=== PATIENT | female | born 1945 | race Caucasian/White ===

== ENCOUNTER 2016-12-08 11:15 | Inpatient (IN) | payer BC, MEDICARE ==
[~2016-12-08] VITALS: Ht 153.7 cm; Wt 52.5 kg
[2016-12-08] MEDS ORDERED: NS 1,000 ML IV ONE (12:15)
[2016-12-08 12:39] LABS: BASO # 0.1 K/mm3 (0.0-0.2); BASO % 0.4 % (0.0-1.0); EOS # 0.1 K/mm3 (0.0-0.50); EOS % 0.4 % (0.0-3.0); LARGE UNSTAINED CELL # 0.4 K/mm3 (0.0-0.4); LARGE UNSTAINED CELL % 1.9 % (0.0-4.0); LYMPH # 2.3 K/mm3 (1.5-4.5); LYMPH % 9.7 % (24.0-44.0); MEAN CORPUSCULAR HEMOGLOBIN 27.3 pg (27.0-33.0); MEAN CORPUSCULAR HGB CONC 31.1 g/dl (32.0-36.5); MEAN CORPUSCULAR VOLUME 87.9 fl (80.0-96.0); MONO # 1.1 K/mm3 (0.0-0.8); MONO % 5.6 % (0.0-5.0); NEUTROPHILS # 16.2 K/mm3 (1.8-7.7); NEUTROPHILS % 82.1 % (36.0-66.0); PLATELET COUNT, AUTOMATED 588 k/mm3 (150-450); RED CELL DISTRIBUTION WIDTH 13.8 % (11.5-14.5); WHITE BLOOD COUNT 19.7 K/mm3 (4.0-10.0)
[2016-12-08 13:02] LABS: ALBUMIN 2.5 GM/DL (3.2-5.2); ALBUMIN/GLOBULIN RATIO 0.42 (1.00-1.93); ALKALINE PHOSPHATASE 335 U/L (45-117); ALT/SGPT 24 U/L (12-78); AMYLASE 48 U/L (25-115); ANION GAP 9 MEQ/L (8-16); AST/SGOT 19 U/L (15-37); BILIRUBIN,DIRECT < 0.1 MG/DL (0.0-0.2); BILIRUBIN,TOTAL 0.3 MG/DL (0.2-1.0); BLOOD UREA NITROGEN 23 MG/DL (7-18); CALCIUM LEVEL 9.3 MG/DL (8.8-10.2); CARBON DIOXIDE LEVEL 27 MEQ/L (21-32); CHLORIDE LEVEL 99 MEQ/L (98-107); CREATININE FOR GFR 1.15 MG/DL (0.55-1.02); GLOMERULAR FILTRATION RATE 49.7 (>39); GLUCOSE, FASTING 120 MG/DL (83-110); POTASSIUM SERUM 4.2 MEQ/L (3.5-5.1); SODIUM LEVEL 135 MEQ/L (136-145); TOTAL PROTEIN 8.4 GM/DL (6.4-8.2)
[2016-12-08] MEDS ORDERED: ISOVUE-370 76% 100ML VIAL (Q9967) As Ordered ONE (13:36)
[2016-12-08] MEDS ORDERED: MORPHINE 2 MG/ML 1ML SYRINGE IV ONE (14:15)
--- NOTE | 2016-12-08 14:19 | REP ---
CT study of the abdomen and pelvis with IV but without oral contrast: History: Large left breast mass question malignancy, metastases. Comparison CT study abdomen and pelvis is from January 03, 2009. Findings: Preliminary digital environmental science technician radiograph of the abdomen and pelvis show a normal bowel gas pattern. There are granulomatous calcifications in the liver and scattered in the spleen. No hepatic or splenic mass lesion is observed. No adrenal lesion is seen on either side. Pancreas is intact. The main pancreatic duct is somewhat dilated however measuring 5 mm in greatest diameter. The gallbladder and common bile duct are not dilated. There is a phrygian cap like configuration to the gallbladder. There is moderate left-sided hydronephrosis. This is associated with a large calculus, 1.7 x 1.0 cm in diameter lodged in the ureteropelvic junction. There is a droplet of air at the superior margin of the calculus and a tiny bubble of air is seen in the cortical medullary junction of the upper pole of the left kidney. The right kidney is unremarkable. The patient is status post hysterectomy. Small and large intestinal bowel loops are unremarkable. There are three or four left periaortic retroperitoneal lymph nodes, the largest of which measures 1.8 x 1.4 cm. These could be reactive. No other adenopathy. Bone window settings show no bony destructive lesion. Impression: 1. 1.7 cm obstructing ureteropelvic junction stone at the left kidney with moderate to marked left-sided hydronephrosis. Two bubbles of collecting system air are seen raising the question of emphysematous pyelonephritis versus post instrumentation gas. 2. Mildly dilated main pancreatic duct, no evidence of pancreatic mass. 3. Mild left periaortic retroperitoneal lymphadenopathy question reactive adenopathy. Signed by Clark López MD 12/08/2016 06:27 P
--- NOTE | 2016-12-08 14:40 | REP ---
CT study of the chest with IV contrast: History: Large left breast mass. Question malignancy, question metastasis. CT contrast dose: 100 mL of Isovue 370 is administered intravenously by auto injector. CT findings: Digital preliminary process tech radiograph demonstrates an irregular mass projecting in the left perihilar region. 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 A deep 3.6 cm wide ulceration is seen. The lesion appears to extend to the superficial surface of the pectoralis musculature. Overall, the left breast mass measures 8.6 x 3.2 x 7.1 cm. There is left axillary lymphadenopathy with a left axillary lymph node measuring 2.0 x 0.8 x 1.7 cm. There is fairly extensive skin thickening and subdermal edema in the inferior aspect of the left breast. No hilar or mediastinal mass or adenopathy is observed. There are one or two granulomatous calcified lymph nodes in the precarinal region. The lung jose show no evidence of pulmonary mass lesion or nodule. There is mild biapical pleuroparenchymal fibrosis. There are also minimal emphysematous changes in the upper lobes. No bony destructive lesion is seen. There are degenerative changes in the thoracic spine. There is a granulomatous calcification in the right apex anteriorly. Impression: Large ulcerated left breast mass 8.6 cm in greatest diameter. There is one visible enlarged lymph node in the left axilla. No other evidence to suggest metastatic disease. Signed by Clark López MD 12/08/2016 06:27 P
[2016-12-08] MEDS ORDERED: cefTRIAXone SOD 1 GM in D5W MINI-BAG PLUS 50 ML IV ONE (16:15)
[2016-12-08] MEDS ORDERED: NS 1,000 ML IV SCH (17:07)
--- NOTE | 2016-12-08 18:24 | CR ---
DATE OF CONSULTATION: 12/08/2016 REASON FOR CONSULTATION: Left hydronephrosis due to 1.9 cm renal pelvic stone. HISTORY OF PRESENT ILLNESS: This is a 71-year-old female patient who actually has a 10 mm left kidney stone in the ureteropelvic junction (UPJ) with left hydronephrosis. This was detected on a CT scan of the abdomen and pelvis which was ordered in the emergency department (ED) of [facility]. Patient came to the emergency department due to fatigue, left flank pain, and chills. She has mild nausea, no vomiting. LABORATORY DATA: Show a white blood count of 19.7, hematocrit of 30.3, hemoglobin of 9.4, and a platelet count of 588. Chemistry shows sodium 135, potassium 4.2, chloride 99, carbon dioxide 27, creatinine 1.15, fasting glucose 120, lactic acid 1.1. PHYSICAL EXAMINATION: She is awake, oriented times three, well-nourished. Her abdomen is soft, nontender, nondistended. Bowel sounds present. Rebound negative. She has left flank pain compatible which was seen in the CT scan which shows hydronephrosis and a 1 cm stone in the left UPJ. IMPRESSION AND PLAN: This is a 71-year-old female patient that we were consulted due to left hydronephrosis and a 1 cm left UPJ stone. The patient has an increased white blood count and left flank pain. Due to the reason that she has also a possible breast neoplasm, the patient will be admitted by the hospitalist service who will hydrate her and evaluate her from that standpoint of view as well as treat her with antibiotics due to her acute left hydronephrosis, possible complicated pyelonephritis. We have consulted interventional radiology for a left nephrostomy tube to drain that kidney. Interventional radiology will take her tomorrow morning for left nephrostomy tube placement and drainage to gravity. Once the patient is treated with IV antibiotics, the upper tract drained in an elective fashion, the left kidney stone will actually be treated through a percutaneous nephrolithotomy (PCNL) in elective fashion.
[2016-12-08] MEDS: NS 1,000 ML IV SCH (20:28)
--- NOTE | 2016-12-08 21:00 | HPE ---
DATE OF ADMISSION: 12/08/2016 PRIMARY CARE PROVIDER: None ATTENDING PHYSICIAN: Nicolle Mcdonald MD REASON FOR ADMISSION: Flank pain. HISTORY OF PRESENT ILLNESS: The patient is a 71-year-old female with no known past medical problems. She has not seen a doctor in over 8 years. Last provider she saw was a urologist 7 years ago for kidney stones, presented to the emergency room complaining of left flank pain. She had a CT abdomen and pelvis which showed a 1.7 cm obstructing uteropelvic junction stone at the left kidney and moderate to marked left sided hydronephrosis. The patient was also found to have a large breast mass/ulcer; underwent a CT of her chest which showed a large ulcerated left breast mass measuring 8.6 cm in greatest diameter, one visible enlarged lymph node in the left axilla, no other evidence to suggest metastatic disease. Hospitalist was called for the admission. The patient stated that she has had this breast mass for the past 4 years and it has gotten progressively worse, especially over the last year. She had a total of 12 pounds weight loss over the last 2 months, stating that she "did not go to any doctor, because she is stupid". Now breast mass is getting gradually bigger and draining. The patient also stated that she has been having left-sided pain with nausea and vomiting for the past 2 weeks. Denies any fevers or chills. Finally presented to the hospital because her symptoms did not resolve. The patient was in the emergency room along with her daughter and her son and hospitalist was called for the admission. REVIEW OF SYSTEMS: 12-point review of systems was obtained all which was negative except for those mentioned above. PAST MEDICAL HISTORY: Significant history of kidney stones. PAST SURGICAL HISTORY: Kidney stone lithotripsy. ALLERGIES: None. MEDICATIONS: None. SOCIAL HISTORY: The patient smokes a half a pack per day for the past 60 years and drinks occasionally. FAMILY HISTORY: The patient's mother had a history of ovarian cancer. PHYSICAL EXAMINATION: Vitals on admission: Temperature 98.6, pulse 96, respiratory rate 16, blood pressure is 152/65, pulse ox 98% on room air. HEENT: Pupils equal, round, reactive to light and accommodation. Neck: Supple. No jugular venous distention (JVD). Lungs clear to auscultation bilaterally. Chest wall: The patient has a large ulcerated mass to her left breast that is draining serosanguineous fluid. Abdomen: Flank with tenderness to palpation on the left. Extremities: No clubbing, cyanosis or edema. Neuro: Cranial nerves II-XII grossly intact. LABORATORY FINDINGS: WBC is 19.7, hemoglobin 9.4, hematocrit 30.3, platelet count 588. Sed rate less than 140, sodium 135, potassium 4.2, chloride 99, BUN 23, creatinine 1.1, lactic acid 1.1, fasting glucose 120, alkaline phosphatase 335, AST/ALT 90 and 24 respectively. C-reactive protein 20.9, lipase 111. Urinalysis was hazy in appearance, +1 protein, 3 leukocyte esterase, 124 WBCs, +1 bacteria. IMAGING STUDIES: As above. ASSESSMENT/PLAN: 1. Obstructing stone 1.[address] Pierson was consulted and saw the patient in the emergency room. He recommended nephrostomy tube. Dr. Jong López was consulted. He agreed to put in the nephrostomy tube in the morning. The patient will be made n.p.o. after midnight. She had received one dose of ceftriaxone in the emergency room. We will continue IV fluids and continue to monitor the patient in PCU. The patient is currently hemodynamically stable. No evidence of sepsis at this time. 2. Abnormal urinalysis. Will await cultures and sensitivity; will continue IV ceftriaxone for the time being. 3. Large ulcerated breast mass on the left. Dr. Hernandez was consulted. The patient will likely need an oncology workup. 4. History of the kidney stones, status post lithotripsy in the past. Per Dr. Pierson, they are likely not going to remove the stone at this time. After the patient gets nephrostomy tube and workup for the breast mass she can be discharged home and follow up with them in the office for stone removal. Dr. Earl will take over for Dr. Pierson starting tomorrow. 5. Deep venous thrombosis (DVT) prophylaxis. Sequential compression devices (SCDs) while in bed.
[2016-12-08] MEDS ORDERED: LIDOCAINE 5% OINT 30 GM TOP PRN (22:00)
[2016-12-08] MEDS: MORPHINE 2 MG/ML 1ML SYRINGE IV PRN (23:31)
[2016-12-08 23:34] VITALS: BP 160/72
[2016-12-08] MEDS ORDERED: ONDANSETRON 4MG/2ML VIAL (J2405) IV PRN (23:45)
[2016-12-09] VITALS (7 sets, daily range): BP systolic 110–125; BP diastolic 54–60
[2016-12-09 05:25] LABS: MEAN CORPUSCULAR HEMOGLOBIN 26.8 pg (27.0-33.0); MEAN CORPUSCULAR HGB CONC 30.4 g/dl (32.0-36.5); MEAN CORPUSCULAR VOLUME 87.9 fl (80.0-96.0); RED CELL DISTRIBUTION WIDTH 13.9 % (11.5-14.5)
[2016-12-09 05:45] LABS: ALBUMIN/GLOBULIN RATIO 0.4 (1.00-1.93); BILIRUBIN,TOTAL 0.2 MG/DL (0.2-1.0); CALCIUM LEVEL 7.9 MG/DL (8.8-10.2); CREATININE FOR GFR 1.11 MG/DL (0.55-1.02); GLOMERULAR FILTRATION RATE 51.7 (>39); POTASSIUM SERUM 4.4 MEQ/L (3.5-5.1)
[2016-12-09] MEDS: NS 1,000 ML IV SCH (06:21)
[2016-12-09] MEDS: MORPHINE 2 MG/ML 1ML SYRINGE IV PRN (06:22)
--- NOTE | 2016-12-09 10:39 | IPNPDOC ---
Subjective Date Seen The patient was seen on 12/09/16. Subjective Chief Complaint/HPI The patient is a 71-year-old female admitted with a reason for visit of Left Ureteral Calculus. General: Denies: Chills Constitutional: Denies: Chills Eyes: Denies: Conjunctivae inflammation, Eyelid inflammation, Pain, Vision change Skin: Reports: Lesions (left upper lateral breast) Pulmonary: Denies: Cough, Dyspnea, Pleuritic Chest Pain Cardiovascular: Denies: Chest Pain, Edema, Lt Headedness, Orthopnea, Palpitations, Paroxysmal Noc. Dyspnea Musculoskeletal: Denies: Back Pain Neurological: Denies: Numbness, Weakness Psych: Reports: Mood Normal Objective Physical Examination General Exam: Positive: Alert, Cooperative Eye Exam: Positive: Conjunctiva & lids normal, EOMI, Negative: Ptosis, Sclera icteric ENT Exam: Positive: Atraumatic, Mucous membr. moist/pink, Nares Patent, Pharynx Normal, Tongue Midline Neck Exam: Positive: Supple Chest Exam: Positive: Clear to auscultation, Normal air movement, Negative: Diminished, Rales, Rhonchi, Wheezing Heart Exam: Positive: Normal S1, Normal S2, Rate Normal, Negative: Bradycardic, Tachycardic Telemetry: Positive: No significant arrhythmia Abdomen Exam: Positive: Normal bowel sounds, Soft, Negative: BS Hyperactive, BS Hypoactive, Hepatospenomegaly, Tenderness Extremity Exam: Positive: Normal pulses, Negative: Clubbing, Cyanosis, Edema Skin Exam: Positive: Breakdown (left upper lateral breast, fungating and malodour ulceration 2 in by 1 in) Psych Exam: Positive: Mental status NL Assessment /Plan Problems (1) Left ureteral calculus Status: Acute Response to Treatment: Stable Problem Text: obstructing stone 1.7 cm with hydronephrosis urology consulted, appreciate their recommendations- IR will place nephrostomy tube to drain today, not likely to remove stone this visit, she can be d/c home after nephrostomy tube and wkup for breast mass and f/u with urology as outpt for stone removal. pt NPO for above procedure pain control w morphine-at bedside pt not complaining of back pain any more c/w IV fluids s/p 1 dose ceftriaxone in ED (2) Left breast mass Status: Acute Response to Treatment: Stable Problem Text: -large 2 in. length by 1 in. width, fungating, mal-odorous ulceration of left upper, lateral region of breast general surgery consulted-appreciate their recommendations pt will likely need to f/u outpt with oncology for further care & wkup (3) Anemia Status: Acute Response to Treatment: Stable Problem Text: pts Hemoglobin dropped to 7.9 from 9.4 on admission will trend H/H q 6h obtained consent for transfusion if needed type & screen hemodynamically stable occult blood pending c/w NS at 100, s/p NS bolus 1L continue to monitor (4) Abnormal urinalysis Status: Acute Response to Treatment: Stable Problem Text: s/p ceftriaxone in ED awaiting urine cultures (5) DVT prophylaxis Status: Acute Response to Treatment: Stable Problem Text: SCD TEDS Plan/VTE VTE Prophylaxis Ordered?: Yes VS, I&O, 24H, Fishbone Vital Signs/I&O Vital Signs Date Time Temp Pulse Resp B/P Pulse Ox O2 Delivery O2 Flow Rate FiO2 12/09/16 07:45 99.4 76 18 110/60 95 Room Air I&O- Last 24 Hours up to 6 AM 12/09/16 06:00 Intake Total 1000 ml Output Total 675 ml Balance 325 ml Laboratory Data 24H LABS Laboratory Tests 2 12/08/16 12:27: Aspartate Amino Transf (AST/SGOT) 19, Alanine Aminotransferase (ALT/SGPT) 24, Alkaline Phosphatase 335H, Total Bilirubin 0.3, Direct Bilirubin < 0.1, Albumin 2.5L, Albumin/Globulin Ratio 0.42L, Amylase Level 48, Anion Gap 9, White Blood Count 19.7H, Red Blood Count 3.45L, Hemoglobin 9.4L, Hematocrit 30.3L, Mean Corpuscular Volume 87.9, Mean Corpuscular Hemoglobin 27.3, Mean Corpuscular Hemoglobin Concent 31.1L, Red Cell Distribution Width 13.8, Platelet Count 588H , Neutrophils (%) (Auto) 82.1H, Lymphocytes (%) (Auto) 9.7L, Monocytes (%) (Auto ) 5.6H, Eosinophils (%) (Auto) 0.4, Basophils (%) (Auto) 0.4, Neutrophils # ( Auto) 16.2H, Lymphocytes # (Auto) 2.3, Monocytes # (Auto) 1.1H, Eosinophils # ( Auto) 0.1, Basophils # (Auto) 0.1, C-Reactive Protein, Quantitative 20.90H, Calcium Level 9.3, Glomerular Filtration Rate 49.7, Large Unclassified Cells # 0.4, Large Unclassified Cells % 1.9, Lipase 111, Total Protein 8.4H 12/08/16 12:45: Lactic Acid Level 1.1 12/08/16 14:13: Urine Amorphous Sediment , Urine Appearance HAZY, Urine Color YELLOW, Urine pH 6.0, Urine Specific Antelope 1.024, Urine Protein 1+H, Urine Glucose (UA) NEGATIVE, Urine Ketones TRACEH, Urine Urobilinogen 0.2, Urine Bilirubin NEGATIVE , Urine Leukocyte Esterase 3+H, Urine Bacteria (Auto) 1+H, Urine Blood NEGATIVE , Urine Calcium Carbonate Cryst(Auto) , Urine Calcium Oxalate Cryst (Auto) , Urine Calcium Phosphate Elsy (Auto) , Urine Cellular Casts , Urine Cystine Crystals , Urine Granular Casts (Auto) , Urine Hyaline Casts (Auto) 0, Urine Leucine Crystals , Urine Mucus (Auto) SMALL, Urine Nitrite POSITIVE, Urine Oval Fat Bodies (Auto) , Urine RBC (Auto) 7H, Urine Renal Epithelial Cells , Urine Sperm (Auto) , Urine Squamous Epithelial Cells 0, Urine Transitional Epithelial Cells , Urine Trichomonas (Auto) , Urine Triple Phosphate Cryst (Auto) , Urine Tyrosine Crystals , Urine Uric Acid Crystals (Auto) , Urine WBC (Auto) 124H, Urine Waxy Casts (Auto) , Urine Yeast-Like Cells (Auto) 12/08/16 17:17: Erythrocyte Sedimentation Rate > 140H 12/09/16 05:17: Blood Urea Nitrogen 15, Creatinine 1.11H, Sodium Level 137, Potassium Level 4.4 , Chloride Level 105, Carbon Dioxide Level 24, Calcium Level 7.9#L, Aspartate Amino Transf (AST/SGOT) 10L, Alanine Aminotransferase (ALT/SGPT) 14, Alkaline Phosphatase 251H, Total Bilirubin 0.2, Total Protein 7.0, Albumin 2.0L, Albumin/ Globulin Ratio 0.40L, Anion Gap 8, Glomerular Filtration Rate 51.7 CBC/BMP Laboratory Tests 12/08/16 12:27 Red Blood Count 3.45 L, Mean Corpuscular Volume 87.9, Mean Corpuscular Hemoglobin 27.3, Mean Corpuscular Hemoglobin Concent 31.1 L, Red Cell Distribution Width 13.8, Neutrophils (%) (Auto) 82.1 H, Lymphocytes (%) (Auto) 9.7 L, Monocytes (%) (Auto) 5.6 H, Eosinophils (%) (Auto) 0.4, Basophils (%) ( Auto) 0.4, Neutrophils # (Auto) 16.2 H, Lymphocytes # (Auto) 2.3, Monocytes # ( Auto) 1.1 H, Eosinophils # (Auto) 0.1, Basophils # (Auto) 0.1 12/09/16 05:17 Red Blood Count 2.94 L, Mean Corpuscular Volume 87.9, Mean Corpuscular Hemoglobin 26.8 L, Mean Corpuscular Hemoglobin Concent 30.4 L, Red Cell Distribution Width 13.9, Calcium Level 7.9 #L, Aspartate Amino Transf (AST/SGOT ) 10 L, Alanine Aminotransferase (ALT/SGPT) 14, Alkaline Phosphatase 251 H, Total Bilirubin 0.2, Total Protein 7.0, Albumin 2.0 L Microbiology Microbiology 12/08/16 Blood Culture, Received Pending 12/08/16 Blood Culture, Received Pending 12/08/16 Urine Culture, Received Pending GME ATTESTATION GME ATTESTATION My preceptor for this patient encounter was physically present in the building during the encounter and was fully available. As needed, all aspects of the patient interview, examination, medical decision making process, and medical care plan development were reviewed and approved by the preceptor. Preceptor is aware and concurs with the plan as stated in the body of this note and will attest to such by his/her cosignature. RONNI STRANGE DO Dec 09, 2016 10:39
[2016-12-09] MEDS ORDERED: SODIUM BICARBONATE 8.4% INJ 50MEQ 50 ML VIAL As Ordered ONE (11:13)
[2016-12-09] MEDS ORDERED: LIDOCAINE 2% MDV 20 ML VIAL As Ordered ONE (11:13)
[2016-12-09] MEDS ORDERED: ISOVUE-300 61% 50ML VIAL (Q9967) As Ordered ONE (11:14)
[2016-12-09] MEDS ORDERED: MIDAZOLAM INJ 2 MG/2 ML VIAL (J2250) As Ordered ONE (11:42)
[2016-12-09] MEDS ORDERED: fentaNYL 100 MCG/2 ML INJECTION (J3010) As Ordered ONE (11:42)
[2016-12-09] MEDS ORDERED: PERCOCET 5MG/325MG TAB As Ordered ONE (13:06)
[2016-12-09] MEDS ORDERED: fentaNYL 100 MCG/2 ML INJECTION (J3010) IV PRN (13:15)
[2016-12-09] MEDS ORDERED: LR 1,000 ML IV SCH (13:15)
[2016-12-09] MEDS ORDERED: PERCOCET 5MG/325MG TAB PO PRN (13:15)
[2016-12-09] MEDS ORDERED: METOCLOPRAMIDE INJ 10MG/2ML VIAL (J2765) IV PRN (13:15)
[2016-12-09] MEDS ORDERED: ONDANSETRON 4MG/2ML VIAL (J2405) IV PRN (13:15)
[2016-12-09] MEDS: cefTRIAXone SOD 1 GM in D5W MINI-BAG PLUS 50 ML IV SCH (16:37)
--- NOTE | 2016-12-09 16:58 | REP ---
LEFT PERCUTANEOUS NEPHROSTOMY TUBE PLACEMENT: The procedure was performed under the direct supervision of Dr. López. The patient has a history of a 1.7 cm obstructing ureteropelvic junction stone seen on a previous CT scan dated 12/08/2016. Anesthesia was present for sedation throughout the case. The left mid pole calyx was localized using ultrasound guidance. The skin was prepped and draped in a sterile fashion. 1% Xylocaine was used as a local anesthetic. Using ultrasound guidance and Seldinger technique an 8.5-Telugu Resolve nephrostomy catheter was inserted into the renal pelvis. Approximately 110 mL of proteinaceous fluid was withdrawn and sent to the lab. The catheter was flushed with approximately 5 mL of sterile saline. The catheter was connected to a gravity drainage bag. The catheter was affixed to the skin and a sterile dressing was applied. The patient was then taken to recovery by anesthesia. The patient tolerated the procedure well and there were no immediate complications. Reviewed by JERI Wall 12/10/2016 05:14 PEdited and Signed by Clark López MD 12/11/2016 12:41 P
[2016-12-10] VITALS: BP 128/60
[2016-12-10 04:00] VITALS: BP 123/60
[2016-12-10 05:57] LABS: MEAN CORPUSCULAR HEMOGLOBIN 27.4 pg (27.0-33.0); MEAN CORPUSCULAR HGB CONC 31.4 g/dl (32.0-36.5); MEAN CORPUSCULAR VOLUME 87.1 fl (80.0-96.0); RED CELL DISTRIBUTION WIDTH 13.9 % (11.5-14.5); WHITE BLOOD COUNT 13.2 K/mm3 (4.0-10.0)
[2016-12-10] MEDS ORDERED: ACETAMINOPHEN TAB 650MG DOSE (2X325MG) PO PRN (06:15)
[2016-12-10 06:16] LABS: ALBUMIN/GLOBULIN RATIO 0.39 (1.00-1.93); BILIRUBIN,TOTAL 0.2 MG/DL (0.2-1.0); CREATININE FOR GFR 1.2 MG/DL (0.55-1.02); GLOMERULAR FILTRATION RATE 47.3 (>39); TOTAL PROTEIN 7.1 GM/DL (6.4-8.2)
[2016-12-10 08:00] VITALS: BP 115/53
[2016-12-10] MEDS: NS 1,000 ML IV SCH ×2 (08:53→20:20)
[2016-12-10] MEDS ORDERED: PREVNAR 13 VACCINE SYRINGE (CPT CODE:90670) IM SCH (09:00)
--- NOTE | 2016-12-10 09:57 | REP ---
CT Head without contrast HISTORY: breast mass COMPARISON: None Areas of decreased attenuation are present in the periventricular white matter. This represents small-vessel ischemic disease. There is no intraparenchymal hemorrhage, acute infarct, mass or midline shift. The ventricular system and cortical sulci are dilated consistent with minimal volume loss. There is no extra cerebral collection. There is no fracture. Mucosal thickening is present in the left ethmoid and right sphenoid sinuses. IMPRESSION: 1. Small vessel ischemic disease. 2. Minimal volume loss. Signed by Bryon Topete MD 12/10/2016 09:48 A
[2016-12-10] MEDS ORDERED: LIDOCAINE 1% MDV 20ML VIAL As Ordered ONE ×2 (11:02→13:37)
[2016-12-10] MEDS ORDERED: LIDOCAINE W/EPINEPHRINE 1% 20ML VIAL SC ONE (11:30)
--- NOTE | 2016-12-10 11:53 | IPNPDOC ---
Subjective Date Seen The patient was seen on 12/10/16. Subjective Chief Complaint/HPI The patient is a 71-year-old female admitted with a reason for visit of Left Ureteral Calculus. General: Denies: Chills, Night Sweats Constitutional: Denies: Weakness Pulmonary: Denies: Cough, Dyspnea Cardiovascular: Denies: Chest Pain, Palpitations Gastrointestinal: Denies: Abdominal Pain, Nausea, Vomiting Musculoskeletal: Reports: Back Pain (from nephrostomy tube placement one day prior) Objective Physical Examination General Exam: Positive: Alert, Cooperative Eye Exam: Positive: Conjunctiva & lids normal, EOMI, Negative: Ptosis, Sclera icteric ENT Exam: Positive: Atraumatic, Mucous membr. moist/pink, Nares Patent, Pharynx Normal, Tongue Midline Neck Exam: Positive: Supple Chest Exam: Positive: Clear to auscultation, Normal air movement, Negative: Diminished, Rales, Rhonchi, Wheezing Heart Exam: Positive: Normal S1, Normal S2, Rate Normal, Negative: Bradycardic, Tachycardic Telemetry: Positive: No significant arrhythmia Abdomen Exam: Positive: Normal bowel sounds, Soft, Negative: BS Hyperactive, BS Hypoactive, Hepatospenomegaly, Tenderness Extremity Exam: Positive: Normal pulses, Negative: Clubbing, Cyanosis, Edema Skin Exam: Positive: Breakdown (left upper lateral breast, fungating and malodour ulceration 2 in by 1 in, unchanged from one day prior) Psych Exam: Positive: Mental status NL Assessment /Plan Problems (1) Left ureteral calculus Status: Acute Response to Treatment: Stable Problem Text: obstructing stone 1.7 cm with hydronephrosis urology consulted, appreciate their recommendations s/p nephrostomy tube to drain one day prior by IR not likely to remove stone this visit f/u with urology as outpt. for stone removal. pain control w oxycodone-at bedside pt not complaining of back pain any more c/w IV fluids c/w ceftriaxone (2) Left breast mass Status: Acute Response to Treatment: Stable Problem Text: -large 2 in. length by 1 in. width, fungating, mal-odorous ulceration of left upper, lateral region of breast u/s breast bx. today by general surgery tumor markers pending bone scan, CT head wound cx pending pt will likely need to f/u with oncology outpt (3) Anemia Status: Acute Response to Treatment: Stable Problem Text: stable currently at 8.5/27.0 pts Hemoglobin dropped to 7.9 from 9.4 on admission will trend H/H q 6h s/p 1 unit PRBC obtained consent for transfusion type & screen hemodynamically stable occult blood pending c/w NS at 100, s/p NS bolus 1L continue to monitor (4) Abnormal urinalysis Status: Acute Response to Treatment: Stable Problem Text: s/p ceftriaxone in ED awaiting urine cultures (5) DVT prophylaxis Status: Acute Response to Treatment: Stable Problem Text: SCD TEDS Plan/VTE VTE Prophylaxis Ordered?: Yes VS, I&O, 24H, Fishbone Vital Signs/I&O Vital Signs Date Time Temp Pulse Resp B/P Pulse Ox O2 Delivery O2 Flow Rate FiO2 12/10/16 08:00 98.9 75 18 115/53 97 Room Air I&O- Last 24 Hours up to 6 AM 12/10/16 06:00 Intake Total 2920 ml Output Total 3070 ml Balance -150 ml Laboratory Data 24H LABS Laboratory Tests 2 12/10/16 05:35: Blood Urea Nitrogen 12, Creatinine 1.20H, Sodium Level 136, Potassium Level 4.0 , Chloride Level 103, Carbon Dioxide Level 24, Calcium Level 8.0L, Aspartate Amino Transf (AST/SGOT) 14L, Alanine Aminotransferase (ALT/SGPT) 17, Alkaline Phosphatase 236H, Total Bilirubin 0.2, Total Protein 7.1, Albumin 2.0L, Albumin/ Globulin Ratio 0.39L, Anion Gap 9, Glomerular Filtration Rate 47.3 12/10/16 07:23: CBC/BMP Laboratory Tests 12/09/16 14:26 12/09/16 21:16 12/10/16 05:35 Calcium Level 8.0 L, Aspartate Amino Transf (AST/SGOT) 14 L, Alanine Aminotransferase (ALT/SGPT) 17, Alkaline Phosphatase 236 H, Total Bilirubin 0.2 , Total Protein 7.1, Albumin 2.0 L, Red Blood Count 3.10 L, Mean Corpuscular Volume 87.1, Mean Corpuscular Hemoglobin 27.4, Mean Corpuscular Hemoglobin Concent 31.4 L, Red Cell Distribution Width 13.9 Microbiology Microbiology 12/08/16 Blood Culture - Preliminary, Resulted No growth after 24 hours . All specim... 12/08/16 Blood Culture - Preliminary, Resulted No growth after 24 hours . All specim... 12/09/16 Anaerobic Culture, Received Pending 12/09/16 Urine Culture, Received Pending 12/08/16 Urine Culture - Final, Complete Escherichia Coli 12/10/16 Gram Stain, Received Pending 12/10/16 Wound Culture, Received Pending 12/09/16 Gram Stain - Final, Resulted 12/09/16 Neisseria gonorrhoeae Culture, Resulted Pending GME ATTESTATION GME ATTESTATION My preceptor for this patient encounter was physically present in the building during the encounter and was fully available. As needed, all aspects of the patient interview, examination, medical decision making process, and medical care plan development were reviewed and approved by the preceptor. Preceptor is aware and concurs with the plan as stated in the body of this note and will attest to such by his/her cosignature. RONNI STRANGE DO Dec 10, 2016 11:53 ASCENCION DOMINGO MD Dec 11, 2016 07:11
--- NOTE | 2016-12-10 11:54 | RO ---
DATE OF PROCEDURE: 12/10/2016 PREPROCEDURE DIAGNOSIS: Left breast mass. POSTPROCEDURE DIAGNOSIS: Most likely left advanced left breast cancer. PROCEDURE: Punch biopsy of left breast mass. SURGEON: Dr. Hemant Hernandez. IT NETWORK ENGINEER: ANESTHESIA: Local anesthesia using 1% lidocaine. REMARKS: The patient tolerated the procedure. Punch biopsy is done and sent to pathology for diagnosis of what most likely is advanced breast cancer. DESCRIPTION OF PROCEDURE: After I explained the procedure to the patient and consent was obtained, a surgical time-out performed. The patient has large fungating breast mass accessible for biopsy. Using a 4 mm punch biopsy knife, the selected areas on the breast mass was infiltrated with local anesthesia and punch biopsies done in three separate areas of the breast mass, bleeding controlled with local pressure and dry dressing changes placed. The patient tolerated the procedure well. We will await for results of pathology.
[2016-12-10 11:56] VITALS: BP 121/58
[2016-12-10] MEDS: PERCOCET 5MG/325MG TAB PO PRN ×2 (12:10→21:39)
--- NOTE | 2016-12-10 14:05 | REP ---
WHOLE BODY RADIONUCLIDE BONE SCAN: HISTORY: Ulcerated mass left breast presumed left breast malignancy. TECHNIQUE: 20.9 mCi technetium 99m MDP is injected, and standard whole body bone scan imaging is acquired. SCINTIGRAPHIC FINDINGS: There is mild arthritic uptake in the acromioclavicular joints and shoulders bilaterally. Mild arthritic uptake is seen in the right wrist. There is osteoarthritic facet uptake at L5-S1 on the right in the lumbar spine, and minimal degenerative uptake is seen in the thoracic spine. There is soft tissue uptake in a large area of the left breast corresponding to left breast mass. There is no evidence to suggest skeletal metastatic disease. IMPRESSION: Soft tissue uptake in the left breast. Arthritic uptake pattern as above. No evidence to suggest skeletal metastatic disease. Signed by Clark López MD 12/10/2016 05:01 P
[2016-12-10] MEDS: cefTRIAXone SOD 1 GM in D5W MINI-BAG PLUS 50 ML IV SCH (15:29)
[2016-12-10 16:00] VITALS: BP 126/59
--- NOTE | 2016-12-10 17:34 | REP ---
ULTRASOUND GUIDED LEFT AXILLARY LYMPH NODE BIOPSY: The procedure was performed under the direct supervision of Dr. López. The patient has a history of one visible enlarged lymph node in the left axilla seen on a previous CAT scan dated 12/08/2016. The risks and benefits of the procedure were explained to the patient and informed consent was obtained. The left axillary lymph node was localized using ultrasound guidance. The skin was prepped and draped in a sterile fashion. 1% Xylocaine was used as a local anesthetic. Using ultrasound guidance a 19/20 gauge coaxial needle biopsy system was inserted and then advanced into the lymph node. 6 core biopsy samples were obtained and sent to the lab. The patient tolerated the procedure well and there were no immediate complications. Reviewed by JERI Wall 12/11/2016 04:06 PEdited and Signed by Clark López MD 12/11/2016 04:45 P
[2016-12-10 20:00] VITALS: BP 120/56
[2016-12-11 05:49] LABS: MEAN CORPUSCULAR HEMOGLOBIN 26.8 pg (27.0-33.0); MEAN CORPUSCULAR HGB CONC 30.5 g/dl (32.0-36.5); MEAN CORPUSCULAR VOLUME 87.8 fl (80.0-96.0); RED CELL DISTRIBUTION WIDTH 13.8 % (11.5-14.5); WHITE BLOOD COUNT 13.2 K/mm3 (4.0-10.0)
[2016-12-11 06:02] LABS: ALBUMIN 1.9 GM/DL (3.2-5.2); ALKALINE PHOSPHATASE 203 U/L (45-117); ALT/SGPT 19 U/L (12-78); ANION GAP 7 MEQ/L (8-16); AST/SGOT 16 U/L (15-37); BILIRUBIN,TOTAL 0.1 MG/DL (0.2-1.0); BLOOD UREA NITROGEN 13 MG/DL (7-18); CARBON DIOXIDE LEVEL 23 MEQ/L (21-32); CHLORIDE LEVEL 106 MEQ/L (98-107); CREATININE FOR GFR 0.97 MG/DL (0.55-1.02); GLOMERULAR FILTRATION RATE > 60.0 (>39); GLUCOSE, FASTING 100 MG/DL (83-110); SODIUM LEVEL 136 MEQ/L (136-145); TOTAL PROTEIN 6.7 GM/DL (6.4-8.2)
[2016-12-11] MEDS ORDERED: PERCOCET PO (06:21)
[2016-12-11] MEDS ORDERED: ACET65TA PO (06:21)
[2016-12-11] MEDS ORDERED: AUGM875T27 PO (06:21)
[2016-12-11] MEDS ORDERED: AUGMENTIN 875 MG TAB PO ONE (06:30)
[2016-12-11 08:00] VITALS: BP 134/58
[2016-12-11] MEDS ORDERED: LEVA500T PO ×2 (11:28→11:29)
[2016-12-11] MEDS ORDERED: LevoFLOXacin 750 MG TABLET PO ONE (11:45)
[2016-12-11 12:00] VITALS: BP 145/63
--- NOTE | 2016-12-11 15:55 | DSES ---
DATE OF ADMISSION: 12/08/2016 DATE OF DISCHARGE: 12/11/2016 CONSULTANTS: Dr. Hernandez, general surgeon. Dr. Pierson, urologist. PRIMARY DISCHARGE DIAGNOSES: 1. Obstructive uropathy, 1.7 cm obstructing stone requiring nephrostomy tube placement. 2. Large ulcerated breast mass on the left. 3. History of kidney stones, status post lithotripsy in the past. PROCEDURES DURING THIS ADMISSION: 1. Nephrostomy tube placement on 12/09/2016. 2. Axillary core biopsy, ultrasound guided of the left axillary lymph node on 12/10/2016. 3. Breast biopsy by general surgeon, Dr. Hernandez, 12/10/2016. DISCHARGE MEDICATIONS: - Augmentin 875 mg by mouth twice a day - Percocet one tablet every four hours as needed for mild to moderate pain - acetaminophen 650 mg every 6 hours FOLLOWUP ISSUES: Followup with general surgeon, Dr. Hernandez, regarding left breast ulcerated fungating mass to discuss pathology reports and possible referral to medical oncology. Nephrostomy tube care and followup with Dr. Pierson regarding obstructive uropathy within one week or discharge. HOSPITAL COURSE: This is a 71-year-old female who has not seen a physician in over 8 years, history of kidney stones, saw a urologist 7 years ago and complained of left flank pain and was found to have a 1.7 cm obstructive stone in the left kidney, moderate hydronephrosis. The patient was evaluated by Dr. Pierson. Nephrostomy tube was placed on 12/08/2016. The patient was placed on IV antibiotic during the hospital stay. Urinalysis showed Escherichia (E) coli sensitive to ampicillin. She was found to have a large fungating, malodorous, left breast mass, suspicious for malignancy and evaluated by biopsy and left axillary node biopsy. CT shows abdomen and pelvis showed no metastatic disease. The patient's bone scan and CT of the head were also negative. During the hospital stay, the patient remained anemic with hemoglobin of 8.8. No symptoms of chest pain, pressure or tightness, lightheadedness, dizziness. No transfusion was given. She had acute kidney injury, creatinine 1.2, which improved with nephrostomy tube to a creatinine of 0.97 with IV fluid hydration. 12/09/2016 urine culture grew out E coli, sensitive to Levaquin and ampicillin. LABORATORIES ON DISCHARGE: White count 13, hemoglobin 8.2, hematocrit 26, platelet count 552. Sodium 136, potassium 4, chloride 106, bicarbonate 23, BUN 13, creatinine 0.97, glucose 100, calcium 8, total bilirubin 0.1, AST 16, ALT 19, alkaline phosphatase 203, total protein 6.7, albumin 1.9. Urine culture with E coli, pansensitive. Left breast wound culture pending, pathology pending. IMAGING STUDIES: Chest CT showed large ulcerated left breast mass, 8.6 cm in greatest diameter, enlarged lymph node in left axilla. CT of the abdomen and pelvis with hydronephrosis in the left kidney, 1.7 cm obstructing kidney stone. CT of the head with small vessel ischemic disease, minimal volume loss. Bone scan: Soft tissue uptake in the left breast, no skeletal metastatic disease. Time spent on discharge: 30 minutes.
[2016-12-12 09:36] LABS: CARCINOEMBRYONIC ANTIGEN 2.4 NG/ML (<2.5)
== END 2016-12-11 13:20 | disposition home health service (06) | DRG 988 ==
LOC: M ED 12:49 → M ED INP 17:30 → M PCU 23:22
PROVIDERS: ADMIT Internal Medicine; ATTEND General Practice
PROC: 0T9130Z Drainage of Left Kidney with Drainage Device, Percutaneous Approach (ICD-10-PCS; 2016-12-09)
PROC: 0HBU0ZX Excision of Left Breast, Open Approach, Diagnostic (ICD-10-PCS; principal; 2016-12-10)
DX: N13.1 Hydronephrosis with ureteral stricture, not elsewhere classified (principal); F17.210 Nicotine dependence, cigarettes, uncomplicated; D64.9 Anemia, unspecified; N17.9 Acute kidney failure, unspecified; N63 Unspecified lump in breast; N39.0 Urinary tract infection, site not specified; B96.20 Unspecified Escherichia coli [E. coli] as the cause of diseases classified elsewhere

== ENCOUNTER → 2016-12-18 | Outpatient (REF) | payer MEDICARE ==
[~2016-12-18] MED LIST: ACET65TA PO; AUGM875T27 PO; LEVA500T PO; PERCOCET PO
== END ==
LOC: M LAB REF 17:14
PROVIDERS: ATTEND Surgery
DX: C50.919 Malignant neoplasm of unspecified site of unspecified female breast (principal)

== ENCOUNTER → 2016-12-19 | Outpatient (REF) | payer MEDICARE ==
[2016-12-19 13:01] LABS: BASO # 0.1 K/mm3 (0.0-0.2); BASO % 0.5 % (0.0-1.0); EOS # 0.2 K/mm3 (0.0-0.50); EOS % 1.2 % (0.0-3.0); LARGE UNSTAINED CELL # 0.2 K/mm3 (0.0-0.4); LARGE UNSTAINED CELL % 1.4 % (0.0-4.0); LYMPH # 3.2 K/mm3 (1.5-4.5); LYMPH % 18.1 % (24.0-44.0); MEAN CORPUSCULAR HEMOGLOBIN 27.6 pg (27.0-33.0); MEAN CORPUSCULAR HGB CONC 30.9 g/dl (32.0-36.5); MEAN CORPUSCULAR VOLUME 89.4 fl (80.0-96.0); MONO # 1.1 K/mm3 (0.0-0.8); MONO % 6.7 % (0.0-5.0); NEUTROPHILS # 11.8 K/mm3 (1.8-7.7); NEUTROPHILS % 72.2 % (36.0-66.0); PLATELET COUNT, AUTOMATED 583 k/mm3 (150-450); RED CELL DISTRIBUTION WIDTH 14.5 % (11.5-14.5); WHITE BLOOD COUNT 16.3 K/mm3 (4.0-10.0)
== END ==
LOC: M SFHCADAM 09:34
PROVIDERS: ATTEND Physician Assistant Medical
DX: D64.9 Anemia, unspecified (principal)

== ENCOUNTER → 2016-12-20 | Outpatient (REF) | payer MEDICARE | LOC: M SFHCADAM 12:40 | PROVIDERS: ATTEND Physician Assistant Medical | DX: D64.9 Anemia, unspecified (principal) ==

== ENCOUNTER → 2016-12-25 | Outpatient (REF) | payer MEDICARE | LOC: M SMT 12:11 | PROVIDERS: ATTEND Nurse Practitioner Women's Health | DX: N39.0 Urinary tract infection, site not specified (principal) ==

== ENCOUNTER → 2016-12-26 | Outpatient (CLI) | payer MEDICARE ==
--- NOTE | 2016-12-26 13:37 | REP ---
DIAGNOSTIC MAMMOGRAM RIGHT BREAST WITH RIGHT BREAST ULTRASOUND: Diagnostic mammogram of the right breast performed. Multiple views are obtained. Patient has a history of left breast cancer. Mild scattered fibroglandular tissue is seen in the right breast. No suspicious mass is seen although there is a nodule posteriorly in the upper outer quadrant which appears to represent a lymph node, demonstrating a lucent notch mammographically. The borders are quite well defined. Diameter is approximately 7 mm. There is no other evidence of mass or clustered microcalcifications. Real-time sonographic evaluation of the right breast is performed in the region of the axillary tail. 7 mm lymph node corresponds to the mammographic finding. IMPRESSION: ACR 2 benign mammogram right breast. No suspicious mass or clustered microcalcifications. Benign appearing lymph node in the right axillary tail. This mammogram was interpreted with the aid of an FDA-approved computer-aided detection system. The patient states she/he had a clinical breast exam in 11/2016. The patient letter being requested is M1. Signed by Steven Chatman MD 12/26/2016 05:20 P
== END ==
LOC: M RAD 10:51
PROVIDERS: ATTEND Surgery
DX: Z85.3 Personal history of malignant neoplasm of breast (principal)
CPT/HCPCS: 76642; G0206

== ENCOUNTER → 2016-12-30 | Outpatient (REF) | payer MEDICARE | LOC: M LAB REF 12:41 | PROVIDERS: ATTEND Internal Medicine Medical Oncology | DX: C50.919 Malignant neoplasm of unspecified site of unspecified female breast (principal) ==

== ENCOUNTER → 2016-12-31 | Outpatient (REF) | payer MEDICARE ==
[2016-12-31 13:23] LABS: MEAN CORPUSCULAR HGB CONC 31.5 g/dl (32.0-36.5); MEAN CORPUSCULAR VOLUME 92.1 fl (80.0-96.0); RED CELL DISTRIBUTION WIDTH 15.6 % (11.5-14.5); WHITE BLOOD COUNT 15.4 K/mm3 (4.0-10.0)
[2016-12-31 13:32] LABS: INR 1.05
[2016-12-31 13:50] LABS: CALCIUM LEVEL 9.8 MG/DL (8.8-10.2); CREATININE FOR GFR 1.14 MG/DL (0.55-1.02); GLOMERULAR FILTRATION RATE 50.2 (>39); POTASSIUM SERUM 4.9 MEQ/L (3.5-5.1)
== END ==
LOC: M LABDRWAD 12:10
PROVIDERS: ATTEND Nurse Practitioner Women's Health
DX: Z01.812 Encounter for preprocedural laboratory examination (principal); N20.0 Calculus of kidney

== ENCOUNTER → 2017-01-02 | Outpatient (CLI) | payer MEDICARE ==
[~2017-01-02] MED LIST changes: +FERR325T3 PO
[2017-01-02 12:17] LABS: INR 0.98
--- NOTE | 2017-01-02 16:30 | ECHO ---
DATE OF PROCEDURE: 01/02/2017 AGE: 71 GENDER: Female HEIGHT: 61 inches WEIGHT: 109 pounds BODY SURFACE AREA: 1.46 sq m OUTPATIENT: REFERRING PHYSICIAN: Dr. Kang INDICATION: Breast cancer-potentially cardiotoxic chemotherapy. MEASUREMENTS: 2D MEASUREMENTS: RV: 3.0 cm LV: 4.1 cm Septum: 0.8 cm Posterior wall: 0.9 cm Aortic root: 3.0 cm LA: 2.9 cm LVEF: 65% DOPPLER MEASUREMENTS: AV: 1.5 m/s LVOT: 1.98 m/s LVOT diameter: 1.8 cm MV-E: 50 A: 99 E/A ratio: 0.5 Early mitral deceleration time: 197 ms E prime: 3.8 A prime: 10 E/E prime ratio: 13.2 PV: 0.8 m/s Pulmonary artery acceleration time: 92 ms PASP: 38 mmHg IVC: 1.5 cm COMMENTS: Normal sinus rhythm/sinus bradycardia without intraventricular conduction disturbance. Normal cardiac chamber sizes and wall thickness. On real-time imaging from the parasternal and apical projections wall motion was symmetrical and normal to hyperkinetic. Mildly thickened mitral annulus and leaflet edges but adequate leaflet excursion and no posterior systolic buckling. Three equal size aortic cusps with marginally thickened cusp edges but adequate cusp separation. Normal aortic root size. No apparent intracardiac mass or pericardial effusion. Color flow Doppler study taken from the parasternal and projection showed mild to moderate mitral, mild tricuspid but no aortic insufficiency. There was also mild pulmonic insufficiency. Guided continuous wave Doppler of her aortic valve showed a normal peak systolic velocity against (left ventricle) LV outflow tract obstruction. Pulsed and continuous wave Doppler of her LV inflow tract taken from the apical four-chamber projection showed normal diastolic filling velocities against mitral stenosis. There was more prominent late diastolic / atrial dependent filling pattern in keeping with a degree of LV diastolic dysfunction. This was confirmed by a slightly prolonged early mitral deceleration time and tissue Doppler of her mitral annulus. Her current estimated mean left atrial pressure was upper limits of normal at 15 mmHg. Pulsed and continuous wave Doppler of her pulmonary trunk showed a normal peak systolic velocity against right ventricle (RV) outflow tract obstruction. Her pulmonary artery acceleration time was slightly abbreviated consistent with a mildly increased pulmonary vascular resistance. Guided continuous wave Doppler of her tricuspid valve allowed our estimation of her right ventricular systolic pressure (mildly increased). Her inferior vena cava was normal in size with normal respiratory collapse against an elevated central venous pressure. CONCLUSIONS: Normal left ventricular size, wall thickness and wall motion. Normal left atrial size but Doppler evidence of impairment of LV diastolic function yet estimated mean left atrial pressure upper limits of normal. Normal right heart chamber sizes and contraction with Doppler evidence of mild pulmonary hypertension. Normal inferior vena cava (IVC) size and collapse against an elevated central venous pressure. Mild degenerative changes of her mitral valvular apparatus with mild to moderate mitral insufficiency. Subtle aortic valvular sclerosis without functional abnormality. MTDD
== END ==
LOC: M CARPUL 10:49
PROVIDERS: ATTEND Internal Medicine Medical Oncology
DX: Z01.818 Encounter for other preprocedural examination (principal); C50.919 Malignant neoplasm of unspecified site of unspecified female breast; R94.31 Abnormal electrocardiogram [ECG] [EKG]; I34.0 Nonrheumatic mitral (valve) insufficiency

== ENCOUNTER → 2017-01-09 | Outpatient (CLI) | payer MEDICARE ==
[~2017-01-09] MED LIST changes: +DITR5TAB PO; +LIDOCAINE W/EPINEPHRINE 1% 20ML VIAL As Ordered ONE; +MIDAZOLAM INJ 2 MG/2 ML VIAL (J2250) As Ordered ONE; +SODIUM BICARBONATE 8.4% INJ 50MEQ 50 ML VIAL As Ordered ONE; +ceFAZolin 1GM INJ (J0690) As Ordered ONE; +fentaNYL 100 MCG/2 ML INJECTION (J3010) As Ordered ONE
--- NOTE | 2017-01-09 16:01 | REPKIM ---
CLINICAL HISTORY: Left breast ca. The referring service has asked a chest [id number] placement for chemotherapy. PROCEDURE PERFORMED: Placement of totally implantable venous access device under combined sonographic and fluoroscopic guidance INTERVENTIONALIST: Delmi Salomon MD CONSENT: The risks, benefits and alternatives to the procedure were explained to the patient and informed written consent was obtained. MEDICATIONS: Local Lidocaine, Ancef 1gm IV, Versed IV and Fentanyl IV. SEDATION: Conscious sedation using Versed 1.5 mg IV and Fentanyl 75 mcg IV; starting time at 1230 and end at 1322. Independent trained observer was present during the entire duration of the conscious sedation for monitoring. EBL: 5 mL DEVICE USED: Bard Port 8-Spanish, Single-Lumen Lot#[id number] PROCEDURE/FINDINGS: The patient was brought to the interventional radiology suite and was positioned supine on the table. Time out procedure was performed. Real time ultrasound was used and permanent image stored. The right IJ vein is patent and compressible. Using ultrasound guidance the internal jugular vein was accessed with a micropuncture needle, after infiltration of the skin and deep tissues with local anesthetic. A peel-away sheath was placed. The catheter tip was inserted via the sheath under controlled respiration. The sheath was removed, and the catheter was flushed with heparinized saline and clamped. Next attention was turned to creation of a subcutaneous pocket for the port along the upper chest. The overlying skin and deep tissues were infiltrated with local anesthetic. A transverse skin incision was made long enough to accommodate the reservoir, and using blunt dissection a subcutaneous pocket was created. A tunnel was created from the pocket to the access site. A clamp was advanced from the pocket incision to the venous access site and used to grasp the free end of the catheter and pull it through to the pocket incision. The catheter was trimmed, attached to the reservoir, and flushed with heparinized saline. The reservoir was inserted into the pocket and secured with 2-0 absorbable sutures. The deep tissue was closed with interrupted 2-0 Vicryl suture. The skin incision was closed with a running subcuticular suture of 4-0 Vicryl. The venotomy incision was closed with 4-0 Vicryl suture. Mastisol and Steri-Strips were applied. The port was then accessed and Heparin (100 units/mL concentration) locked in the port. A sterile dressing was then applied. Post procedure chest spot film radiograph showed the tip of the catheter is at the cavoatrial junction. The patient tolerated the procedure well with no immediate complications. This procedure was performed using ultrasound and fluoroscopy. Dr. Salomon was present. IMPRESSION: 1. The right IJ vein is patent and compressible. 2. Successful placement of right IJ chest port placement as discussed above. The chest [id number]-roff is ready for use. cc: Joanne Kang MD [facility]ITALPravin
== END | disposition home or self-care (01) ==
LOC: M IRPRO 11:39
PROVIDERS: ATTEND Internal Medicine Medical Oncology
DX: C50.912 Malignant neoplasm of unspecified site of left female breast (principal)
CPT/HCPCS: 36561; 76937; 77001; 99152; 99153; C1788; C1894; J0690; J2250; J3010

== ENCOUNTER → 2017-01-16 | Outpatient (CLI) | payer MEDICARE ==
[~2017-01-16] MED LIST changes: +CIPROFLOXACIN 500 MG TAB As Ordered ONE; +ISOVUE-300 61% 50ML VIAL (Q9967) As Ordered ONE; +LIDOCAINE 2% MDV 20 ML VIAL As Ordered ONE; -LIDOCAINE W/EPINEPHRINE 1% 20ML VIAL As Ordered ONE; -MIDAZOLAM INJ 2 MG/2 ML VIAL (J2250) As Ordered ONE; +SODIUM BICARBONATE 4 % INJ 2.4MEQ 5 ML VIAL (THIS HAS A PRESERVATIVE) As Ordered ONE; -SODIUM BICARBONATE 8.4% INJ 50MEQ 50 ML VIAL As Ordered ONE; -ceFAZolin 1GM INJ (J0690) As Ordered ONE; +oxyBUTYnin 5 MG TAB PO ONE
--- NOTE | 2017-01-16 14:31 | REPKIM ---
CLINICAL HISTORY: A large staghorn calculus involving the left kidney and hydronephrosis has a nephrostomy urinary diversion tube. The referring urology service has asked conversion of PCN to nephroureteral catheter (stent) placement for preop percutaneous nephrolithotripsy urology procedure. Other medical problems include breast ca with ongoing chemotherapy. PROCEDURE PERFORMED: 1. Nephrostogram 2. Conversion of Nephrostomy Drainage Catheter to Nephroureteral Drainage Catheter (Stent) INTERVENTIONALIST: Delmi Salomon MD CONSENT: The risks, benefits and alternatives to the procedure were explained to the patient and informed written consent was obtained. MEDICATIONS: Local Lidocaine and Fentanyl 75 mcg IV. Independent trained observer was present during the entire duration of the procedure for monitoring. CONTRAST: 15 mL Isovue 300 EBL: less than 5 mL FLUORO TIME: 3 minutes DEVICE USED: 8.5F 26-cm Nephroureteral catheter Lot #[id number] PROCEDURE/FINDINGS: The patient was brought to the interventional radiology suite and placed in the prone position, left flank and indwelling catheter prepped and draped in the usual sterile fashion. Time out procedure was performed. Patient received Cipro antibiotics. Contrast was injected through the existing 8.5-Greek nephrostomy catheter and a nephrostogram was performed. This showed the catheter is patent with a satisfactory course and position. Its tip is located in the renal pelvis. The collecting system system has decompressed. A large kidney stone noted in the renal pelvis. A guidewire was advanced through the nephrostomy tube and advanced under fluoroscopy into the renal pelvis. The existing indwelling catheter was unlocked and removed over the guidewire. Then a 6- Greek sheath was advanced over the guidewire into the renal pelvis. A 5-Greek Kumpe catheter was introduced over a guidewire into the proximal ureter. Then using a hydrophilic guidewire, the catheter-wire combination was advanced into the bladder under fluoroscopy. The wire was then exchanged for a stiff wire. The sheath/catheter was removed. An 8.5-Greek, 26-cm nephroureteral drainage catheter (stent) was introduced over the guidewire. The guidewire was removed and the distal loop of the drainage catheter was formed and locked in the bladder and the proximal loop of the catheter was formed in the renal pelvis. Contrast was injected to ensure that the side holes of the drainage catheter were appropriately positioned. There is free antegrade flow of contrast into the urinary bladder. The drainage catheter (NU stent) was then secured to the skin with 2-0 Prolene suture and covered with a sterile dressing. The drainage catheter was flushed and capped. The patient tolerated the procedure well with no immediate complications. This procedure was performed using fluoroscopy. IMPRESSION: 1. A large staghorn calculus in the renal pelvis. 2. Successful conversion of percutaneous nephrostomy drainage catheter to nephroureteral drainage catheter (stent) as discussed above. The distal loop of the NU formed in the bladder and the proximal loop of the catheter formed in the renal pelvis. Nephrostogram demonstrates free antegrade flow of contrast into the urinary bladder via the stent. This access will be used for subsequent percutaneous nephrolithotripsy urology procedure. cc: YIFAN Mcdowell MD MTDD
== END | disposition home or self-care (01) ==
LOC: M IRPRO 09:33
PROVIDERS: ATTEND Nurse Practitioner Women's Health
DX: N13.2 Hydronephrosis with renal and ureteral calculous obstruction (principal); C50.919 Malignant neoplasm of unspecified site of unspecified female breast; Z79.899 Other long term (current) drug therapy
CPT/HCPCS: 50434; C1769; C1887; C1894; C2625; J3010; Q9967

== ENCOUNTER 2017-01-21 12:29 | Day surgery (SDC) | payer MEDICARE ==
[~2017-01-21] VITALS: Ht 154.9 cm; Wt 50.8 kg
[~2017-01-21 12:29] MED LIST changes: -CIPROFLOXACIN 500 MG TAB As Ordered ONE; -ISOVUE-300 61% 50ML VIAL (Q9967) As Ordered ONE; -LIDOCAINE 2% MDV 20 ML VIAL As Ordered ONE; -SODIUM BICARBONATE 4 % INJ 2.4MEQ 5 ML VIAL (THIS HAS A PRESERVATIVE) As Ordered ONE; -fentaNYL 100 MCG/2 ML INJECTION (J3010) As Ordered ONE; -oxyBUTYnin 5 MG TAB PO ONE
[2017-01-21] MEDS ORDERED: LR 1,000 ML IV ONE (13:30)
[2017-01-21] MEDS ORDERED: LIDOCAINE 1% SDV 5 ML VIAL SQ PRN (13:30)
[2017-01-21] MEDS ORDERED: PERCOCET 5MG/325MG TAB PO ONE (14:00)
[2017-01-21] MEDS ORDERED: ROCURONIUM BROMIDE 50 MG/5 ML VIAL As Ordered ONE (14:34)
[2017-01-21] MEDS ORDERED: PROPOFOL 200 MG/20 ML VIAL As Ordered ONE (14:34)
[2017-01-21] MEDS ORDERED: ONDANSETRON 4MG/2ML VIAL (J2405) As Ordered ONE (14:34)
[2017-01-21] MEDS ORDERED: LIDOCAINE 2% INJ 100 MG/5 ML SDV (FOR ANES.) As Ordered ONE ×2 (14:34→15:33)
[2017-01-21] MEDS ORDERED: dexameTHASONE 4 MG/ML 1ML VIAL (J1100) As Ordered ONE (14:34)
[2017-01-21] MEDS ORDERED: KETOROLAC 60 MG/2 ML VIAL (J1885) As Ordered ONE (14:34)
[2017-01-21] MEDS ORDERED: CONRAY-60 60% 50ML VIAL (Q9961) As Ordered ONE (14:52)
[2017-01-21] MEDS ORDERED: MIDAZOLAM INJ 2 MG/2 ML VIAL (J2250) As Ordered ONE (15:29)
[2017-01-21] MEDS ORDERED: fentaNYL 100 MCG/2 ML INJECTION (J3010) As Ordered ONE (15:29)
[2017-01-21] MEDS ORDERED: SUGAMMADEX SODIUM 500 MG/5 ML VIAL (BRIDION) As Ordered ONE (17:00)
[2017-01-21] MEDS ORDERED: fentaNYL 100 MCG/2 ML INJECTION (J3010) IV PRN (17:45)
[2017-01-21] MEDS ORDERED: ONDANSETRON 4MG/2ML VIAL (J2405) IV PRN ×2 (17:45→18:00)
[2017-01-21] MEDS ORDERED: LR 1,000 ML IV SCH (17:45)
[2017-01-21] MEDS ORDERED: PERCOCET 5MG/325MG TAB PO PRN (17:45)
[2017-01-21] MEDS ORDERED: MORPHINE 4 MG/ML 1ML SYRINGE IV PRN (18:00)
[2017-01-21 18:06] LABS: MEAN CORPUSCULAR HEMOGLOBIN 28.7 pg (27.0-33.0); MEAN CORPUSCULAR HGB CONC 31.8 g/dl (32.0-36.5); MEAN CORPUSCULAR VOLUME 90.1 fl (80.0-96.0); RED CELL DISTRIBUTION WIDTH 14.5 % (11.5-14.5); WHITE BLOOD COUNT 2.6 K/mm3 (4.0-10.0)
[2017-01-21 18:20] LABS: ANION GAP 8 MEQ/L (8-16); BLOOD UREA NITROGEN 15 MG/DL (7-18); CARBON DIOXIDE LEVEL 26 MEQ/L (21-32); CHLORIDE LEVEL 103 MEQ/L (98-107); CREATININE FOR GFR 0.82 MG/DL (0.55-1.02); GLOMERULAR FILTRATION RATE > 60.0 (>39); GLUCOSE, FASTING 98 MG/DL (83-110); POTASSIUM SERUM 4.1 MEQ/L (3.5-5.1); SODIUM LEVEL 137 MEQ/L (136-145)
[2017-01-21 18:59] VITALS: BP 172/67
[2017-01-21 19:30] VITALS: BP 127/59
[2017-01-21] MEDS: KCL 20MEQ IN D5/0.45NS 1000ML 1,000 ML IV SCH (19:42)
[2017-01-21] MEDS: CIPROFLOXACIN 500 MG TAB PO SCH (19:42)
[2017-01-21] MEDS: PANTOPRAZOLE 40MG INJ (PROTONIX) (C9113) IV SCH (19:42)
[2017-01-21 20:30] VITALS: BP 123/57
[2017-01-21 21:30] VITALS: BP 126/58
[2017-01-21] MEDS: ACETAMINOPHEN 650MG ER TAB (TYLENOL ARTHRITIS) PO SCH (21:59)
[2017-01-21 22:30] VITALS: BP 125/57
[2017-01-21 23:30] VITALS: BP 124/60
[2017-01-21] MEDS: oxyCODONE 5MG TAB PO PRN (23:38)
[2017-01-22 03:30] VITALS: BP 128/61
[2017-01-22] MEDS: KCL 20MEQ IN D5/0.45NS 1000ML 1,000 ML IV SCH (05:03)
[2017-01-22] MEDS: ACETAMINOPHEN 650MG ER TAB (TYLENOL ARTHRITIS) PO SCH ×2 (05:03→13:38)
[2017-01-22] MEDS: CIPROFLOXACIN 500 MG TAB PO SCH ×2 (05:03→18:38)
[2017-01-22 06:00] VITALS: BP 120/64
[2017-01-22 06:49] LABS: MEAN CORPUSCULAR HEMOGLOBIN 28.8 pg (27.0-33.0); MEAN CORPUSCULAR HGB CONC 32.6 g/dl (32.0-36.5); MEAN CORPUSCULAR VOLUME 88.5 fl (80.0-96.0); RED CELL DISTRIBUTION WIDTH 14.5 % (11.5-14.5); WHITE BLOOD COUNT 5.7 K/mm3 (4.0-10.0)
[2017-01-22 06:59] LABS: ANION GAP 7 MEQ/L (8-16); BLOOD UREA NITROGEN 11 MG/DL (7-18); CALCIUM LEVEL 8.7 MG/DL (8.8-10.2); CARBON DIOXIDE LEVEL 26 MEQ/L (21-32); CHLORIDE LEVEL 105 MEQ/L (98-107); CREATININE FOR GFR 0.81 MG/DL (0.55-1.02); GLOMERULAR FILTRATION RATE > 60.0 (>39); GLUCOSE, FASTING 95 MG/DL (83-110); POTASSIUM SERUM 4.4 MEQ/L (3.5-5.1); SODIUM LEVEL 138 MEQ/L (136-145)
[2017-01-22] MEDS: oxyCODONE 5MG TAB PO PRN ×2 (07:28→13:39)
--- NOTE | 2017-01-22 08:05 | RO ---
DATE OF PROCEDURE: 01/21/2017 PREOPERATIVE DIAGNOSIS: Left renal stone. POSTOPERATIVE DIAGNOSIS: Left renal stone. FINDINGS: 3 cm left lower pole kidney stone. SURGERY PERFORMED: Left percutaneous nephrolithotripsy plus anterior double J stent placement. SURGEON: Elia Pierson MD HABILITATION WORKER: None. ANESTHESIA: General. COMPLICATIONS: None. ESTIMATED BLOOD LOSS: N/A. HISTORY OF PRESENT ILLNESS: 71-year-old female patient with a 2.5 to 3 cm left kidney stone. The patient has a nephroureteral stent placed by interventional radiology. She has consented for a left percutaneous nephrolithotripsy plus anterior double J stent placement, #6 Mexican Silver Cook. DESCRIPTION OF PROCEDURE: With the patient under general anesthesia with a Green catheter draining the bladder, #16 Mexican with a 10 mL balloon to gravity, the patient was positioned in a prone position. We then proceeded to prep and drape the area of concern, which included the entire left flank. We then cut the nephroureteral stent and passed a superstiff Guidewire down to the bladder and took the nephroureteral stent out. We did an incision at the level of the skin at the entrance of the nephrostomy tube for about 2 cm in length and following the Guidewire, a double lumen catheter up to the proximal ureter. We then loaded another Guidewire down to the bladder and then took the double catheter out. Following one of the superstiff Guidewires, we placed a balloon dilator and dilated the nephrostomy tract to 30 Charriere and placed an Amplatz sheath through the balloon, and then deflated the balloon and left the Amplatz sheath in the kidney. Through this access, we actively introduced a nephroscope under videoendoscopic guidance so we could actively visualize the entire renal pelvis as well as the two Guidewires and in the lower pole we could visualize the stone. We grabbed the CyberWand and then nephrolithotripsied the stone. We then proceeded to grab the Perc NCircle and grabbed the stone, the largest pieces out of the body of the patient and took it out. We then passed a flexible ureteroscope and did up and down ureteroscopy in an antegrade fashion to actively see there was no stones in the ureter. Once we cleared the ureter with a ureteroscope, we took the ureteroscope out and grabbed the nephroscope once again. There were no stones left behind in the pelvis or in the collecting system. At the moment in time, we actively took the nephroscope out and passed a double J stent following the superstiff Guidewire down to the bladder. Once it was in good position, we took the Guidewire out. We could see the curl in the kidney and the curl in the bladder. We then proceeded to take the Amplatz sheath and pass a Councill tip #18 Mexican into the renal pelvis and take the Guidewire out. We then did an antegrade nephrostogram and there was no extravasation and placed a #3-0 silk stitch from the kidney to the Councill tip to stabilize the Councill tip catheter. We then placed the Green catheter to gravity. PLAN: The patient will be pass through recovery and then to the floor. Tomorrow she will have a CT scan of the abdomen and pelvis, noncontrast. If there is no stones, we will actively discontinue the nephrostomy tube and the Green catheter and she will come back to followup at [facility] [employer] in one week to remove the left ureteral stent.
[2017-01-22] MEDS: PANTOPRAZOLE 40MG INJ (PROTONIX) (C9113) IV SCH (08:30)
--- NOTE | 2017-01-22 09:25 | REP ---
C-ARM VIEWS ABDOMEN: Three C-arm views of the abdomen are performed. Right nephrostomy catheter is seen. Contrast is injected into the right pelvicalyceal system and the ureter. Right ureteral stent is placed with the proximal end coiled in the inferior right renal pelvis and the distal end coiled in the urinary bladder. 1 minute 30 seconds fluoroscopy time utilized. Signed by Steven Chatman MD 01/22/2017 07:09 P
[2017-01-22 10:00] VITALS: BP 121/60
--- NOTE | 2017-01-22 10:43 | REP ---
REASON: History of left renal calculi. COMPARISON: 12/08/2016, a contrast-enhanced exam. Lung bases are unchanged showing mild chronic basilar fibrotic changes. Limited evaluation of the solid intra-abdominal organs and gallbladder shows no significant changes. There are no right-sided nephroliths, and there is no right-sided hydronephrosis. There are no right-sided ureteroliths. There is a percutaneous left-sided ureteral stent since the last exam. The distal portion abuts an inflated Rgeen balloon catheter within the urinary bladder. There is no hydronephrosis. The calculus seen previously in the left ureteropelvic junction is not visualized. There is no change in appearance of the pancreas or adrenal glands. There is no change in appearance of the abdominal aorta or para-aortic regions, although seen in a limited fashion due to the lack of intravenous contrast. There is no significant change in appearance of the bowel loops or their mesenteries. There are a few gas-filled nondilated small bowel loops throughout the abdomen and pelvis, which is nonspecific. No free fluid or free air is seen in the abdomen or pelvis. There is no significant change in appearance of the osseous structures. IMPRESSION: Status post percutaneous left-sided ureteral stent, as described above. No evidence of acute disease, as described above. Signed by Shabbir Veliz DO 01/22/2017 10:48 A
[2017-01-22 14:00] VITALS: BP 123/73
[2017-01-22] MEDS ORDERED: PERCOCET PO (18:04)
--- NOTE | 2017-01-22 21:46 | DSES ---
DATE OF ADMISSION: 01/21/2017 DATE OF DISCHARGE: 01/22/2017 ADMISSION DIAGNOSIS: Left renal stone. DISCHARGE DIAGNOSIS: Left renal stone. SURGERY PERFORMED: Left percutaneous nephrolithotripsy plus antegrade double J stent placement. ADMITTING SURGEON: Elia Pierson MD DISCHARGE SURGEON: Elia Pierson MD COMPLICATIONS: None. ESTIMATED BLOOD LOSS (EBL): Not applicable (N/A). HISTORY OF PRESENT ILLNESS: This is a 71-year-old female patient that has a left renal stone and had a nephroureteral stent placed by interventional radiology. For this reason, she was consented for a left percutaneous nephrolithotripsy which was carried out on 01/21/2017. After this procedure she was admitted. HOSPITALIZATION COURSE: The patient did very well and by postoperative day #1 she was tolerating a regular diet, we took out the Green catheter and she voided 300 mL of clear urine. Her nephrostomy tube was draining clear urine also and for this reason we discontinued it and placed a urostomy bag. The patient will be discharged home with pain medications, antibiotic ciprofloxacin 250 mg one tablet by mouth twice a day for 10 days. She will followup with [facility] in 2 weeks for removal of double J stent. There were no complications of this surgery or hospitalization.
== END 2017-01-22 19:00 | disposition home or self-care (01) ==
LOC: UNDOADMIN 12:29 → M OR 12:29 → M SDC 12:29 → EDSTATUS 14:00 → M MS5PR 18:40 → M OR 18:40 → M SDC 01-22 19:00 → UNDODISIN 01-22 19:00
PROVIDERS: ATTEND Urology
DX: N20.0 Calculus of kidney (principal); C50.912 Malignant neoplasm of unspecified site of left female breast; D64.9 Anemia, unspecified; Z87.440 Personal history of urinary (tract) infections; Z87.891 Personal history of nicotine dependence
CPT/HCPCS: 36415; 50081; 74176; 76000; 80048; 82360; 85027; 86850; 86900; 86901; 88300; 96374; 96376; C1726; C1769; C1887; C2617; C9113; J0690; J1100; J1885; J2250; J2405; J3010; Q9961

== ENCOUNTER → 2017-02-13 | Outpatient (REF) | payer MEDICARE | LOC: M SMT 12:04 | PROVIDERS: ATTEND Urology | DX: N20.0 Calculus of kidney (principal) ==

== ENCOUNTER → 2017-02-23 | Outpatient (CLI) | payer MEDICARE ==
[~2017-02-23] MED LIST changes: -ACET65TA PO; -AUGM875T27 PO; +AUGM875T28 PO; +CEPH500T PO; +CLAR10CA3 PO; +LEVA1TAB2 PO; -LEVA500T PO; +MAPA325T2 PO; +MAPA325T3 PO; +NYST50SS SS; +OXYC1TAB23 PO; +TYLE650T35 PO; +physical therapy
--- NOTE | 2017-02-23 12:16 | REP ---
Clinical: Cough. Technique: PA and lateral. Comparison: 01/23/2009. Findings: 5 cm mass overlies the left mid lung zone. Mediastinum and cardiac silhouette are normal. Hfiamn-J-Kczi with tip in the SVC. Remainder of lung jose demonstrate chronic changes without further consolidation, effusion, or pneumothorax. Skeletal structures are stable. Impression: 5 cm mass overlies the left mid lung zone. Signed by Luis M Vitale MD 02/23/2017 12:07 P
== END ==
LOC: M ADAMS 11:50
PROVIDERS: ATTEND Physician Assistant Medical
DX: R05 Cough (principal)

== ENCOUNTER → 2017-02-25 | Outpatient (REF) | payer MEDICARE | LOC: M LAB REF 17:01 | PROVIDERS: ATTEND Internal Medicine Medical Oncology | DX: D64.9 Anemia, unspecified (principal) ==

== ENCOUNTER 2017-02-27 06:16 | Outpatient (CLI) | payer MEDICARE ==
[~2017-02-27 06:16] MED LIST changes: -CEPH500T PO; -CLAR10CA3 PO; -MAPA325T2 PO; -NYST50SS SS; -OXYC1TAB23 PO; -TYLE650T35 PO; -physical therapy
[2017-02-27] MEDS ORDERED: diphenhydrAMINE 25 MG CAP PO SCH (07:00)
[2017-02-27] MEDS ORDERED: ACETAMINOPHEN TAB 650MG DOSE (2X325MG) PO SCH (07:01)
[2017-02-27] MEDS ORDERED: SODIUM CHLORIDE 0.9% INJ 10 ML SYR IV SCH (09:00)
[2017-05-06] MEDS ORDERED: TYLE650T35 PO (14:13)
== END 2017-02-27 11:20 | disposition home or self-care (01) ==
LOC: M INFU 06:16
PROVIDERS: ATTEND Internal Medicine Medical Oncology
DX: D64.9 Anemia, unspecified (principal); Z79.891 Long term (current) use of opiate analgesic; Z79.899 Other long term (current) drug therapy
CPT/HCPCS: 36430; P9016

== ENCOUNTER 2017-03-22 09:39 | Inpatient (IN) | payer MEDICARE ==
[~2017-03-22] VITALS: Ht 154.9 cm; Wt 48.3 kg
[2017-03-22] MEDS ORDERED: CLAR10CA3 PO (09:47)
[2017-03-22] MEDS ORDERED: NS 1,000 ML IV ONE ×2 (10:00→11:30)
[2017-03-22] MEDS ORDERED: PERCOCET 5MG/325MG TAB PO ONE (10:00)
[2017-03-22] MEDS ORDERED: ONDANSETRON 4 MG ORAL DISINTEGRATING TAB (S0181) PO ONE (10:00)
[2017-03-22 11:00] LABS: ADD MANUAL DIFFER YES; MEAN CORPUSCULAR HEMOGLOBIN 30.5 pg (27.0-33.0); MEAN CORPUSCULAR HGB CONC 33.5 g/dl (32.0-36.5); MEAN CORPUSCULAR VOLUME 91.1 fl (80.0-96.0); PLATELET COUNT, AUTOMATED 188 k/mm3 (150-450); RED CELL DISTRIBUTION WIDTH 18.1 % (11.5-14.5)
[2017-03-22 11:01] LABS: DIFF SLIDE NUMBER 83
[2017-03-22 11:02] LABS: ALBUMIN/GLOBULIN RATIO 0.81 (1.00-1.93); ALKALINE PHOSPHATASE 272 U/L (45-117); ALT/SGPT 21 U/L (12-78); AMYLASE 59 U/L (25-115); ANION GAP 9 MEQ/L (8-16); AST/SGOT 16 U/L (15-37); BILIRUBIN,DIRECT < 0.1 MG/DL (0.0-0.2); BILIRUBIN,TOTAL 0.2 MG/DL (0.2-1.0); BLOOD UREA NITROGEN 16 MG/DL (7-18); CARBON DIOXIDE LEVEL 27 MEQ/L (21-32); CHLORIDE LEVEL 104 MEQ/L (98-107); CREATININE FOR GFR 0.74 MG/DL (0.55-1.02); GLOMERULAR FILTRATION RATE > 60.0 (>39); GLUCOSE, FASTING 95 MG/DL (83-110); POTASSIUM SERUM 3.8 MEQ/L (3.5-5.1); SODIUM LEVEL 140 MEQ/L (136-145); TOTAL PROTEIN 6.7 GM/DL (6.4-8.2)
[2017-03-22 11:07] LABS: WHITE BLOOD COUNT 27.9 K/mm3 (4.0-10.0)
[2017-03-22 11:34] LABS: ANISOCYTOSIS 1+; BANDS 3 % (< 11); BASOPHILS 1 % (0-4); POLYCHROMASIA 1+; TOXIC GRANULATION 1+
[2017-03-22] MEDS ORDERED: NS 500 ML IV ONE (11:45)
--- NOTE | 2017-03-22 11:50 | REP ---
REASON: Pain. COMPARISON: 01/22/2017 Subsegmental atelectatic changes are seen in the right lung base. There are no pleural or pericardial effusions. Left-sided nephrostomy/ureteral stent has been removed. There are chronic changes seen involving the left kidney status quo. There are multiple nonobstructing left nephroliths. There are no ureteroliths. There is no hydronephrosis. The right kidney is unchanged remaining within normal limits. Limited evaluation of the solid intra-abdominal organs and gallbladder show no abnormalities or changes from the prior exam. Limited evaluation of the bowel loops and their mesenteries show no abnormalities or changes from the prior exam. There is no free fluid or free air in the abdomen or pelvis. There are bilateral pelvic phleboliths status quo. There are no urinary bladder calcifications. Limited evaluation of the abdominal aorta and para-aortic regions show no changes. There is calcific atherosclerotic change present. There is no change in the osseous structures. IMPRESSION: No acute disease with findings as described above. Signed by Shabbir Veliz DO 03/22/2017 12:42 P
[2017-03-22] MEDS ORDERED: ACETAMINOPHEN TAB 650MG DOSE (2X325MG) PO PRN (12:45)
[2017-03-22] MEDS ORDERED: LORATADINE 10 MG TAB PO PRN (12:45)
[2017-03-22] MEDS ORDERED: PIPERACILLIN/TAZOBACTAM SOD 4.5 GM in D5W MINI-BAG PLUS 50 ML IV ONE (13:00)
[2017-03-22] MEDS ORDERED: OXYC1TAB23 PO (13:03)
[2017-03-22] MEDS ORDERED: NYST50SS SS (13:03)
[2017-03-22] MEDS ORDERED: MAPA325T2 PO (13:03)
[2017-03-22 14:30] VITALS: BP 124/58
[2017-03-22] MEDS: PERCOCET 5MG/325MG TAB PO PRN ×2 (14:59→22:55)
[2017-03-22 15:10] LABS: ADD MANUAL DIFFER YES; MEAN CORPUSCULAR HGB CONC 32.8 g/dl (32.0-36.5); MEAN CORPUSCULAR VOLUME 91.5 fl (80.0-96.0); PLATELET COUNT, AUTOMATED 182 k/mm3 (150-450); RED CELL DISTRIBUTION WIDTH 17.9 % (11.5-14.5); WHITE BLOOD COUNT 25.6 K/mm3 (4.0-10.0)
[2017-03-22 15:18] LABS: ALBUMIN 2.6 GM/DL (3.2-5.2); ALBUMIN/GLOBULIN RATIO 0.87 (1.00-1.93); ALKALINE PHOSPHATASE 227 U/L (45-117); ALT/SGPT 19 U/L (12-78); ANION GAP 9 MEQ/L (8-16); AST/SGOT 15 U/L (15-37); BILIRUBIN,TOTAL 0.3 MG/DL (0.2-1.0); BLOOD UREA NITROGEN 12 MG/DL (7-18); CALCIUM LEVEL 7.7 MG/DL (8.8-10.2); CARBON DIOXIDE LEVEL 27 MEQ/L (21-32); CHLORIDE LEVEL 111 MEQ/L (98-107); CREATININE FOR GFR 0.76 MG/DL (0.55-1.02); GLOMERULAR FILTRATION RATE > 60.0 (>39); GLUCOSE, FASTING 116 MG/DL (83-110); POTASSIUM SERUM 4.2 MEQ/L (3.5-5.1); SODIUM LEVEL 147 MEQ/L (136-145); TOTAL PROTEIN 5.6 GM/DL (6.4-8.2)
[2017-03-22 15:34] LABS: BANDS 3 % (< 11); BASOPHILS 1 % (0-4)
[2017-03-22 15:35] LABS: ANISOCYTOSIS 1+; DOHLE BODIES 1+; TOXIC GRANULATION 1+
[2017-03-22 15:36] LABS: TEAR DROP CELLS 2+
[2017-03-22 16:00] VITALS: BP 120/60
[2017-03-22] MEDS ORDERED: SODIUM CHLORIDE 0.9% 1000 ML IV ONE (16:00)
--- NOTE | 2017-03-22 18:14 | HPEPDOC ---
General Date of Admission Mar 22, 2017 at 12:56 Primary Care Physician: ERIKA MARTIN PA-C Attending Physician: TRUMAN PRINGLE DO Chief Complaint The patient is a 71-year-old female admitted with a reason for visit of Infected Wound, Leukocytosis. Source: Patient Exam Limitations: No limitations History of Present Illness Patient is a 71 year old patient of Erika Reddy who is being treated for L breast cancer with chemotherapy by Dr. Kang, who presents to the ED with L flank/low back pain The patient has a history of renal stones, and thought that she had a new stone, so she presented for evaluation. She was treated with Neulasta 5 days ago, and states that recently her chemotherapy changed from adriamycin and cytoxan to a new, unknown medication. In the ED she was not found to have any stones, but it was noted that the malignant mass on her left breast had a foul odor and purulent appearing discharge. Her WBCs were 27.9 and her lactic acid was 2.4 Upon questioning, she states that about 2 weeks ago oncology treated her breast mass for an infection with Levaquin for about a week. Home Medications Scheduled PRN Acetaminophen (Mapap) 325 Mg Tab, 650 MG PO Q6H PRN for PAIN, (Reported) Loratadine (Claritin) 10 Mg Cap, 10 MG PO for PAIN, (Reported) TAKES FOR SIDE EFFECTS OF CHEMO Nystatin (Nystatin Oral Susp) 5 Ml Susp, 5 ML SS Q6H PRN for THRUSH, (Reported) Oxycodone/Acetaminophen (Oxycodone/Acetaminophen 5-325 mg) 1 Tab Tab, 1 TAB PO Q6H PRN for PAIN, (Reported) Allergies Coded Allergies: No Known Allergies (Verified , 01/21/17) Past Medical History Medical History L breast cancer infiltrating ductal carcinoma with fungating mass nephrolithiasis LV diastolic dysfunction Surgical History hysterectomy renal stone related: nephrostomy tube, ESWL, surgical extraction Social History * Smoker: Denies, less than 1 pack/day (states occasionally smokes) Alcohol: Denies Drugs: denies Lives alone. She states she is capable of doing all of her own chores. She is a retired book-keeper. Review of Symptoms Constitutional: Reports: Fatigue, Weight Loss, Denies: Chills, Fever, Night Sweats ENT: Reports: Head Aches Skin: Reports: Lesions, Denies: Rash Pulmonary: Denies: Dyspnea, Cough Cardiovascular: Denies: Chest Pain Gastrointestinal: Reports: Constipation, Denies: Nausea, Vomiting, Abdominal Pain, Diarrhea Genitourinary: Denies: Dysuria, Hematuria Musculoskeletal: Reports: Back Pain Psych: Reports: Mood Normal Physical Examination General Exam: Positive: Alert, Cooperative, No Acute Distress, Other (appears chronically ill) Eye Exam: Positive: PERRLA, Conjunctiva & lids normal, EOMI ENT Exam: Positive: Atraumatic, Mucous membr. moist/pink, Pharynx Normal Neck Exam: Positive: Supple, Negative: JVD Chest Exam: Positive: Clear to auscultation, Normal air movement Heart Exam: Positive: Rate Normal, Regular Rhythm, Normal S1, Normal S2, Negative: Murmurs, Rubs Abdomen Exam: Positive: Normal bowel sounds, Soft, Negative: Tenderness Extremity Exam: Negative: Edema Skin Exam: Positive: Lesion (cavitated lesion L breast with foul smelling, thick yellow discharge) Psych Exam: Positive: Mental status NL, Mood NL Vital Signs Vital Signs Date Time Temp Pulse Resp B/P (MAP) Pulse Ox O2 Delivery O2 Flow Rate FiO2 03/22/17 14:59 18 Room Air 03/22/17 14:24 98.2 80 97 03/22/17 14:21 94/53 (67) Laboratory Data Labs 24H Laboratory Tests 2 03/22/17 10:14: Urine Appearance CLOUDYH, Urine Color YELLOW, Urine pH 5.0, Urine Specific [place] 1.018, Urine Protein NEGATIVE, Urine Glucose (UA) NEGATIVE, Urine Ketones TRACEH, Urine Urobilinogen 0.2, Urine Bilirubin NEGATIVE, Urine Leukocyte Esterase TRACEH, Urine Blood NEGATIVE, Urine Nitrite NEGATIVE, Urine WBC (Auto) 8H, Urine RBC (Auto) 3, Urine Hyaline Casts (Auto) 0, Urine Bacteria (Auto) NEGATIVE, Urine Squamous Epithelial Cells 21, Urine Uric Acid Crystals ( Auto) SMALL, Urine Mucus (Auto) SMALL, Urine Sperm (Auto) 03/22/17 10:31: Neutrophils 87H, Band Neutrophils 3, Lymphocytes (Manual) 6L, Monocytes (Manual ) 1, Basophils (Manual) 1, Metamyelocytes 1H, Myelocytes 1H, Toxic Granulation 1 +, Platelet Estimate NORMAL, Polychromasia 1+, Basophilic Stippling 1+, Anisocytosis 1+, Macrocytosis , Anion Gap 9, Glomerular Filtration Rate > 60.0, Lactic Acid Level 2.4*H, Calcium Level 9.0, Aspartate Amino Transf (AST/SGOT) 16 , Alanine Aminotransferase (ALT/SGPT) 21, Alkaline Phosphatase 272H, Total Bilirubin 0.2, Direct Bilirubin < 0.1, Total Protein 6.7, Albumin 3.0L, Albumin/ Globulin Ratio 0.81L, Amylase Level 59, Lipase 118 03/22/17 14:47: Neutrophils 87H, Band Neutrophils 3, Lymphocytes (Manual) 4L, Monocytes (Manual ) 2, Basophils (Manual) 1, Metamyelocytes 1H, Myelocytes 1H, Toxic Granulation 1 +, Platelet Estimate NORMAL, Basophilic Stippling 1+, Anisocytosis 1+, Anion Gap 9, Glomerular Filtration Rate > 60.0, Calcium Level 7.7L, Aspartate Amino Transf (AST/SGOT) 15, Alanine Aminotransferase (ALT/SGPT) 19, Alkaline Phosphatase 227H, Total Bilirubin 0.3, Total Protein 5.6L, Albumin 2.6L, Albumin /Globulin Ratio 0.87L, Atypical Lymphocytes 1, Dohle Bodies 1+, Hypochromasia , Tear Drop Cells 2+, Lactic Acid Followup at 4 Hours 2.5*H, Blood Urea Nitrogen 12, Creatinine 0.76, Sodium Level 147H, Potassium Level 4.2, Chloride Level 111H , Carbon Dioxide Level 27 CBC/BMP Laboratory Tests 03/22/17 10:31 Red Blood Count 3.42 L, Mean Corpuscular Volume 91.1, Mean Corpuscular Hemoglobin 30.5, Mean Corpuscular Hemoglobin Concent 33.5, Red Cell Distribution Width 18.1 H 03/22/17 14:47 Red Blood Count 3.13 L, Mean Corpuscular Volume 91.5, Mean Corpuscular Hemoglobin 30.0, Mean Corpuscular Hemoglobin Concent 32.8, Red Cell Distribution Width 17.9 H, Calcium Level 7.7 L, Aspartate Amino Transf (AST/SGOT ) 15, Alanine Aminotransferase (ALT/SGPT) 19, Alkaline Phosphatase 227 H, Total Bilirubin 0.3, Total Protein 5.6 L, Albumin 2.6 L Microbiology Microbiology 03/22/17 Blood Culture, Received Pending 03/22/17 Blood Culture, Received Pending 03/22/17 Urine Culture, Received Pending 03/22/17 Wound Culture, Received Pending Problems (1) Infiltrating ductal carcinoma of left breast Problem Text: Patient follows now with oncology. PT home safety eval ordered. She has lost weight since her diagnosis, but believes that her weight has now stabilized. (2) Infected wound Status: Acute Problem Text: Wound care and Zosyn ordered. We will monitor for signs of worsening infection. (3) Leukocytosis Status: Acute Problem Specific Plan: Repeat Tests Problem Text: Likely secondary to a combination of wound infection and recent Neulasta administration. We will see how she responds to antibiotics. Patient does not look acutely ill enough that I believe that most of her leukocytosis is secondary to infection. (4) Elevated lactic acid level Status: Acute Problem Text: Secondary to infection vs lysis of tumor. Patient bolused with IV fluids. Recheck lactic acid level ordered. Plan / VTE VTE Prophylaxis Ordered?: Yes TRUMAN PRINGLE DO Mar 22, 2017 18:14
[2017-03-22] MEDS ORDERED: SODIUM CHLORIDE 0.9% INJ 10 ML SYR IV PRN (19:30)
[2017-03-22 20:18] VITALS: BP 123/56
[2017-03-22] MEDS: PIPERACILLIN/TAZOBACTAM SOD 3.375 GM in D5W MINI-BAG PLUS 50 ML IV SCH (20:37)
[2017-03-22] MEDS: HEPARIN SOD (PORCINE) 5000 UNITS/ML VIAL SQ SCH (20:37)
[2017-03-22 23:58] VITALS: BP 116/57
[2017-03-23] MEDS ORDERED: NS 500 ML IV ONE
[2017-03-23] MEDS: PIPERACILLIN/TAZOBACTAM SOD 3.375 GM in D5W MINI-BAG PLUS 50 ML IV SCH ×4 (02:28→19:53)
[2017-03-23 04:45] VITALS: BP 105/51
[2017-03-23 08:00] VITALS: BP 131/63
[2017-03-23] MEDS: HEPARIN SOD (PORCINE) 5000 UNITS/ML VIAL SQ SCH ×2 (08:56→20:47)
[2017-03-23] MEDS: PERCOCET 5MG/325MG TAB PO PRN ×2 (08:57→19:51)
[2017-03-23] MEDS: SODIUM CHLORIDE 0.9% INJ 10 ML SYR IV SCH (08:58)
--- NOTE | 2017-03-23 09:24 | IPNPDOC ---
Subjective Date Seen The patient was seen on 03/23/17. Subjective Chief Complaint/HPI The patient is a 71-year-old female admitted with a reason for visit of Infected Wound, Leukocytosis. Events since last encounter Pt is feeling well, she is very eager to go home. Her back pain (reason for presentation) has resolved. She denies an increase in drainage assoc with her L breast wound. She also denies increase in pain. She reports that is is smaller in size since starting chemotherapy. Her grandson Andrew is at bedside. General: Denies: Fatigue Constitutional: Denies: Chills, Fever Pulmonary: Denies: Dyspnea, Cough Cardiovascular: Denies: Chest Pain, Palpitations Gastrointestinal: Denies: Nausea, Vomiting, Diarrhea Psych: Reports: Mood Normal Objective Physical Examination General Exam: Positive: Alert, Cooperative, No Acute Distress, Other (appears chronically ill) ENT Exam: Positive: Mucous membr. moist/pink Neck Exam: Positive: Supple, Negative: JVD Chest Exam: Positive: Clear to auscultation, Normal air movement Heart Exam: Positive: Rate Normal, Regular Rhythm, Normal S1, Normal S2, Negative: Murmurs, Rubs Abdomen Exam: Positive: Normal bowel sounds, Soft, Negative: Tenderness Extremity Exam: Negative: Edema Skin Exam: Positive: Lesion (cavitated lesion L breast with foul smelling, thick yellow discharge - d/c mostly noted from the later side of the lesion) Psych Exam: Positive: Mental status NL, Mood NL Assessment /Plan Problems (1) Infected wound Status: Acute Problem Text: Zosyn D2-favor dc in AM on po abx P WCX results 03/23 WBC 29.8 (03/22 27.9) and lactic acid remain elevated, Tm 99.0 03/23 1200 ( but Neulasta received 03/17 from [facility] (so appropriate to be peaking now, likely contributing to this) Clinically the patient appears quite well. 03/23/17 CT chest: Extensive ulcerating mass (6 x 8 x 2 cm vertical-similar to 12/08/16 in size) The left breast with the worsening skin edema and subcutaneous air and into the breast tissue. 03/22/17 CT AP: NAD 03/22 BCX - x 2 03/22 WCX P 03/22 UCX NGCS (UA trace LE/-bact) (2) Infiltrating ductal carcinoma of left breast Problem Text: Patient follows with oncology, currently receiving Chemo, with plan for surgical intervention after shrinking the lesion, Dr Hernandez followed her as well. PT home safety eval ordered. She has lost weight since her diagnosis, but believes that her weight has now stabilized. (3) Leukocytosis Status: Acute Problem Specific Plan: Repeat Tests Problem Text: Likely secondary to a combination of wound infection and recent Neulasta administration. We will see how she responds to antibiotics. Patient does not look acutely ill enough that I believe that most of her leukocytosis is secondary to infection. (4) Elevated lactic acid level Status: Acute Problem Text: Secondary to infection vs lysis of tumor. Patient bolused with IV fluids. Recheck lactic acid level ordered. Plan/VTE VTE Prophylaxis Ordered?: Yes VS, I&O, 24H, Fishbone Vital Signs/I&O Vital Signs Date Time Temp Pulse Resp B/P (MAP) Pulse Ox O2 Delivery O2 Flow Rate FiO2 03/23/17 08:57 18 03/23/17 08:00 97.6 75 131/63 (85) 95 Room Air I&O- Last 24 Hours up to 6 AM 03/23/17 05:59 Intake Total 3360 ml Output Total 1200 ml Balance 2160 ml Laboratory Data 24H LABS Laboratory Tests 2 03/22/17 10:14: Urine Appearance CLOUDYH, Urine Color YELLOW, Urine pH 5.0, Urine Specific [place] 1.018, Urine Protein NEGATIVE, Urine Glucose (UA) NEGATIVE, Urine Ketones TRACEH, Urine Urobilinogen 0.2, Urine Bilirubin NEGATIVE, Urine Leukocyte Esterase TRACEH, Urine Blood NEGATIVE, Urine Nitrite NEGATIVE, Urine WBC (Auto) 8H, Urine RBC (Auto) 3, Urine Hyaline Casts (Auto) 0, Urine Bacteria (Auto) NEGATIVE, Urine Squamous Epithelial Cells 21, Urine Uric Acid Crystals ( Auto) SMALL, Urine Mucus (Auto) SMALL, Urine Sperm (Auto) 03/22/17 10:31: Neutrophils 87H, Band Neutrophils 3, Lymphocytes (Manual) 6L, Monocytes (Manual ) 1, Basophils (Manual) 1, Metamyelocytes 1H, Myelocytes 1H, Toxic Granulation 1 +, Platelet Estimate NORMAL, Polychromasia 1+, Basophilic Stippling 1+, Anisocytosis 1+, Macrocytosis , Anion Gap 9, Glomerular Filtration Rate > 60.0, Lactic Acid Level 2.4*H, Calcium Level 9.0, Aspartate Amino Transf (AST/SGOT) 16 , Alanine Aminotransferase (ALT/SGPT) 21, Alkaline Phosphatase 272H, Total Bilirubin 0.2, Direct Bilirubin < 0.1, Total Protein 6.7, Albumin 3.0L, Albumin/ Globulin Ratio 0.81L, Amylase Level 59, Lipase 118 03/22/17 14:47: Neutrophils 87H, Band Neutrophils 3, Lymphocytes (Manual) 4L, Monocytes (Manual ) 2, Basophils (Manual) 1, Metamyelocytes 1H, Myelocytes 1H, Toxic Granulation 1 +, Platelet Estimate NORMAL, Basophilic Stippling 1+, Anisocytosis 1+, Anion Gap 9, Glomerular Filtration Rate > 60.0, Calcium Level 7.7L, Aspartate Amino Transf (AST/SGOT) 15, Alanine Aminotransferase (ALT/SGPT) 19, Alkaline Phosphatase 227H, Total Bilirubin 0.3, Total Protein 5.6L, Albumin 2.6L, Albumin /Globulin Ratio 0.87L, Atypical Lymphocytes 1, Dohle Bodies 1+, Hypochromasia , Tear Drop Cells 2+, Lactic Acid Followup at 4 Hours 2.5*H, Blood Urea Nitrogen 12, Creatinine 0.76, Sodium Level 147H, Potassium Level 4.2, Chloride Level 111H , Carbon Dioxide Level 27 03/22/17 18:25: Lactic Acid Level 2.2*H 03/22/17 22:39: Lactic Acid Followup at 4 Hours 2.8*H CBC/BMP Laboratory Tests 03/22/17 10:31 Red Blood Count 3.42 L, Mean Corpuscular Volume 91.1, Mean Corpuscular Hemoglobin 30.5, Mean Corpuscular Hemoglobin Concent 33.5, Red Cell Distribution Width 18.1 H 03/22/17 14:47 Red Blood Count 3.13 L, Mean Corpuscular Volume 91.5, Mean Corpuscular Hemoglobin 30.0, Mean Corpuscular Hemoglobin Concent 32.8, Red Cell Distribution Width 17.9 H, Calcium Level 7.7 L, Aspartate Amino Transf (AST/SGOT ) 15, Alanine Aminotransferase (ALT/SGPT) 19, Alkaline Phosphatase 227 H, Total Bilirubin 0.3, Total Protein 5.6 L, Albumin 2.6 L Microbiology Microbiology 03/22/17 Blood Culture, Received Pending 03/22/17 Blood Culture, Received Pending 03/22/17 Urine Culture, Received Pending 03/22/17 Wound Culture, Received Pending ZHAO MARTIN PA-C Mar 23, 2017 09:24 Andrew Diane M.D. Mar 23, 2017 15:03
[2017-03-23 11:07] LABS: ADD MANUAL DIFFER YES; MEAN CORPUSCULAR HEMOGLOBIN 30.1 pg (27.0-33.0); MEAN CORPUSCULAR HGB CONC 32.9 g/dl (32.0-36.5); MEAN CORPUSCULAR VOLUME 91.5 fl (80.0-96.0); PLATELET COUNT, AUTOMATED 151 k/mm3 (150-450); RED CELL DISTRIBUTION WIDTH 17.8 % (11.5-14.5); WHITE BLOOD COUNT 29.8 K/mm3 (4.0-10.0)
[2017-03-23 11:13] LABS: ANION GAP 7 MEQ/L (8-16); BLOOD UREA NITROGEN 9 MG/DL (7-18); CALCIUM LEVEL 8.3 MG/DL (8.8-10.2); CARBON DIOXIDE LEVEL 27 MEQ/L (21-32); CHLORIDE LEVEL 109 MEQ/L (98-107); CREATININE FOR GFR 0.69 MG/DL (0.55-1.02); GLOMERULAR FILTRATION RATE > 60.0 (>39); GLUCOSE, FASTING 103 MG/DL (83-110); POTASSIUM SERUM 3.8 MEQ/L (3.5-5.1); SODIUM LEVEL 143 MEQ/L (136-145)
[2017-03-23 12:00] VITALS: BP 124/60
--- NOTE | 2017-03-23 13:06 | REP ---
CT CHEST WITHOUT CONTRAST: 03/23/2017. Clinical history: Breast mass, infection comparison 12/08/2016, CT. Technique. Noncontrast images with coronal and sagittal reconstructions provided. Findings: The lung jose are adequately inflated. There is a triangular-shaped zone of atelectatic or consolidated change in the right lower lobe which is new compared to the previous study. There is no pleural effusion. Minor dependent atelectatic change in both lower lung zones. In the deep sulci. Minor curvilinear scarring in the anterior segment right upper lobe unchanged. No definite nodular some scarring in both apices right greater than left following both or parenchyma stable. Heart is not enlarged and no pericardial thickening or effusion. There is calcifications in its flores but no aneurysm. Calcified right paratracheal nodes are seen. There is no pathologic sized mediastinal or hilar adenopathy right axilla shows no adenopathy. There is left axillary nodes, unchanged from previous study, largest about 1.8 cm previously 1.9 cm. The ulcerated mass in the left breast with wide opening and a thick rind the mass extends in the breast for is 6.3 by 7.7 transverse by a vertical diameter with a thickness of up to 2.6 cm. Skin thickening at and edema, progressive from the previous study. I do not see mass in the right breast. This appearance grossly unchanged. There is an indwelling right jugular catheter now present with tip in the SVC. Upper abdomen shows calcifications in the spleen is not enlarged. Liver shows no focal lesion. Hepatic mass or biliary dilatation. No ascites. That portion of gallbladder, pancreas seen were unremarkable. Upper abdomen shows the hydronephrosis on the previous study in the left kidney nearly completely resolved. Impression: 1. Extensive ulcerating mass. The left breast with the worsening skin edema and subcutaneous air and into the breast tissue. Immature were she is in the treatment cycles of this point the radiation change very early or progressive plantar change in the breast. 2. Axillary lymphadenopathy on the left with the right mediastinum, hilum and axilla intact. 3. Irregular shaped right lower lobe atelectasis without pleural effusion or acute infiltrate. No definite mass or nodule in the lungs. 4. Clearing of the left hydronephrosis since the previous study Signed by Jose Barnes MD 03/23/2017 12:58 P
[2017-03-23 16:00] VITALS: BP 128/60
[2017-03-23 20:00] VITALS: BP 135/61
[2017-03-24] VITALS: BP 135/61
[2017-03-24 04:00] VITALS: BP 128/60
[2017-03-24] MEDS: PIPERACILLIN/TAZOBACTAM SOD 3.375 GM in D5W MINI-BAG PLUS 50 ML IV SCH ×2 (04:09→08:38)
[2017-03-24 05:39] LABS: ADD MANUAL DIFFER YES; DIFF SLIDE NUMBER 74; MEAN CORPUSCULAR HEMOGLOBIN 30.7 pg (27.0-33.0); MEAN CORPUSCULAR HGB CONC 33.4 g/dl (32.0-36.5); MEAN CORPUSCULAR VOLUME 91.9 fl (80.0-96.0); PLATELET COUNT, AUTOMATED 151 k/mm3 (150-450); RED CELL DISTRIBUTION WIDTH 18.4 % (11.5-14.5)
[2017-03-24 05:47] LABS: WHITE BLOOD COUNT 41.9 K/mm3 (4.0-10.0)
[2017-03-24 05:58] LABS: ALBUMIN 2.5 GM/DL (3.2-5.2); ALBUMIN/GLOBULIN RATIO 0.89 (1.00-1.93); ALKALINE PHOSPHATASE 272 U/L (45-117); ALT/SGPT 25 U/L (12-78); ANION GAP 9 MEQ/L (8-16); AST/SGOT 27 U/L (15-37); BILIRUBIN,TOTAL 0.2 MG/DL (0.2-1.0); BLOOD UREA NITROGEN 8 MG/DL (7-18); CALCIUM LEVEL 8.5 MG/DL (8.8-10.2); CARBON DIOXIDE LEVEL 28 MEQ/L (21-32); CHLORIDE LEVEL 108 MEQ/L (98-107); GLOMERULAR FILTRATION RATE > 60.0 (>39); GLUCOSE, FASTING 87 MG/DL (83-110); POTASSIUM SERUM 3.8 MEQ/L (3.5-5.1); SODIUM LEVEL 145 MEQ/L (136-145); TOTAL PROTEIN 5.3 GM/DL (6.4-8.2)
[2017-03-24 06:38] LABS: BANDS 4 % (< 11); NUCLEATED RED BLOOD CELL 1 % (0-0)
[2017-03-24 06:39] LABS: ANISOCYTOSIS 2+; DOHLE BODIES 1+
[2017-03-24 08:00] VITALS: BP 142/65
[2017-03-24] MEDS: HEPARIN SOD (PORCINE) 5000 UNITS/ML VIAL SQ SCH (08:38)
[2017-03-24] MEDS ORDERED: CEPH500T PO (09:03)
[2017-03-24] MEDS: SODIUM CHLORIDE 0.9% INJ 10 ML SYR IV SCH (10:35)
--- NOTE | 2017-03-25 06:53 | DSES ---
DATE OF ADMISSION: 03/22/2017 DATE OF DISCHARGE: 03/24/2017 HISTORY: This is a 71-year-old female patient whom I follow in the outpatient setting, who has a history of infiltrating ductal carcinoma, who has been following with hematology/oncology through [facility] with Jorge Luis. She has been undergoing chemotherapy, recently changed from Adriamycin and Cytotoxin to a new, unknown medication. She also had Neulasta on 03/17. She presented with back pain and she had concerns that she had a recurrent kidney stone as she has a recent history of these as well. In the emergency room, CT scan was obtained of the abdomen and pelvis without any evidence of kidney stone. She has had resolution of her back pain. She was admitted to the hospital, however, because her white blood cell count on presentation was 27,000, and there was concern for infection. She had blood cultures which both have been negative. Urine culture has also been negative. She has been afebrile. She really feels quite well. Her white blood cell count has climbed to 29.8 yesterday and nearly 42,000 today. Her hemoglobin is stable in comparison over the last couple of days. Her platelets are stable yesterday to today. She has myelocytes. I have spoken with Dr. Diane. We feel as though her white blood cell count is mostly likely reaction secondary to the Neulasta. She clinically is really feeling pretty well. Her wound culture grew out few Proteus and moderate Corynebacterium. We will treat her on oral Keflex. She has been on Zosyn as an inpatient. I think both of these are most likely contaminant. Her wound, in fact, does not really appear to be infected. We did a CT scan of her chest to make sure that she did not have a smoldering abscess that was not visible, and that in fact did not suggest there was anything infectious there as well. DISCHARGE DIAGNOSES: 1. Leukocytosis. 2. Infiltrating ductal carcinoma of the left breast. 3. Elevated lactic acid level likely secondary to lysis of tumor. 4. Back pain. DISCHARGE MEDICATIONS: - cephalexin 500 mg by mouth three times a day times seven days - acetaminophen 650 mg every six hours as needed for pain - loratadine 10 mg daily as needed - Nystatin swish and swallow 5 mL every six hours for thrush as needed - oxycodone/acetaminophen 5/325 one tablet every six hours as needed for pain
[2017-05-06] MEDS ORDERED: TYLE650T35 PO (14:13)
== END 2017-03-24 11:03 | disposition home or self-care (01) | DRG 815 ==
LOC: M ED 09:39 → M ED INP 12:56 → M PCU 14:33
PROVIDERS: ADMIT Family Medicine; ATTEND Family Medicine
DX: D72.829 Elevated white blood cell count, unspecified (principal); E87.2 Acidosis; C50.912 Malignant neoplasm of unspecified site of left female breast; F17.210 Nicotine dependence, cigarettes, uncomplicated; T45.8X5A Adverse effect of other primarily systemic and hematological agents, initial encounter; M54.5 Low back pain; R10.32 Left lower quadrant pain; Z87.442 Personal history of urinary calculi; Z79.899 Other long term (current) drug therapy; Z79.891 Long term (current) use of opiate analgesic

== ENCOUNTER → 2017-03-27 | Outpatient (REF) | payer MEDICARE ==
[~2017-03-27] MED LIST changes: +CEPH500T PO; +CLAR10CA3 PO; +MAPA325T2 PO; +NYST50SS SS; +OXYC1TAB23 PO; +TYLE650T35 PO; +physical therapy
== END ==
LOC: M SFHCADAM 14:59
PROVIDERS: ATTEND Physician Assistant Medical
DX: D05.12 Intraductal carcinoma in situ of left breast (principal); D72.829 Elevated white blood cell count, unspecified; Z53.8 Procedure and treatment not carried out for other reasons

== ENCOUNTER 2017-05-13 06:01 | Inpatient (IN) | payer MEDICARE ==
[~2017-05-13] VITALS: Ht 152.4 cm; Wt 49.4 kg
[~2017-05-13 06:01] MED LIST changes: -physical therapy
[2017-05-13] MEDS ORDERED: LR 500 ML IV ONE (06:15)
[2017-05-13] MEDS ORDERED: BUPIVACAINE HCL 0.25% 30 ML VIAL As Ordered ONE (07:07)
[2017-05-13] MEDS ORDERED: LIDOCAINE 1% SDV INJ 30 ML VIAL As Ordered ONE (07:07)
[2017-05-13] MEDS ORDERED: METHYLENE BLUE 0.5% (5MG/ML) 10 ML AMP (PROVAYBLUE)(Q9968 PER 1MG) As Ordered ONE (07:07)
[2017-05-13] MEDS ORDERED: MIDAZOLAM INJ 2 MG/2 ML VIAL (J2250) As Ordered ONE (07:47)
[2017-05-13] MEDS ORDERED: ROCURONIUM BROMIDE 50 MG/5 ML VIAL/SYRINGE As Ordered ONE (07:47)
[2017-05-13] MEDS ORDERED: LIDOCAINE 2% INJ 100 MG/5 ML SDV (FOR ANES.) As Ordered ONE (07:47)
[2017-05-13] MEDS ORDERED: PROPOFOL 500 MG/50 ML VIAL As Ordered ONE (07:47)
[2017-05-13] MEDS ORDERED: dexameTHASONE 4 MG/ML 1ML VIAL (J1100) As Ordered ONE (07:47)
[2017-05-13] MEDS ORDERED: METOCLOPRAMIDE INJ 10MG/2ML VIAL (J2765) As Ordered ONE (07:47)
[2017-05-13] MEDS ORDERED: fentaNYL 100 MCG/2 ML INJECTION (J3010) As Ordered ONE (07:47)
[2017-05-13] MEDS ORDERED: PHENYLephrine HCL 500 MCG/5 ML (100MCG/ML) SYRINGE (J2370) As Ordered ONE ×2 (07:59→09:03)
[2017-05-13] MEDS ORDERED: NEOSTIGMINE 1MG/ML 5 ML SYRINGE (J2710) As Ordered ONE (09:09)
[2017-05-13] MEDS ORDERED: GLYCOPYRROLATE INJ 0.2 MG/ML 2 ML VIAL As Ordered ONE (09:09)
[2017-05-13] MEDS ORDERED: ONDANSETRON 4MG/2ML VIAL (J2405) As Ordered ONE (09:09)
[2017-05-13] MEDS ORDERED: HYDROmorphone HCL 2 MG/ML 1ML VIAL (J1170) As Ordered ONE (09:30)
[2017-05-13] MEDS ORDERED: KETOROLAC 60 MG/2 ML VIAL (J1885) As Ordered ONE (10:48)
[2017-05-13] MEDS ORDERED: MORPHINE 4 MG/ML 1ML SYRINGE IV PRN (11:30)
[2017-05-13] MEDS ORDERED: ACETAMINOPHEN TAB 650MG DOSE (2X325MG) PO PRN (11:30)
[2017-05-13] MEDS ORDERED: NORCO, ANEXSIA 5/325MG TABLET (HYDROcodone/ACETAMINOPHEN) PO PRN ×3 (11:30→11:45)
[2017-05-13] MEDS ORDERED: KETOROLAC 30 MG/ML VIAL (J1885) IV PRN (11:30)
[2017-05-13] MEDS ORDERED: ONDANSETRON 4MG/2ML VIAL (J2405) IV PRN ×2 (11:30→11:45)
[2017-05-13] MEDS ORDERED: LR 1,000 ML IV SCH (11:45)
[2017-05-13] MEDS ORDERED: fentaNYL 100 MCG/2 ML INJECTION (J3010) IV PRN (11:45)
[2017-05-13 12:15] VITALS: BP 134/63
[2017-05-13] MEDS: SENOKOT S TAB PO SCH ×2 (12:27→20:33)
[2017-05-13] MEDS: LR 1,000 ML IV SCH ×2 (12:31→20:34)
[2017-05-13 12:45] VITALS: BP 134/64
[2017-05-13] MEDS: ENOXAPARIN 40 MG/0.4 ML SYRINGE (J1650) SC SCH (13:29)
[2017-05-13 13:45] VITALS: BP 125/60
[2017-05-13 14:45] VITALS: BP 148/86
--- NOTE | 2017-05-13 15:15 | ROOPDOC ---
[facility] Report Of Operation Report of Operation DATE OF PROCEDURE: 05/13/17 PREPROCEDURE DIAGNOSES: Locally advanced left breast cancer POSTPROCEDURE DIAGNOSES: Locally advanced left breast cancer PROCEDURE: Modified Radical Mastectomy, left SURGEON: Kristine Valera MD [employer]: Flora Hale MD; RANJANA Braden ANESTHESIA: general anesthesia ESTIMATED BLOOD LOSS: Approximately 40 mL. COMPLICATIONS: none REMARKS: The patient is a 71-year-old female who back in November was noted to have a fungating mass of broke through her skin involving the left breast was performed and biopsy to be triple negative infiltrating ductal adenocarcinoma of her left breast. Metastatic workup was negative including a fine-needle aspiration of a enlarged lymph node in the left axilla she underwent neoadjuvant chemotherapy with decrease in size of the breast mass. She presents today for modified radical mastectomy. DESCRIPTION OF PROCEDURE: This is a 71-year-old male/ female found to have locally advanced left breast infiltrating ductal carcinoma of the breast brought in today for modified radical mastectomy after completing her neoadjuvant chemotherapy. After discussing the risks, benefits, and alternatives to surgery, the patient has agreed to undergo modified radical mastectomy. The patient was brought to the operating room, and the site of surgery was confirmed. Time-outs were performed using both preinduction and pre-incision safety checklists to verify correct patient, procedure, site, and additional critical information prior to beginning the procedure. General anesthesia was induced. The breast, chest wall, neck, axilla, and upper arm were prepped and draped in the usual sterile fashion. An oblique elliptical skin incision was made on the breast encompassing the breast mass that broke through the skin with about a 2 cm margin from the point that it broke through the skin and also encompassing the nipple-areolar complex. Flaps were raised in the avascular plane between the subcutaneous tissue and breast tissue to the clavicle superiorly, sternum medially, inferiorly to the superior aspect of the rectus sheath/ inframammary fold, and anterior aspect of the latissimus dorsi laterally. Hemostasis was achieved with a Bovie cautery as well as with the use of the Harmonic scalpel. Progressing from medial to lateral, the breast tissue with the underlying pectoralis fascia was dissected off the chest wall. If indicated: The area underneath the tumor has some thickening and appears to be adhered directly into the pectoralis muscle, so this portion of the tumor and surrounding muscle was removed en bloc with the breast tissue. The clavipectoral fascia was incised, and the fatty tissue between and below the pectoralis major and minor muscles was excised. The pectoral muscles were retracted medially, and the medial pectoral neurovascular bundle was identified and preserved. The axillary vein was then identified and cleared of overlying fatty tissue. The thoracodorsal nerve innervating the latissimus dorsi was identified and preserved. The long thoracic nerve was then identified along the edge of the chest wall and preserved. The remaining agustina tissue between these nerves was then carefully removed. The specimen, consisting of breast and attached agustina tissue, was excised by dividing the remaining lateral pedicle and sent to pathology. The level II lymph nodes was marked with a suture The wound was irrigated and hemostasis was achieved. I placed Tisseel fibrin glue in the cavity at the axilla to hopefully prevent seroma formation. I left 210 flat YADIRA drains coming out from the inferior flap below the axilla. The first drain goes underneath the breast flaps and the second drain to the axilla. The incision was then closed in layers with 3-0 Vicryl and the subcutaneous and dermal area to try to reapproximate the skin flaps. We further excised both lateral and medial to cut down on the excess flap inferiorly and avoid dog earring of the flaps. After watertight closure of the dermal area. The skin was then closed with 4-0 Monocryl in subcuticular fashion. Steri-Strips as well as bulky gauze dressing covered with tape was then used also to do some mild compression on the area underneath the flaps to prevent seroma. The drains were sutured to the skin. A pulse of brown with bulky gauze dressing then finally used to cover the chest. Patient was promptly awakened, extubated and brought to recovery room in stable condition. CRYSTAL VALERA MD May 13, 2017 15:15
[2017-05-13 15:45] VITALS: BP 146/78
[2017-05-13 22:00] VITALS: BP 141/65
[2017-05-14 02:00] VITALS: BP 134/64
[2017-05-14] MEDS: LR 1,000 ML IV SCH (04:18)
[2017-05-14 06:00] VITALS: BP 156/71
[2017-05-14 07:23] LABS: ANION GAP 8 MEQ/L (8-16); BLOOD UREA NITROGEN 13 MG/DL (7-18); CARBON DIOXIDE LEVEL 26 MEQ/L (21-32); CHLORIDE LEVEL 111 MEQ/L (98-107); CREATININE FOR GFR 0.67 MG/DL (0.55-1.02); GLOMERULAR FILTRATION RATE > 60.0 (>39); GLUCOSE, FASTING 93 MG/DL (83-110); POTASSIUM SERUM 4.1 MEQ/L (3.5-5.1); SODIUM LEVEL 145 MEQ/L (136-145)
[2017-05-14 07:27] LABS: BASO % 0.1 % (0.0-1.0); EOS % 0.1 % (0.0-3.0); LARGE UNSTAINED CELL # 0.3 K/mm3 (0.0-0.4); LARGE UNSTAINED CELL % 1.1 % (0.0-4.0); LYMPH # 0.9 K/mm3 (1.5-4.5); LYMPH % 3.8 % (24.0-44.0); MEAN CORPUSCULAR HEMOGLOBIN 35.5 pg (27.0-33.0); MEAN CORPUSCULAR HGB CONC 33.3 g/dl (32.0-36.5); MEAN CORPUSCULAR VOLUME 106.4 fl (80.0-96.0); MONO # 0.8 K/mm3 (0.0-0.8); MONO % 3.6 % (0.0-5.0); NEUTROPHILS # 21.1 K/mm3 (1.8-7.7); NEUTROPHILS % 91.4 % (36.0-66.0); PLATELET COUNT, AUTOMATED 196 k/mm3 (150-450); RED CELL DISTRIBUTION WIDTH 15.8 % (11.5-14.5)
[2017-05-14 07:28] LABS: ADD MORPHOLOGY? YES
[2017-05-14] MEDS ORDERED: physical therapy (07:56)
[2017-05-14 08:32] LABS: ANISOCYTOSIS 2+
[2017-05-14] MEDS: SENOKOT S TAB PO SCH (09:01)
[2017-05-14] MEDS: ENOXAPARIN 40 MG/0.4 ML SYRINGE (J1650) SC SCH (09:01)
[2017-05-14 10:00] VITALS: BP 145/62
--- NOTE | 2017-06-09 02:35 | DS.PDOC ---
Discharge Summary General Date of Admission May 13, 2017 at 07:58 Date of Discharge 05/14/2017 Attending Physician: CRYSTAL VALERA MD Discharge Summary PROCEDURES PERFORMED DURING STAY: Left Modified radical mastectomy ADMITTING DIAGNOSES: 1. Locally advanced left breast infiltrating adenocarcinoma DISCHARGE DIAGNOSES: 1. Locally advanced left breast infiltrating adenocarcinoma COMPLICATIONS/CHIEF COMPLAINT: Locally Advanced Left Breast Cancer. HISTORY OF PRESENT ILLNESS: Patient admitted after undergoing modified radical mastectomy. She has a known left breast cancer and has undergone neoadjuvant chemotherapy with partial response. HOSPITAL COURSE: Patient was brought in electively for left modified radical mastectomy. She tolerated procedure well. 2 subcutaneous YADIRA drains were left in place which drained 155 MLS in total overnight and 100 ML's the following day. Most of the drainage comes from the catheter coursing into the lower flap of the chest skin closure with only minimal drainage to the drain in the axilla. Patient was comfortable throughout her stay. She is comfortable taking care of her drains at home. She was taught how to take care of her drains by her nurse prior to going home. DISCHARGE MEDICATIONS: Please see below. ALLERGIES: Please see below. PHYSICAL EXAMINATION ON DISCHARGE: VITAL SIGNS: Please see below. GENERAL: Comfortable HEENT: [place] palpebral conjunctiva, lips are moist NECK: No enlarged cervical lymph nodes, no jugular venous distention CARDIOVASCULAR EXAMINATION: Regular heart rate and rhythm RESPIRATORY EXAMINATION: Clear to auscultation bilaterally ABDOMINAL EXAMINATION: Benign EXTREMITIES: Normal no lymphedema or swelling on the left arm. Patient to move shoulders and arm accordingly. SKIN: Left chest incision is healing, clean, dry and intact. Axilla without any noticeable fluctuance. 2 subcutaneous YADIRA drains draining light pink serosanguineous fluid. NEUROLOGICAL EXAMINATION: Awake, alert, oriented PSYCHIATRIC EXAMINATION: Appropriate mood and affect LABORATORY DATA: Please see below. IMAGING: None PROGNOSIS: Fair ACTIVITY: Light activity until seen by me in the clinic. Patient instructed to do shoulder rotational exercises on the left arm and shoulder. DIET: Regular as tolerated DISCHARGE PLAN: Patient is sent home with the drains. She will follow-up with me next week to consider removal of the drain. DISPOSITION: 01 Home, Self-Care. DISCHARGE INSTRUCTIONS: 1. Keep wound site dry. 2. Empty YADIRA drains daily or as needed. Record amount in character. 3. Follow-up with me next week ITEMS TO FOLLOWUP ON ON OUTPATIENT: 1. YADIRA drain output 2. Review pathology DISCHARGE CONDITION: [Stable]. TIME SPENT ON DISCHARGE: Greater than 45 minutes. Discharge Medications Scheduled Acetaminophen (Tylenol 8 Hour Arthritis) 650 Mg Tab, 650 MG PO BID, (Reported) Scheduled PRN Loratadine (Claritin) 10 Mg Cap, 10 MG PO for PAIN, (Reported) TAKES FOR SIDE EFFECTS OF CHEMO Nystatin (Nystatin Oral Susp) 5 Ml Susp, 5 ML SS Q6H PRN for THRUSH, (Reported) Oxycodone/Acetaminophen (Oxycodone/Acetaminophen 5-325 mg) 1 Tab Tab, 1 TAB PO Q6H PRN for PAIN, (Reported) Miscellaneous Medications [physical therapy] Allergies Coded Allergies: No Known Allergies (Verified , 05/13/17) CRYSTAL VALERA MD Jun 09, 2017 02:34
== END 2017-05-14 12:00 | disposition home or self-care (01) | DRG 583 ==
LOC: M SDC 06:01 → M OR 07:58 → EDSTATUS 10:00 → M MSPAV 12:19
PROVIDERS: ADMIT Surgery; ATTEND Surgery
PROC: 07T60ZZ Resection of Left Axillary Lymphatic, Open Approach (ICD-10-PCS; 2017-05-13)
PROC: 0HTU0ZZ Resection of Left Breast, Open Approach (ICD-10-PCS; principal; 2017-05-13 07:30)
DX: C50.812 Malignant neoplasm of overlapping sites of left female breast (principal); Z92.21 Personal history of antineoplastic chemotherapy; F17.210 Nicotine dependence, cigarettes, uncomplicated; Z79.899 Other long term (current) drug therapy; Z90.710 Acquired absence of both cervix and uterus; Z87.442 Personal history of urinary calculi

== ENCOUNTER 2017-05-21 09:44 | Outpatient (RCR) | payer MEDICARE ==
[~2017-05-21 09:44] MED LIST changes: +physical therapy
== END 2017-05-23 ==
LOC: M PT 09:44
PROVIDERS: ATTEND Surgery
DX: Z51.89 Encounter for other specified aftercare (principal); R59.1 Generalized enlarged lymph nodes; Z90.12 Acquired absence of left breast and nipple
CPT/HCPCS: 97162; G8984; G8985; G8986

== ENCOUNTER → 2017-06-02 | Outpatient (CLI) | payer MEDICARE ==
--- NOTE | 2017-06-03 08:29 | RADONC ---
RADIATION ONCOLOGY CONSULTATION NOTE DATE: 06/02/2017 CHART NUMBER: [id number] DIAGNOSIS: Left breast cancer. STAGE: IIIB, [id number]. ECOG PERFORMANCE STATUS: 0 CONSULTATION NOTE: Ms. 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 HISTORY OF PRESENT ILLNESS: The patient was in her usual state of health and had a long history of a large fungating mass, which got bigger over several years. She developed some left-sided flank pain in November 2016 and was evaluated in the ER. She was noted at that time to have a very large breast mass. An ultrasound guided biopsy was undertaken and revealed a high-grade infiltrating ductal carcinoma. The tumor was estrogen and progesterone receptor negative as well as HER2 negative. A CT of the chest, abdomen and pelvis was done and showed an 8.6 cm left sided mass. There were no notable lymph nodes present. The patient underwent an ultrasound-guided axillary lymph node biopsy on 12/10/2016 which was negative. A bone scan done 12/10/2016 was also negative for metastatic disease. The patient was initially staged as having a large fungating triple negative stage IIIB, [id number] breast cancer of the left side. She was seen by our medical oncologist, Dr. Perez and underwent four cycles of Adriamycin and Cytoxan followed by four cycles of Taxol. On 05/13/2017, the patient underwent a left modified radical mastectomy. Pathology revealed a high-grade metaplastic carcinoma. It was noted that the degree of response to neoadjuvant chemotherapy was minor. The tumor was estrogen receptor and progesterone receptor negative as well as HER2 negative. 11 axillary lymph nodes were sampled and all were negative for malignancy. The nipple was distorted, had a crusted lesion, was ulcerated. It measured 3.5 cm x 1.5 cm. There was additional puckering and roughening of the skin noted. This was 1.2 cm away from the main skin tumor. The margins of resection were negative and the closest margin was 0.9 cm. The patient has done well since surgery and is now presenting to us for consideration of postoperative radiation therapy. PAST MEDICAL HISTORY: The patient's past medical history is positive for left-sided kidney stones. It is otherwise noncontributory. She has been in general good health. ALLERGIES: The patient has NO KNOWN DRUG ALLERGIES. SOCIAL HISTORY: The patient has smoked approximately half a pack of cigarettes a day for 50 years. She does not abuse alcohol. FAMILY HISTORY: The patient's family history is positive for a mother with ovarian carcinoma. REVIEW OF SYSTEMS: The patient's review of systems is noncontributory. She denies nausea, vomiting, fevers, chills, night sweats, diplopia, headaches, anxiety or depression, anorexia, weight loss, visual disturbances, chest pain, urinary or bowel difficulties, bone pain, or neurological problems. PHYSICAL EXAMINATION: The patient is a well-developed, well-nourished female in no acute distress. HEENT exam is normocephalic, atraumatic. Extraocular movements are intact. There is no palpable cervical, supraclavicular, infraclavicular, axillary, or inguinal lymphadenopathy present. Lungs are clear to auscultation and percussion. Heart has a regular rate and rhythm. Abdomen is benign with no hepatosplenomegaly, masses, or tenderness. Breast examination reveals a left chest wall is free of nodularity, ulceration or residual disease. Her right breast is free of masses or discharge. Skeletal examination reveals no tenderness to pressure or percussion of the bony skeleton. Extremities reveal no clubbing, cyanosis, or edema. Neurologic exam is grossly intact, as is the remainder of the physical examination. ASSESSMENT: Clearly, Ms. Choudhury is a candidate for external beam radiation therapy and I have so informed her. I have discussed with the patient in detail the potential benefits as well as possible acute and chronic sequelae of external beam radiation therapy. We have discussed the logistics of treatment planning, simulation and subsequent fractionated daily radiation treatments. Thank you for allowing us to participate in the care of this very pleasant woman. I will keep you informed as any new developments as they occur.
== END ==
LOC: M ONCR 13:11
PROVIDERS: ATTEND Radiology Radiation Oncology
DX: C50.912 Malignant neoplasm of unspecified site of left female breast (principal)

== ENCOUNTER → 2017-06-09 | Outpatient (CLI) | payer MEDICARE | LOC: M RAD 10:31 | PROVIDERS: ATTEND Radiology Radiation Oncology | DX: C50.919 Malignant neoplasm of unspecified site of unspecified female breast (principal) ==

== ENCOUNTER → 2017-06-22 | Outpatient (REF) | payer MEDICARE ==
[2017-06-22 19:54] LABS: BASO # 0.1 10^3/uL (0.0-0.2); BASO % 0.6 % (0.0-1.0); EOS # 0.2 10^3/uL (0.0-0.50); EOS % 2.2 % (0.0-3.0); IMMATURE GRANULOCYTE % 0.3 % (0-0); LYMPH # 1.3 10^3/uL (1.5-4.5); LYMPH % 13.2 % (24.0-44.0); MEAN CORPUSCULAR HEMOGLOBIN 32.9 pg (27.0-33.0); MEAN CORPUSCULAR HGB CONC 31.7 g/dl (32.0-36.5); MEAN CORPUSCULAR VOLUME 103.6 fl (80.0-96.0); MONO # 0.6 10^3/uL (0.0-0.8); MONO % 6.4 % (0.0-5.0); NEUTROPHILS # 7.5 10^3/uL (1.8-7.7); NEUTROPHILS % 77.3 % (36.0-66.0); PLATELET COUNT, AUTOMATED 293 10^3/uL (150-450); RED CELL DISTRIBUTION WIDTH 13.3 % (11.5-14.5); WHITE BLOOD COUNT 9.7 10^3/uL (4.0-10.0)
[2017-06-22 20:06] LABS: ALT/SGPT 35 U/L (12-78); ANION GAP 8 MEQ/L (8-16); AST/SGOT 20 U/L (7-37); BLOOD UREA NITROGEN 21 MG/DL (7-18); CALCIUM LEVEL 9.5 MG/DL (8.8-10.2); CARBON DIOXIDE LEVEL 27 MEQ/L (21-32); CHLORIDE LEVEL 104 MEQ/L (98-107); CREATININE FOR GFR 0.82 MG/DL (0.55-1.02); GLOMERULAR FILTRATION RATE > 60.0 (>39); GLUCOSE, FASTING 93 MG/DL (83-110); POTASSIUM SERUM 4.2 MEQ/L (3.5-5.1); SODIUM LEVEL 139 MEQ/L (136-145)
[2017-06-22 20:07] LABS: ALBUMIN/GLOBULIN RATIO 1.14 (1.00-1.93); ALKALINE PHOSPHATASE 454 U/L (45-117); BILIRUBIN,TOTAL 0.2 MG/DL (0.2-1.0); TOTAL PROTEIN 7.5 GM/DL (6.4-8.2)
== END ==
LOC: M SFHCADAM 13:44
PROVIDERS: ATTEND Physician Assistant Medical
DX: D72.828 Other elevated white blood cell count (principal); Z23 Encounter for immunization
CPT/HCPCS: 80053; 85025; 90662; G0008

== ENCOUNTER → 2017-06-23 | Outpatient (CLI) | payer MEDICARE ==
[~2017-06-23] MED LIST changes: +LIDOCAINE 1% MDV 20ML VIAL As Ordered ONE
--- NOTE | 2017-06-23 13:46 | REP ---
LIMITED CT CHEST: Limited CT images of the chest are performed prior to a scheduled CT guided biopsy of a right lung mass seen on recent CT localization images from radiation therapy. Comparison is made with those images dated 06/09/2017. Today's CT images show almost complete resolution of the suspected right lower lobe mass. There is some ill-defined parenchymal opacity of a very mild degree. Findings are consistent with resolving infiltrate or atelectasis. Biopsy is not performed. I would recommend another followup CT of the chest in 2 to 4 weeks to ensure complete resolution. Signed by Steven Chatman MD 06/23/2017 05:20 P
== END ==
LOC: M RADPRO 12:14
PROVIDERS: ATTEND Radiology Radiation Oncology
DX: R91.8 Other nonspecific abnormal finding of lung field (principal); Z85.3 Personal history of malignant neoplasm of breast; Z90.12 Acquired absence of left breast and nipple; Z87.442 Personal history of urinary calculi; Z96.0 Presence of urogenital implants; Z87.891 Personal history of nicotine dependence

== ENCOUNTER 2017-06-24 02:00 | Outpatient (RCR) | payer MEDICARE ==
[~2017-06-24 02:00] MED LIST changes: -LIDOCAINE 1% MDV 20ML VIAL As Ordered ONE
--- NOTE | 2017-07-01 10:23 | RADONC ---
RADIATION ONCOLOGY PROGRESS NOTE DATE: 06/29/2017 CHART NUMBER: [id number]. PROGRESS NOTE: Ms. Choudhury underwent her first fraction of radiation today to her left chest wall for a dose of 180 cGy. Radiation was tolerated without difficulty or discomfort. REVIEW OF SYSTEMS: The patient's review of systems is noncontributory. Denies nausea, vomiting, fevers, chills, night sweats, diplopia, headaches, anxiety or depression, anorexia, weight loss, visual disturbances, chest pain, urinary or bowel difficulties, bone pain, or neurological problems. PHYSICAL EXAMINATION: The patient's skin clearly showed no evidence of radiation change present. Her physical exam remains unchanged since time of consultation. Ms. Choudhury tolerated her first fraction without difficulty make that and radiation will continue as scheduled.
--- NOTE | 2017-07-06 10:10 | RADONC ---
RADIATION ONCOLOGY PROGRESS NOTE DATE: 07/06/2017 CHART NUMBER: [id number] Ms. Choudhury is presently at a dose of 1080 cGy to her left chest wall and is tolerating treatments quite well at this point with no complaints related to her radiation therapy. She is having no skin or bone pain. The patient's review of systems is noncontributory. She denies nausea, vomiting, fevers, chills, night sweats, diplopia, headaches, anxiety or depression, anorexia, weight loss, visual disturbances, chest pain, urinary or bowel difficulties, bone pain, or neurological problems. PHYSICAL EXAMINATION: The patient's skin is in good condition with no evidence of radiation change present. There is no moist or dry desquamation. The remainder of the physical exam remains unchanged. Ms. Choudhury is tolerating treatments quite well and radiation will continue as scheduled.
--- NOTE | 2017-07-13 15:45 | RADONC ---
RADIATION ONCOLOGY PROGRESS NOTE DATE: 07/13/2017 CHART NUMBER: [id number] Ms. Choudhury is presently at a dose of 1800 cGy to her left chest wall and is tolerating treatments quite well at this point with no complaints related to her radiation therapy. She is having no skin or bone discomfort. REVIEW OF SYSTEMS: The patient's review of systems is noncontributory. She denies nausea, vomiting, fevers, chills, night sweats, diplopia, headaches, anxiety or depression, anorexia, weight loss, visual disturbances, chest pain, urinary or bowel difficulties, bone pain, or neurological problems. PHYSICAL EXAMINATION: The patient's skin is in good condition with no evidence of moist or dry desquamation. The remainder of her physical exam remains unchanged as well. Ms. Choudhury is tolerating treatments quite well and radiation will continue as scheduled.
--- NOTE | 2017-07-20 09:59 | RADONC ---
RADIATION ONCOLOGY PROGRESS NOTE: DATE: 07/20/2017 CHART NUMBER: [id number] Ms. Choudhury is presently at a dose of 2340 cGy to her left chest wall and is tolerating treatments quite well at this point with no significant difficulties related to her radiation therapy other than some slight skin tenderness. REVIEW OF SYSTEMS: The patient's review of systems is positive for some skin tenderness but is otherwise noncontributory. She denies nausea, vomiting, fevers, chills, night sweats, diplopia, headaches, anxiety or depression, anorexia, weight loss, visual disturbances, chest pain, urinary or bowel difficulties, bone pain, or neurological problems. PHYSICAL EXAMINATION: The patient's skin shows some erythema present but overall is in good condition with no evidence of moist or dry desquamation. The remainder of her physical exam remains unchanged. Ms. Choudhury is tolerating treatments quite well and radiation will continue as scheduled.
== END 2017-07-23 ==
LOC: M ONCR 02:00
PROVIDERS: ATTEND Radiology Radiation Oncology
DX: C50.112 Malignant neoplasm of central portion of left female breast (principal)

== ENCOUNTER 2017-07-24 10:55 | Outpatient (RCR) | payer MEDICARE | END 2017-08-23 | LOC: M ONCR 10:55 | DX: Z51.89 Encounter for other specified aftercare (principal); C50.112 Malignant neoplasm of central portion of left female breast | CPT/HCPCS: 77300 ==

== ENCOUNTER → 2017-09-23 | Outpatient (CLI) | payer MEDICARE | LOC: M ONCR 09:28 | DX: C50.112 Malignant neoplasm of central portion of left female breast (principal) | CPT/HCPCS: G0463 ==

== ENCOUNTER → 2017-10-06 | Outpatient (CLI) | payer MEDICARE ==
[~2017-10-06] MED LIST changes: -AUGM875T28 PO; -CEPH500T PO; -CLAR10CA3 PO; -DITR5TAB PO; -FERR325T3 PO; -LEVA1TAB2 PO; +LIDOCAINE 2% MDV 20 ML VIAL As Ordered; -MAPA325T2 PO; -MAPA325T3 PO; -NYST50SS SS; -OXYC1TAB23 PO; -PERCOCET PO; -TYLE650T35 PO; -physical therapy
== END | disposition home or self-care (01) ==
LOC: M IRPRO 11:29
DX: Z45.2 Encounter for adjustment and management of vascular access device (principal); C50.919 Malignant neoplasm of unspecified site of unspecified female breast
CPT/HCPCS: 36590

== ENCOUNTER → 2017-12-15 | Outpatient (REF) | payer MEDICARE ==
[2017-12-15 20:26] LABS: BASO # 0.1 10^3/uL (0.0-0.2); BASO % 0.9 % (0.0-1.0); EOS # 0.2 10^3/uL (0.0-0.50); EOS % 2.2 % (0.0-3.0); HEMATOCRIT 42.5 % (36.0-47.0); HEMOGLOBIN 13.9 g/dl (12.0-15.5); IMMATURE GRANULOCYTE % 0.5 % (0-3.0); LYMPH # 1.6 10^3/uL (1.5-4.5); LYMPH % 20.4 % (24.0-44.0); MEAN CORPUSCULAR HGB CONC 32.7 g/dl (32.0-36.5); MONO # 0.9 10^3/uL (0.0-0.8); MONO % 11.3 % (0.0-5.0); NEUTROPHILS # 5.1 10^3/uL (1.8-7.7); NEUTROPHILS % 64.7 % (36.0-66.0); PLATELET COUNT, AUTOMATED 204 10^3/uL (150-450); RED BLOOD COUNT 4.21 10^6/uL (4.00-5.40); RED CELL DISTRIBUTION WIDTH 13.2 % (11.5-14.5); WHITE BLOOD COUNT 7.8 10^3/uL (4.0-10.0)
[2017-12-15 20:53] LABS: VITAMIN B12 LEVEL 374 PG/ML
[2017-12-15 20:54] LABS: FOLATE 15.9 NG/ML
[2017-12-15 20:58] LABS: ALBUMIN 3.9 GM/DL (3.2-5.2); ALBUMIN/GLOBULIN RATIO 1.05 (1.00-1.93); ALKALINE PHOSPHATASE 209 U/L (45-117); ALT/SGPT 23 U/L (12-78); ANION GAP 6 MEQ/L (8-16); AST/SGOT 18 U/L (7-37); BILIRUBIN,TOTAL 0.3 MG/DL (0.2-1.0); BLOOD UREA NITROGEN 14 MG/DL (7-18); CARBON DIOXIDE LEVEL 30 MEQ/L (21-32); CHLORIDE LEVEL 108 MEQ/L (98-107); CHOLESTEROL LEVEL 259 MG/DL (<200); CHOLESTEROL RISK RATIO 4.709 (<5); CREATININE FOR GFR 0.85 MG/DL (0.55-1.30); FERRITIN 34 NG/ML (8-252); GLOMERULAR FILTRATION RATE > 60.0 (>39); GLUCOSE, FASTING 69 MG/DL (70-100); HDL CHOLESTEROL 55 MG/DL (>40); IRON (FE) 76 UG/DL (50-170); LDL CHOLESTEROL 161.2 MG/DL (<100); NON-HDL-C 204 MG/DL; POTASSIUM SERUM 4.3 MEQ/L (3.5-5.1); SODIUM LEVEL 144 MEQ/L (136-145); TOTAL IRON BINDING CAPACITY 330 UG/DL (250-450); TOTAL PROTEIN 7.6 GM/DL (6.4-8.2); TRIGLYCERIDES LEVEL 214 MG/DL (<150)
[2017-12-15 21:37] LABS: TOTAL 25(OH) VITAMIN D 6.4 NG/ML (30.0-100.0)
== END ==
LOC: M SFHCADAM 16:20
DX: Z00.00 Encounter for general adult medical examination without abnormal findings (principal); D05.12 Intraductal carcinoma in situ of left breast; D50.9 Iron deficiency anemia, unspecified; Z78.0 Asymptomatic menopausal state; Z23 Encounter for immunization; F17.210 Nicotine dependence, cigarettes, uncomplicated; Z79.899 Other long term (current) drug therapy
CPT/HCPCS: 82746

== ENCOUNTER → 2018-01-15 | Outpatient (CLI) | payer MEDICARE | LOC: M CARPUL 08:48 | DX: C50.919 Malignant neoplasm of unspecified site of unspecified female breast (principal); Z79.899 Other long term (current) drug therapy; Z12.31 Encounter for screening mammogram for malignant neoplasm of breast | CPT/HCPCS: 77067 ==

== ENCOUNTER 2018-03-31 09:29 | Outpatient (RCR) | payer MEDICARE | END 2018-04-23 | LOC: M ONCR 09:29 | DX: C50.212 Malignant neoplasm of upper-inner quadrant of left female breast (principal) | CPT/HCPCS: G0463 ==

== ENCOUNTER → 2018-08-31 | Outpatient (REF) | payer MEDICARE ==
[~2018-08-31] MED LIST changes: +AUGM875T28 PO; +CEPH500T PO; +CLAR10CA3 PO; +DITR5TAB PO; +FERR325T3 PO; +LEVA1TAB2 PO; -LIDOCAINE 2% MDV 20 ML VIAL As Ordered; +MAPA325T2 PO; +MAPA325T3 PO; +NYST50SS SS; +OXYC1TAB23 PO; +PERCOCET PO; +SILV40CR EXT; +TYLE650T35 PO; +VITA500T3 PO; +[UNRECOGNIZED DRUG - CODE] PO; +physical therapy
[2018-08-31 13:18] LABS: BASO % 0.4 % (0.0-1.0); EOS # 0.1 10^3/uL (0.0-0.50); EOS % 1.3 % (0.0-3.0); HEMATOCRIT 42.3 % (36.0-47.0); HEMOGLOBIN 13.6 g/dl (12.0-15.5); LYMPH # 1.1 10^3/uL (1.5-4.5); LYMPH % 11.8 % (24.0-44.0); MEAN CORPUSCULAR HEMOGLOBIN 32.2 pg (27.0-33.0); MEAN CORPUSCULAR HGB CONC 32.2 g/dl (32.0-36.5); MONO # 0.7 10^3/uL (0.0-0.8); NEUTROPHILS % 77.4 % (36.0-66.0); PLATELET COUNT, AUTOMATED 208 10^3/uL (150-450); RED BLOOD COUNT 4.23 10^6/uL (4.00-5.40); WHITE BLOOD COUNT 9.1 10^3/uL (4.0-10.0)
[2018-08-31 13:25] LABS: ALBUMIN 3.7 GM/DL (3.2-5.2); BILIRUBIN,TOTAL 0.3 MG/DL (0.2-1.0); CALCIUM LEVEL 9.4 MG/DL (8.8-10.2); CREATININE FOR GFR 1.11 MG/DL (0.55-1.30); GLOMERULAR FILTRATION RATE 51.4 (>39); POTASSIUM SERUM 4.2 MEQ/L (3.5-5.1); TOTAL PROTEIN 6.9 GM/DL (6.4-8.2)
== END ==
LOC: M SMT 12:25
PROVIDERS: ATTEND Internal Medicine Hematology & Oncology
DX: C50.212 Malignant neoplasm of upper-inner quadrant of left female breast (principal)

== ENCOUNTER → 2018-09-29 | Outpatient (CLI) | payer MEDICARE ==
--- NOTE | 2018-09-30 11:23 | RADONC ---
RADIATION ONCOLOGY FOLLOWUP NOTE DATE: 09/29/2018 CHART NUMBER: [id number] DIAGNOSIS: Left breast cancer. STAGE: Stage III B, [id number]. ECOG PERFORMANCE STATUS: 0. FOLLOWUP NOTE: Ms. 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 The patient presents today reporting that she is doing quite well with no complaints at this time related to her radiation therapy or disease. She has no chest wall or bone pain. The patient's review of systems is noncontributory. Denies nausea, vomiting, fevers, chills, night sweats, diplopia, headaches, anxiety or depression, anorexia, weight loss, visual disturbances, chest pain, urinary or bowel difficulties, bone pain, or neurological problems. PHYSICAL EXAMINATION: The patient is a well-developed, well-nourished woman in no acute distress. HEENT exam is normocephalic, atraumatic. Extraocular movements are intact. There is no palpable cervical, supraclavicular, infraclavicular, axillary, or inguinal lymphadenopathy present. Lungs are clear to auscultation and percussion. Heart has a regular rate and rhythm. Abdomen is benign with no hepatosplenomegaly, masses, or tenderness. Breast examination reveals a left chest wall that is free of nodularity, ulceration or evidence of recurrent disease. Her right breast is free of masses or discharge. Skeletal examination reveals no tenderness to pressure or percussion of the bony skeleton. Extremities reveal no clubbing, cyanosis, or edema. Neurologic exam is grossly intact, as is the remainder of the physical examination. ASSESSMENT The patient is clinically EULALIO at this time. She is being followed and managed closely by her medical oncologist, Dr. Sykes, and I have therefore discharged her from our followup except on a p.r.n. basis. The patient has been given my cell phone number and office number if I could be of any assistance in the meantime. I have also ordered a screening mammography of the right breast to be done after January 17, 2019 and she is scheduled to see her medical oncologist, Dr. Yancey following that mammogram. cc: MD Leny Leo MD
== END ==
LOC: M ONCR 09:42
PROVIDERS: ATTEND Radiology Radiation Oncology
DX: C50.912 Malignant neoplasm of unspecified site of left female breast (principal)

== ENCOUNTER → 2018-12-20 | Outpatient (REF) | payer MEDICARE ==
[2018-12-20 12:57] LABS: ALBUMIN 3.8 GM/DL (3.2-5.2); ALT/SGPT 28 U/L (12-78); BILIRUBIN,TOTAL 0.4 MG/DL (0.2-1.0); BLOOD UREA NITROGEN 18 MG/DL (7-18); CALCIUM LEVEL 9.3 MG/DL (8.8-10.2); CARBON DIOXIDE LEVEL 27 MEQ/L (21-32); CHLORIDE LEVEL 106 MEQ/L (98-107); CHOLESTEROL LEVEL 240 MG/DL (<200); CHOLESTEROL RISK RATIO 5.106 (<5); CREATININE FOR GFR 0.89 MG/DL (0.55-1.30); GLOMERULAR FILTRATION RATE > 60.0 (>39); GLUCOSE, FASTING 103 MG/DL (70-100); HDL CHOLESTEROL 47 MG/DL (>40); LDL CHOLESTEROL 154 MG/DL (<100); NON-HDL-C 193 MG/DL; POTASSIUM SERUM 4.3 MEQ/L (3.5-5.1); SODIUM LEVEL 140 MEQ/L (136-145); TOTAL PROTEIN 7.1 GM/DL (6.4-8.2); TRIGLYCERIDES LEVEL 193 MG/DL (<150)
[2018-12-20 13:00] LABS: HEMOGLOBIN A1c 5.5 %
== END ==
LOC: M SFHCADAM 08:03
PROVIDERS: ATTEND Physician Assistant Medical
DX: Z13.220 Encounter for screening for lipoid disorders (principal); E78.00 Pure hypercholesterolemia, unspecified; R73.01 Impaired fasting glucose

== ENCOUNTER → 2019-01-03 | Outpatient (CLI) | payer MEDICARE ==
--- NOTE | 2019-01-03 15:33 | DEXA ---
AP SPINE L1 - L4 0.881 -2.5 -0.8 LT FEMUR TOTAL 0.580 -3.4 -1.8 LT NECK 0.588 -3.2 -1.4 FEMUR TOTAL 0.600 -3.2 -1.6 RT NECK 0.605 -3.1 -1.3 TOTAL BODY TOTAL OTHER COMMENTS: There is low bone density of the spine. There is osteoporosis of the hips. FOLLOW-UP: Recommendation for the next bone density exam: 2 years. KENNY
== END ==
LOC: M WHC 10:24
PROVIDERS: ATTEND Physician Assistant Medical
DX: Z13.820 Encounter for screening for osteoporosis (principal); M85.88 Other specified disorders of bone density and structure, other site; M81.0 Age-related osteoporosis without current pathological fracture

== ENCOUNTER → 2019-01-19 | Outpatient (CLI) | payer MEDICARE ==
--- NOTE | 2019-01-19 11:12 | REP ---
UNILATERAL MAMMOGRAM, RIGHT BREAST WITH 3D TOMOSYNTHESIS: HISTORY: Left breast cancer and mastectomy 2017. MLO and CC views of the right breast are performed with 3D tomosynthesis. Comparison 01/15/2018 as well as other prior exams. Mild fibroglandular tissue is again seen in the right breast. There is an intramammary lymph node in the upper outer quadrant, which is stable. No new mass or clustered microcalcifications are seen. IMPRESSION: BIRADS 2: BI-RADS/ACR category 2 mammogram. Benign Findings. ACR 2 benign mammogram right breast in a patient status post left mastectomy. Suggest followup mammogram in one year. This mammogram was interpreted with the aid of an FDA-approved computer-aided detection system. A. Negative x-ray reports should not delay biopsy if a dominant or clinically suspicious mass is present. B. Four to eight percent of cancers are not identified by x-ray. C. Adenosis and dense breasts may obscure an underlying neoplasm. The patient states she/he had a clinical breast exam in September 2018. The patient letter being requested is M1 Electronically Signed by Steven Chatman MD 01/19/2019 02:12 P
== END ==
LOC: M RAD 09:37
PROVIDERS: ATTEND Radiology Radiation Oncology
DX: Z12.31 Encounter for screening mammogram for malignant neoplasm of breast (principal); Z85.3 Personal history of malignant neoplasm of breast; Z90.12 Acquired absence of left breast and nipple

== ENCOUNTER → 2019-02-23 | Outpatient (REF) | payer MEDICARE ==
[~2019-02-23] MED LIST changes: +CYAN500T8 PO; +SIMV40TA2 PO; -VITA500T3 PO
[2019-02-23 12:50] LABS: BASO # 0.1 10^3/uL (0.0-0.2); BASO % 0.6 % (0.0-1.0); EOS # 0.4 10^3/uL (0.0-0.50); EOS % 3.8 % (0.0-3.0); HEMATOCRIT 44.5 % (36.0-47.0); HEMOGLOBIN 14.5 g/dl (12.0-15.5); LYMPH # 1.6 10^3/uL (1.5-4.5); LYMPH % 16.2 % (24.0-44.0); MEAN CORPUSCULAR HEMOGLOBIN 33.3 pg (27.0-33.0); MEAN CORPUSCULAR HGB CONC 32.6 g/dl (32.0-36.5); MEAN CORPUSCULAR VOLUME 102.1 fl (80.0-96.0); MONO # 0.9 10^3/uL (0.0-0.8); MONO % 9.1 % (0.0-5.0); NEUTROPHILS # 6.8 10^3/uL (1.8-7.7); NEUTROPHILS % 69.9 % (36.0-66.0); PLATELET COUNT, AUTOMATED 217 10^3/uL (150-450); RED BLOOD COUNT 4.36 10^6/uL (4.00-5.40); WHITE BLOOD COUNT 9.7 10^3/uL (4.0-10.0)
[2019-02-23 13:43] LABS: ALBUMIN 4.1 GM/DL (3.2-5.2); ALT/SGPT 30 U/L (12-78); BILIRUBIN,TOTAL 0.3 MG/DL (0.2-1.0); BLOOD UREA NITROGEN 16 MG/DL (7-18); CALCIUM LEVEL 9.4 MG/DL (8.8-10.2); CARBON DIOXIDE LEVEL 26 MEQ/L (21-32); CHLORIDE LEVEL 103 MEQ/L (98-107); CREATININE FOR GFR 0.88 MG/DL (0.55-1.30); GLOMERULAR FILTRATION RATE > 60.0 (>39); GLUCOSE, FASTING 88 MG/DL (70-100); LDH LACTATE DEHYDROGENASE 185 U/L (84-246); POTASSIUM SERUM 4.1 MEQ/L (3.5-5.1); SODIUM LEVEL 139 MEQ/L (136-145)
== END ==
LOC: M LABDRWAD 12:05
PROVIDERS: ATTEND Internal Medicine Hematology & Oncology
DX: D64.9 Anemia, unspecified (principal)

== ENCOUNTER → 2019-12-05 | Outpatient (REF) | payer MEDICARE ==
[~2019-12-05] MED LIST changes: +ACET325T42 PO; -MAPA325T3 PO; -SIMV40TA2 PO; +SIMV40TA20 PO
[2019-12-05 13:19] LABS: BASO # 0.1 10^3/uL (0.0-0.2); BASO % 0.7 % (0.0-1.0); EOS # 0.2 10^3/uL (0.0-0.5); EOS % 1.6 % (0.0-3.0); HEMATOCRIT 44.3 % (36.0-47.0); HEMOGLOBIN 14.2 g/dl (12.0-15.5); LYMPH # 1.4 10^3/uL (1.5-5.0); MEAN CORPUSCULAR HEMOGLOBIN 32.6 pg (27.0-33.0); MEAN CORPUSCULAR HGB CONC 32.1 g/dl (32.0-36.5); MEAN CORPUSCULAR VOLUME 101.8 fl (80.0-96.0); MONO # 0.8 10^3/uL (0.0-0.8); MONO % 8.5 % (0.0-5.0); NEUTROPHILS # 6.9 10^3/uL (1.5-8.5); NEUTROPHILS % 73.7 % (36.0-66.0); PLATELET COUNT, AUTOMATED 189 10^3/uL (150-450); RED BLOOD COUNT 4.35 10^6/uL (4.00-5.40); WHITE BLOOD COUNT 9.4 10^3/uL (4.0-10.0)
[2019-12-05 13:49] LABS: ALBUMIN 3.9 GM/DL (3.2-5.2); ALT/SGPT 33 U/L (12-78); BILIRUBIN,TOTAL 0.3 MG/DL (0.2-1.0); BLOOD UREA NITROGEN 18 MG/DL (7-18); CALCIUM LEVEL 9.2 MG/DL (8.8-10.2); CARBON DIOXIDE LEVEL 24 MEQ/L (21-32); CHLORIDE LEVEL 105 MEQ/L (98-107); CHOLESTEROL LEVEL 256 MG/DL (<200); CHOLESTEROL RISK RATIO 4.571 (<5); CREATININE FOR GFR 0.86 MG/DL (0.55-1.30); GLOMERULAR FILTRATION RATE > 60.0 (>39); GLUCOSE, FASTING 90 MG/DL (70-100); HDL CHOLESTEROL 56 MG/DL (>40); LDL CHOLESTEROL 164 MG/DL (<100); NON-HDL-C 200 MG/DL; POTASSIUM SERUM 4.1 MEQ/L (3.5-5.1); SODIUM LEVEL 139 MEQ/L (136-145); TOTAL PROTEIN 7.6 GM/DL (6.4-8.2); TRIGLYCERIDES LEVEL 182 MG/DL (<150)
== END ==
LOC: M SFHCADAM 09:43
PROVIDERS: ATTEND Physician Assistant Medical
DX: D50.9 Iron deficiency anemia, unspecified (principal); E55.9 Vitamin D deficiency, unspecified; Z13.820 Encounter for screening for osteoporosis; Z13.220 Encounter for screening for lipoid disorders; Z79.899 Other long term (current) drug therapy

== ENCOUNTER → 2020-01-18 | Outpatient (REF) | payer MEDICARE ==
[~2020-01-18] MED LIST changes: -MAPA325T2 PO; +MAPA325T8 PO
== END ==
LOC: M LAB REF 12:20
PROVIDERS: ATTEND Physician Assistant
DX: N39.0 Urinary tract infection, site not specified (principal)

== ENCOUNTER → 2020-01-23 | Outpatient (CLI) | payer MEDICARE ==
--- NOTE | 2020-01-23 13:59 | REP ---
RIGHT BREAST MAMMOGRAM: HISTORY: Left breast cancer and mastectomy. COMPARISON: 01/19/2019 as well as other prior exams. Mild scattered fibroglandular tissue is stable. No new mass or clustered microcalcifications are seen. There is a small intramammary lymph node in the upper outer quadrant breast posteriorly. There is a benign calcification in the upper right breast. Volpara breast density is B. IMPRESSION: BIRADS 2: BI-RADS/ACR category 2 mammogram. Benign Findings. BIRADS category 2 benign. No suspicious mass or clustered microcalcifications in the right breast. Patient is status post left mastectomy. Recommend followup mammogram in 1 year. This mammogram was interpreted with the aid of an FDA-approved computer-aided detection system. A. Negative x-ray reports should not delay biopsy if a dominant or clinically suspicious mass is present. B. Four to eight percent of cancers are not identified by x-ray. C. Adenosis and dense breasts may obscure an underlying neoplasm. The patient states she/he had a clinical breast exam in July 2019. The patient letter being requested is M1.
== END ==
LOC: M WHC 11:12
PROVIDERS: ATTEND Internal Medicine Hematology
DX: Z12.31 Encounter for screening mammogram for malignant neoplasm of breast (principal)

== ENCOUNTER → 2020-05-28 | Outpatient (REF) | payer MEDICARE ==
[~2020-05-28] MED LIST changes: +ACET650T61 PO; +ALEN70SO PO; +PRAV20TA2 PO; -TYLE650T35 PO
[2020-05-28 14:12] LABS: BASO # 0.1 10^3/uL (0.0-0.2); BASO % 0.9 % (0.0-1.0); EOS # 0.2 10^3/uL (0.0-0.5); EOS % 2.1 % (0.0-3.0); HEMATOCRIT 41.9 % (36.0-47.0); HEMOGLOBIN 13.6 g/dl (12.0-15.5); LYMPH # 1.8 10^3/uL (1.5-5.0); LYMPH % 20.5 % (24.0-44.0); MEAN CORPUSCULAR HEMOGLOBIN 32.3 pg (27.0-33.0); MEAN CORPUSCULAR HGB CONC 32.5 g/dl (32.0-36.5); MEAN CORPUSCULAR VOLUME 99.5 fl (80.0-96.0); MONO % 10.6 % (0.0-5.0); NEUTROPHILS # 5.8 10^3/uL (1.5-8.5); NEUTROPHILS % 65.1 % (36.0-66.0); PLATELET COUNT, AUTOMATED 209 10^3/uL (150-450); RED BLOOD COUNT 4.21 10^6/uL (4.00-5.40)
[2020-05-28 14:39] LABS: ALBUMIN 3.9 GM/DL (3.2-5.2); ALT/SGPT 26 U/L (12-78); BILIRUBIN,TOTAL 0.4 MG/DL (0.2-1.0); BLOOD UREA NITROGEN 18 MG/DL (7-18); CALCIUM LEVEL 9.5 MG/DL (8.8-10.2); CARBON DIOXIDE LEVEL 29 MEQ/L (21-32); CHLORIDE LEVEL 104 MEQ/L (98-107); CHOLESTEROL LEVEL 193 MG/DL (<200); CHOLESTEROL RISK RATIO 3.446 (<5); CREATININE FOR GFR 0.93 MG/DL (0.55-1.30); FERRITIN 38 NG/ML (8-252); GLOMERULAR FILTRATION RATE > 60.0 (>39); GLUCOSE, FASTING 97 MG/DL (70-100); HDL CHOLESTEROL 56 MG/DL (>40); IRON (FE) 119 UG/DL (50-170); LDL CHOLESTEROL 113 MG/DL (<100); NON-HDL-C 137 MG/DL; POTASSIUM SERUM 4.7 MEQ/L (3.5-5.1); SODIUM LEVEL 138 MEQ/L (136-145); TOTAL IRON BINDING CAPACITY 331 UG/DL (250-450); TOTAL PROTEIN 7.6 GM/DL (6.4-8.2); TRIGLYCERIDES LEVEL 122 MG/DL (<150)
== END ==
LOC: M SFHCADAM 08:59
PROVIDERS: ATTEND Physician Assistant Medical
DX: D50.9 Iron deficiency anemia, unspecified (principal); E55.9 Vitamin D deficiency, unspecified; E78.2 Mixed hyperlipidemia

== ENCOUNTER → 2020-12-13 | Outpatient (CLI) | payer MEDICARE ==
[~2020-12-13] MED LIST changes: +CYAN500T14 PO; -CYAN500T8 PO; +NOXI1TAB PO
== END ==
LOC: M LABSMTC 10:24
PROVIDERS: ATTEND Anesthesiology
DX: Z01.818 Encounter for other preprocedural examination (principal); Z11.52 Encounter for screening for COVID-19

== ENCOUNTER 2020-12-18 07:24 | Day surgery (SDC) | payer MEDICARE ==
[~2020-12-18] VITALS: Ht 152.4 cm; Wt 56.2 kg
[~2020-12-18 07:24] MED LIST changes: +NS 1,000 ML IV ONE
[2020-12-18] MEDS ORDERED: propofoL 200 MG/20 ML VIAL As Ordered ONE ×2 (08:29→08:48)
--- NOTE | 2020-12-18 09:11 | ROOR ---
Patient Name: Lesia Choudhury Procedure Date: 12/18/2020 8:30 AM Date of : 1945 Age: 75 Room: [facility] Gender: Female Note Status: Finalized Procedure: Colonoscopy Indications: Screening for colorectal malignant neoplasm Providers: Steven Ott MD Referring MD: LEO Ron Requesting Provider: Medicines: Monitored Anesthesia Care Complications: No immediate complications. Procedure: Pre-Anesthesia Assessment: - Prior to the procedure, a History and Physical was performed, and patient medications and allergies were reviewed. The patient is competent. The risks and benefits of the procedure and the sedation options and risks were discussed with the patient. All questions were answered and informed consent was obtained. Patient identification and proposed procedure were verified by the physician, the nurse and the anesthesiologist in the procedure room. Mental Status Examination: alert and oriented. Airway Examination: normal oropharyngeal airway and neck mobility. Respiratory Examination: clear to auscultation. CV Examination: normal. Prophylactic Antibiotics: The patient does not require prophylactic antibiotics. Prior Anticoagulants: The patient has taken no previous anticoagulant or antiplatelet agents. ASA Grade Assessment: II - A patient with mild systemic disease. After reviewing the risks and benefits, the patient was deemed in satisfactory condition to undergo the procedure. The anesthesia plan was to use monitored anesthesia care (MAC). Immediately prior to administration of medications, the patient was re-assessed for adequacy to receive sedatives. The heart rate, respiratory rate, oxygen saturations, blood pressure, adequacy of pulmonary ventilation, and response to care were monitored throughout the procedure. The physical status of the patient was re-assessed after the procedure. The Colonoscope was introduced through the anus and advanced to the cecum, identified by appendiceal orifice and ileocecal valve. The colonoscopy was performed without difficulty. The patient tolerated the procedure well. The quality of the bowel preparation was. The ileocecal valve, appendiceal orifice, and rectum were photographed. Scope insertion time was 3 minutes. Scope withdrawal time was 9 minutes. The total duration of the procedure was 12 minutes. Findings: The perianal and digital rectal examinations were normal. Three sessile polyps were found in the recto-sigmoid colon and ascending colon. The polyps were 3 to 5 mm in size. These polyps were removed with a cold snare. Resection and retrieval were complete. Verification of patient identification for the specimen was done by the physician and nurse using the patient's name, date and medical record number. Estimated blood loss was minimal. Non-bleeding external and internal hemorrhoids were found during retroflexion. The hemorrhoids were medium-sized. Impression: - Three 3 to 5 mm polyps at the recto-sigmoid colon and in the ascending colon, removed with a cold snare. Resected and retrieved. - Non-bleeding external and internal hemorrhoids. Recommendation: - Patient has a contact number available for emergencies. The signs and symptoms of potential delayed complications were discussed with the patient. Return to normal activities tomorrow. Written discharge instructions were provided to the patient. - High fiber diet. - Continue present medications. - Await pathology results. - Repeat colonoscopy in 5 years for surveillance based on pathology results and depending on clinical and functional status. - Telephone GI clinic for pathology results in 2 weeks. - Return to primary care physician. Procedure Code(s): --- Professional --- 61774, Colonoscopy, flexible; with removal of tumor(s), polyp(s), or other lesion(s) by snare technique Diagnosis Code(s): --- Professional --- Z12.11, Encounter for screening for malignant neoplasm of colon K63.5, Polyp of colon K64.8, Other hemorrhoids CPT copyright 2019 [employer]. All rights reserved. The codes documented in this report are preliminary and upon reconditioner review may be revised to meet current compliance requirements. Steven Ott MD Steven Ott MD 12/18/2020 9:10:56 AM Electronically signed by Steven Ott MD Number of Addenda: 0 Note Initiated On: 12/18/2020 8:30 AM Estimated Blood Loss: Estimated blood loss was minimal.
[2020-12-18 09:20] VITALS: BP 139/60
== END 2020-12-18 09:50 | disposition home or self-care (01) ==
LOC: M OPP 07:24
PROVIDERS: ATTEND Internal Medicine Gastroenterology
DX: Z12.11 Encounter for screening for malignant neoplasm of colon (principal); K63.5 Polyp of colon; K64.8 Other hemorrhoids; E78.5 Hyperlipidemia, unspecified; J44.9 Chronic obstructive pulmonary disease, unspecified; F17.210 Nicotine dependence, cigarettes, uncomplicated; Z85.3 Personal history of malignant neoplasm of breast; Z92.21 Personal history of antineoplastic chemotherapy; Z92.3 Personal history of irradiation; Z87.442 Personal history of urinary calculi; Z79.899 Other long term (current) drug therapy; Z80.41 Family history of malignant neoplasm of ovary; Z80.3 Family history of malignant neoplasm of breast; Z83.6 Family history of other diseases of the respiratory system

== ENCOUNTER → 2021-01-14 | Outpatient (REF) | payer MEDICARE ==
[~2021-01-14] MED LIST changes: -NS 1,000 ML IV ONE
[2021-01-15 13:04] LABS: BASO # 0.1 10^3/uL (0.0-0.2); BASO % 0.8 % (0.0-1.0); EOS # 0.1 10^3/uL (0.0-0.5); EOS % 1.4 % (0.0-3.0); HEMOGLOBIN 14.2 g/dl (12.0-15.5); LYMPH % 21.1 % (24.0-44.0); MEAN CORPUSCULAR HEMOGLOBIN 32.4 pg (27.0-33.0); MEAN CORPUSCULAR HGB CONC 32.3 g/dl (32.0-36.5); MEAN CORPUSCULAR VOLUME 100.5 fl (80.0-96.0); MONO # 0.9 10^3/uL (0.0-0.8); MONO % 9.3 % (2.0-8.0); NEUTROPHILS # 6.4 10^3/uL (1.5-8.5); NEUTROPHILS % 66.9 % (36.0-66.0); PLATELET COUNT, AUTOMATED 220 10^3/uL (150-450); RED BLOOD COUNT 4.38 10^6/uL (4.00-5.40); WHITE BLOOD COUNT 9.5 10^3/uL (4.0-10.0)
[2021-01-15 13:39] LABS: ALT/SGPT 22 U/L (12-78); BILIRUBIN,TOTAL 0.3 MG/DL (0.2-1.0); BLOOD UREA NITROGEN 19 MG/DL (7-18); CALCIUM LEVEL 10.2 MG/DL (8.8-10.2); CARBON DIOXIDE LEVEL 26 MEQ/L (21-32); CHLORIDE LEVEL 103 MEQ/L (98-107); CHOLESTEROL LEVEL 201 MG/DL (<200); CHOLESTEROL RISK RATIO 3.295 (<5); CREATININE FOR GFR 0.82 MG/DL (0.55-1.30); FERRITIN 38 NG/ML (8-252); GLOMERULAR FILTRATION RATE > 60.0 (>39); GLUCOSE, FASTING 84 MG/DL (70-100); HDL CHOLESTEROL 61 MG/DL (>40); IRON (FE) 80 UG/DL (50-170); LDL CHOLESTEROL 115 MG/DL (<100); NON-HDL-C 140 MG/DL; PERCENT SATURATION 22.3 % (13.2-45.0); SODIUM LEVEL 138 MEQ/L (136-145); TOTAL 25(OH) VITAMIN D 82.4 NG/ML (30.0-100.0); TOTAL IRON BINDING CAPACITY 359 UG/DL (250-450); TOTAL PROTEIN 7.6 GM/DL (6.4-8.2); TRIGLYCERIDES LEVEL 123 MG/DL (<150)
== END ==
LOC: M SFHCADAM 15:25
PROVIDERS: ATTEND Physician Assistant Medical
DX: D50.9 Iron deficiency anemia, unspecified (principal); E55.9 Vitamin D deficiency, unspecified; E78.2 Mixed hyperlipidemia

== ENCOUNTER → 2021-02-01 | Outpatient (CLI) | payer MEDICARE ==
--- NOTE | 2021-02-01 12:48 | REP ---
INDICATION: SCREENING RT MAMMO,S/P LT MASTECTOMY. COMPARISON: Multiple all priors reviewed TECHNIQUE: Digital mammography was carried out on the right breast in the CC and MLO projections using both 2D and 3D modalities and compared to the prior exams. By history, the patient has no complaints of a palpable breast abnormality or other significant breast complaints. Patient is status post left mastectomy due to breast cancer. FINDINGS: The right breast is unchanged in size and shape. There are no masses. There is no internal architectural distortion. There is a stable benign calcifications noted. There are no suspicious micro calcific clusters. There is no skin thickening or nipple retraction. The Volpara volumetric breast density pattern is b. IMPRESSION: BIRADS/ACR category 1 negative mammogram. This mammogram was interpreted with the aid of an FDA-approved computer-aided detection system. The patient states she had a clinical breast exam in November 2020. The patient letter being requested is M1. RECOMMENDATION: Repeat screening mammography recommended 1 year (for women over 40). <Electronically signed by Shabbir Veliz > 02/01/21 [id number]
--- NOTE | 2021-02-01 18:06 | DEXAMM ---
INDICATION: OSTEOPOROSIS. COMPARISON: 01/03/2019. TECHNIQUE: Bone density was measured using dual-energy x-ray absorptiometry (DEXA). FINDINGS: AP SPINE L1-L4 BMD 0.900 g/cm2 Young Adult T-Score -2.4 Age Matched Z-Score -0.6. LT FEMUR, TOTAL BMD 0.607 g/cm2 Young Adult T-Score -3.2 Age Matched Z-Score -1.5. LT NECK BMD 0.594 g/cm2 Young Adult T-Score -3.2 Age Matched Z-Score -1.3. RT FEMUR, TOTAL BMD 0.626 g/cm2 Young Adult T-Score -3.0 Age Matched Z-Score -1.3. RT NECK BMD 0.629 g/cm2 Young Adult T-Score -2.9 Age Matched Z-Score -1.0. IMPRESSION: There is low bone density of the spine. There is osteoporosis of the left hip. There is osteoporosis of the right hip. The density of the spine has increased 2.2% since the initial exam on 01/03/2019. The density of the left hip has increased 4.7% since initial exam on 01/03/2019. The density of the right hip has increased 4.3% since the initial exam on 01/03/2019. FOLLOW-UP: Recommendation for the next bone density exam: 2 years. <Electronically signed by Steven Chatman > 02/01/21 [id number]
== END ==
LOC: M WHC 10:59
PROVIDERS: ATTEND Specialist
DX: Z12.31 Encounter for screening mammogram for malignant neoplasm of breast (principal); Z85.3 Personal history of malignant neoplasm of breast; Z90.12 Acquired absence of left breast and nipple; M81.0 Age-related osteoporosis without current pathological fracture

== ENCOUNTER → 2021-06-12 | Outpatient (CLI) | payer MEDICARE | LOC: M LABSMTC 09:30 | PROVIDERS: ATTEND Anesthesiology | DX: Z01.812 Encounter for preprocedural laboratory examination (principal); Z20.822 Contact with and (suspected) exposure to COVID-19 ==

== ENCOUNTER 2021-06-17 09:03 | Day surgery (SDC) | payer MEDICARE ==
[~2021-06-17] VITALS: Ht 152.4 cm; Wt 57.6 kg
[~2021-06-17 09:03] MED LIST changes: +DUOVISC (0.50ML VISCOAT/0.85ML PROVISC) OPHTH KIT As Ordered ONE; +LIDOCAINE 1% SDV 5ML VIAL As Ordered ONE; +LR 1,000 ML IV SCH
--- OUTSIDE RECORDS SUMMARY | 2021-06-17 09:06 | CCD ---
Author Author [facility] Organization [facility] Address Unknown Phone Unavailable Care Team Providers Care Dial Refinisher Name Role Phone Erika Jenkins Unavailable PROBLEMS Type Condition ICD9-CM Code HEU22-CU Code Onset Dates Condition S tatus W/U Status Risk SNOMED Code Notes Problem Age-related osteoporosis without current pathological fracture M81.0 Active confirmed 33335409 Problem Skin lesion L98.9 Active confirmed 77148454 Problem Iron deficiency anemia, unspecified iron deficiency an emia type D50.9 Active confirmed 94612358 Problem Other sinusitis, unspecified chronicity J32.9 Active confirmed 24369445 Problem 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 H25.12 Active confirmed 566547818 Problem 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 Code:[address]-75) myalgias Drug Allergy 12/22 Active ENCOUNTERS from 1945 to 2021-06-11 Encounter Location Date Provider Diagnosis [facility] [address] [place] [address] May, 2021 Erika Jenkins Pre-op evaluation Z01.818 ; 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 H25.12 ; Iron deficiency anemia, unspecified iron deficiency anemia type D50.9 ; Vitamin D deficiency E55.9 and Mixed hyperlipidemia E78.2 IMMUNIZATIONS Vaccine Route Administration Date Status Influenza 18 yrs & older Flublok IM Intramuscular Jun 05, 2020 Administered Influenza (High Dose 65 & up) IM Intramuscular Jun 22, 2017 A dministered Pneumococcal Adult 0.5mL Pneumovax 23 IM Intramuscular December 15, 2017 Administered TDAP 0.5mL (Boostrix) IM Intramuscular December 16, 2018 Administe red Pneumococcal 0.5mL Prevnar 13 Unknown December 10, 2016 Ad ministered SOCIAL HISTORY Tobacco Use: Social History Observation Description Date Details (start date - stop date) Current Smoker Sex Assigned At : Social History Observation Description Sex Assigned At Unknown Audit Question Answer Notes Total Score: 1 Interpretation: Alcohol Education Language: Question Answer Notes Languages spoken: Slovenian Anabaptism: Question Answer Notes Anabaptism 99 Other Drug and Alcohol Question Answer Notes Total Score: 0 Interpretation: No problems reported Alcohol Screening: Question Answer Notes Did you have a drink containing alcohol in the past year? Ye s Points 0 Interpretation Negative How often did you have six or more drinks on one occas ion in the past year? Never (0 points) How many drinks did you have on a typica l day when you were drinking in the past year? 1 or 2 (0 points) How often did you have a drink containing alcohol in t he past year? Never (0 points) BMI Care Goal Follow-Up Question Answer Notes Below Normal BMI Follow-Up Dietary education for weight gain Tobacco Use: Question Answer Notes Are you a: current smoker Patient counseled on the dangers of tobacco use and urged to quit: 01/14/2021 How many cigarettes a day do you smoke? 6-10 Are you interested in quitting? Thinking about quitting Counseled the patient on smoking cessation, education provid ed 01/14/2021 REASON FOR REFERRAL No Information VITAL SIGNS Weight 129 lbs May, Height 5'0" in May, BMI 25.19 kg/m2 May, Heart Rate 94 /min May, Respiratory Rate 18 /min May, Temperature 96.9 degrees Fahrenheit May, Oximetry 96 May, Blood pressure systolic 122 mm Hg May, Blood pressure diastolic 70 mm Hg May, MEDICATIONS Medication SIG (Take, Route, Frequency, Duration) Notes Start Da te End Date Status Pravastatin Sodium 20 MG TAKE ONE TABLET BY MOUTH EVERY DAY for 90 Active Fosamax 70 MG 1 tablet Orally weekly for 90 days Active Vitamin D 125 MCG (5000 UT) as directed Orally Once a day Active PROCEDURES from 1945 to 2021-06-11 Procedure Date Ordered Result Body Site ELECTROCARDIOGRAM, COMPLETE EKG 2021-06-04 N/A RESULTS No Results REASON FOR VISIT left cataract MEDICAL (GENERAL) HISTORY Type Description Date Medical History CT A & P renal lithiasis wit h L hydronephrosis - stent placement 12/09/16 - Uro Medical History ulcerating L breast mass, bx pending 12/19/16 - ductal carcinoma, chemo 01/07- 05/10, completed radiation 08/21/17. Medical History CT brain 12/08 - sm vessel ischemic disea se Medical History CT chest 12/08 - 8.6 cm L breast mass Medical History anemia Medical History 12/08 bone scan uptake only at L breast a nd OA related Medical History 01/07 ECHO - nl LV size and function, + d iastolic dysfunction Medical History VIt D def Medical History Iron def anemia Medical History 11/2019 ASCVD 19% Medical History 01/09 DEXA + osteoporosis of the hips, started Fosamax took only 1 month, restarted 11/2019. Medical History 01/11 colonoscopy [place], + tub adenoma & hyperplastic polyps, repeat in 5 years Surgical History hysterectomy 1986 Surgical History kidney stone removal - both surgical and ESWL Surgical History nephrostomy tube 12/08 Surgical History colonoscopy 12/18/20 Hospitalization History Kidney stones- [facility] 12/08-12/11/16 Hospitalization History [facility]-infected wound 02/2017 Goals Section No Information Health Concerns No Information MEDICAL EQUIPMENT No Information MENTAL STATUS No Information FUNCTIONAL STATUS No Information ASSESSMENTS Encounter Date Diagnosis Assessment Notes Treatment Notes Treatm ent Clinical Notes May, Pre-op evaluation (ICD-10 - Z01.818) I discussed the risks vs. benefits of surgery with the patient in generic terms. I feel that she is at average risk for perioperative complications. She knows that there is always some risk with surgery and she has to be comfortable that, for her, the benefits of surgery outweigh the risks in order to proceed. If she has further questions regarding the specifics of the proposed surgical procedure and specific risks, she should discuss them with the surgeon. I feel that the patient's acute and chronic medical conditions are fully optimized at the present time. There are no readily alterable factors that could lower the patient's perioperative risk. I have recommended the patient stop all medications as recommended by their surgeon and anesthesia. In addition I recommend no meds the morning of her procedure. I have reviewed her EKG done today. This shows NSR and is acceptable to proceed. May, 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 (ICD-10 - H25.12) May, Iron deficiency anemia, unsp ecified iron deficiency anemia type (ICD-10 - D50.9) May, Vitamin D deficiency (ICD-10 - E55.9) May, Mixed hyperlipidemia (ICD-10 - E78.2) PLAN OF TREATMENT Treatment Notes Assessment Notes Clinical Notes Pre-op evaluation I discussed the risks vs. be nefits of surgery with the patient in generic terms. I feel that she is at average risk for perioperative complications. She knows that there is always some risk with surgery and she has to be comfortable that, for her, the benefits of surgery outweigh the risks in order to proceed. If she has further questions regarding the specifics of the proposed surgical procedure and specific risks, she should discuss them with the surgeon. I feel that the patient's acute and chronic medical conditions are fully optimized at the present time. There are no readily alterable factors that could lower the patient's perioperative risk. I have recommended the patient stop all medications as recommended by their surgeon and anesthesia. In addition I recommend no meds the morning of her procedure. I have reviewed her EKG done today. This shows NSR and is acceptable to proceed. Future Test Test Name Order Date CBC with Differential 20211203 Comprehensive Metabolic Profile (CMP) 20211203 FERRITIN [id number] IRON (FE) [id number] LIPID PANEL (CARDIAC RISK) 20211203 TSH 20211203 TOTAL IRON BINDING CAPACIT 20211203 VITAMIN D 25-HYDROXY 20211203 Next Appt Details MAW 01/12, BW before Reason: Provider Name:Erika Jenkins, 2022-01-07 10:30:00 AM, [address], , [place], [address], Insurance Providers Payer Name Payer Address Payer Phone Insured Name Patient Relati onship to Insured Coverage Start Date Coverage End Date MEDICARE COMPLETE [facility] [address] [address] [facility] [phone] SINA CORDERO self
--- OUTSIDE RECORDS SUMMARY | 2021-06-17 09:07 | CCD ---
Author Author [facility] Organization [facility] Address Unknown Phone Unavailable Support Name Relationship Address Phone RETIRED Next Of Kin [address] [place] [address] RE Next Of Kin Unknown Unavailable OD GREEN LUMBER Next Of Kin [address] [place] [address] OD GREEN LUMBAR Next Of Kin [address] [place] [address] DEVONTE CORDERO Next Of Kin [address] [place] [address] DEVONTE CORDERO ECON [address] [place] [address] Unavailable Re-disclosure Warning The records that you are about to access may contain information from federally-assisted alcohol or drug abuse programs. If such information is present, then the following federally mandated warning applies: This information has been disclosed to you from records protected by federal confidentiality rules (42 CFR part 2). The federal rules prohibit you from making any further disclosure of this information unless further disclosure is expressly permitted by the written consent of the person to whom it pertains or as otherwise permitted by 42 CFR part 2. A general authorization for the release of medical or other information is NOT sufficient for this purpose. The Federal rules restrict any use of the information to criminally investigate or prosecute any alcohol or drug abuse patient.The records that you are about to access may contain highly sensitive health information, the redisclosure of which is protected by Article 27-F of the [place] Public Health law. If you continue you may have access to information: Regarding HIV / AIDS; Provided by facilities licensed or operated by the [place] Office of Mental Health; or Provided by the [place] [facility] Office for People With Developmental Disabilities. If such information is present, then the following [place] [facility] mandated warning applies: This information has been disclosed to you from confidential records which are protected by state law. State law prohibits you from making any further disclosure of this information without the specific written consent of the person to whom it pertains, or as otherwise permitted by law. Any unauthorized further disclosure in violation of state law may result in a fine or nursing home sentence or both. A general authorization for the release of medical or other information is NOT sufficient authorization for further disc losure. Family History Family Member Name Family Member Gender Family Member Status Date o f Status Description Data Source(s) Unknown Unknown Problem MEDENT ([facility]) Unknown Male Problem MEDENT ([facility], ) () Encounters Encounter Providers Location Date Indications Data Source(s ) Office Visit, Est Pt., Level 3 PC [address] [place] [address] 06/04/2021 12:00:00 AM EDT eCW1 ([facility]) Outpatient [address] [facility] [id number] 01/14/2021 12:00:00 AM EDT eCW1 ([facility]) Unknown [address] [facility] [id number] 07/27/2020 12:00:00 AM EST eCW1 ([facility]) Outpatient [address] [facility] [id number] 06/05/2020 12:00:00 AM EDT eCW1 ([facility]) Immunizations Vaccine Date Status Description Data Source(s) COVID-19 VACCINE Pfizer 02/06/2021 12:00:00 AM EDT completed [facility] Vaccine Series Complete: YESThis Data wa s Submitted to [facility] [employer] [facility]. COVID-19 VACC, MRNA(PFIZER)/PF 02/06/2021 12:00:00 AM EDT completed [facility] COVID-19 VACC, MRNA(PFIZER)/PF 01/15/2021 12:00:00 AM EDT completed [facility] COVID-19 VACCINE Pfizer 01/15/2021 12:00:00 AM EDT completed [facility] Vaccine Series Complete: NOThis Data was Submitted to [facility] [employer]. influenza, recombinant, quadrIvalent,injectable, prese rvative free 06/05/2020 10:47:00 AM EDT completed eCW1 ([facility]) influenza, recombinant, quadrIvalent,injectable, prese rvative free 06/05/2020 10:47:00 AM EDT completed eCW1 ([facility]) influenza, recombinant, quadrIvalent,injectable, prese rvative free 06/05/2020 10:47:00 AM EDT completed eCW1 ([facility]) influenza, recombinant, quadrIvalent,injectable, prese rvative free 06/05/2020 10:47:00 AM EDT completed eCW1 ([facility]) Medications Medication Brand Name Start Date Product Form Dose Route Admi nistrative Instructions Pharmacy Instructions Status Indications Reaction Description Data Source(s) 240 mcg/0.7 mL 05/22/2021 12:00:00 AM EDT syringe 0 INJECT DIRECTED INJECT DIRECTED SOLD: 05/22/2021 [facility] moxifloxacin 5 MG/ML Ophthalmic Solution 0.5 % MOXIFLOXACIN HCL 05/22/2021 12:00:00 AM EDT drops 3 INSTILL ONE DROP INTO LEFT EYE FOUR TIMES A DAY TO BEGIN 3 DAYS PRIOR TO SURGERY INSTILL ONE DROP INTO LEFT EYE FOUR TIME S A DAY TO BEGIN 3 DAYS PRIOR TO SURGERY SOLD: 05/25/2021 [facility] 1 % 05/22/2021 12:00:00 AM EDT drops,suspension 15 INSTILL ONE DROP INTO LEFT EYE FOUR TIMES A DAY TO BEGIN AFTER SURGERY INSTILL ONE DROP INTO LEFT EYE FOUR TIMES A DAY TO BEGIN AFTER SURGERY SOLD: 05/25/2021 [facility] 0.5 % 05/22/2021 12:00:00 AM EDT drops 10 INSTILL ONE DROP INTO LEFT EYE FOUR TIMES A DAY TO BEGIN 3 DAYS PRIOR TO SURGERY INSTILL ONE DROP INTO LEFT EYE FOUR TIMES A DAY TO BEGIN 3 DAYS PRIOR TO SURGERY SOLD: 05/25/2021 [facility] 20 mg 04/23/2021 12:00:00 AM EDT tablet 90 TAKE ONE TABLET BY MOUTH EVERY DAY TAKE ONE TABLET BY MOUTH EVERY DAY SOLD: 04/24/2021 [facility] 500 mg 01/14/2021 12:00:00 AM EDT capsule 21 TAKE ONE CAPSULE BY MOUTH THREE TIMES A DAY FOR 7 DAYS TAKE ONE CAPSULE BY MOUTH THREE TIMES A DAY FOR 7 DAYS SOLD: 01/15/2021 [facility] Amoxicillin 500 MG Oral Tablet Amoxicillin 500 MG 01/14/2021 12:00: 00 AM EDT 1.0 {tablet} active Amoxicillin 500 MG eCW1 ([facility]) 70 mg 11/07/2020 12:00:00 AM EDT tablet 12 TAKE ONE TABLET BY MOUTH WEEKLY TAKE ONE TABLET BY MOUTH WEEKLY SOLD: 04/24/2021 [facility] 70 mg 11/07/2020 12:00:00 AM EDT tablet 12 TAKE ONE TABLET BY MOUTH WEEKLY TAKE ONE TABLET BY MOUTH WEEKLY SOLD: 11/10/2020 [facility] 70 mg 11/07/2020 12:00:00 AM EDT tablet 12 TAKE ONE TABLET BY MOUTH WEEKLY TAKE ONE TABLET BY MOUTH WEEKLY SOLD: 01/31/2021 [facility] 420 gram 11/02/2020 12:00:00 AM EST recon soln 4000 DRINK THE LIQUID PER THE PRE-PROCEDURE INSTRUCTIONS DRINK THE LIQUID PER THE PRE-PROCEDUR E INSTRUCTIONS SOLD: 11/05/2020 [facility] Bisacodyl 5 MG Delayed Release Oral Tablet [Dulcolax] Dulcol ax 11/01/2020 12:00:00 AM EST active M EDENT ([facility], ) Clenpiq Clenpiq 11/01/2020 12:00:00 AM EST active MEDENT ([facility], ) POLYETHYLENE GLYCOL 3350 105 MG/ML / Pot assium Chloride 0.13434 MEQ/ML / Sodium Bicarbonate 0.017 MEQ/ML / Sodium Chloride 0.0479 MEQ/ML Oral Solution [GaviLyte-N] Gavilyte-N With Flavor Pack 11/01/2020 12:00:00 AM EST active MEDENT ([facility], ) 20 mg 07/27/2020 12:00:00 AM EST tablet 90 TAKE ONE TABLET BY MOUTH EVERY DAY TAKE ONE TABLET BY MOUTH EVERY DAY SOLD: 01/24/2021 [facility] 20 mg 07/27/2020 12:00:00 AM EST tablet 90 TAKE ONE TABLET BY MOUTH EVERY DAY TAKE ONE TABLET BY MOUTH EVERY DAY SOLD: 07/30/2020 [facility] 20 mg 07/27/2020 12:00:00 AM EST tablet 90 TAKE ONE TABLET BY MOUTH EVERY DAY TAKE ONE TABLET BY MOUTH EVERY DAY SOLD: 10/25/2020 [facility] 20 mg 01/26/2020 12:00:00 AM EDT tablet 90 TAKE ONE TABLET BY MOUTH EVERY DAY TAKE ONE TABLET BY MOUTH EVERY DAY SOLD: 04/28/2020 [facility] 70 mg 12/12/2019 12:00:00 AM EDT tablet 12 TAKE 1 TABLET BY MOUTH WEEKLY TAKE 1 TABLET BY MOUTH WEEKLY SOLD: 08/20/2020 [facility] 70 mg 12/12/2019 12:00:00 AM EDT tablet 12 TAKE 1 TABLET BY MOUTH WEEKLY TAKE 1 TABLET BY MOUTH WEEKLY SOLD: 05/24/2020 [facility] Insurance Providers Payer name Policy type / Coverage type Policy ID Covered republican ID Covered republican's relationship to agudelo Policy Agudelo Plan Information [place] PPO 302/307 [id number] SP [id number] MEDICARE COMPLETE [id number] SP [id number] MEDICARE COMPLETE [id number] SP [id number] UHC UNITED MEDICARE COMPLETE G [id number] Self [id number] MEDICARE COMPLETE [id number] SP [id number] MEDICARE COMPLETE [id number] SP [id number] MEDICARE COMPLETE [id number] SP [id number] ANSI-Commercial [id number] ANSI-Medicare Part B [id number] [facility]/Medicare Solu Commercial [id number] Self [id number] ANS-Medicare Part B [id number] ANSI-Commercial [id number] [facility]/Medicare Solu Commercial [id number] Self [id number] MEDICARE COMPLETE [id number] SP [id number] [employer] Medicare Commercial [id number] Self [id number] MEDICARE COMPLETE-[facility] O [id number] S [id number] ANSI-Commercial [id number] MEDICARE [id number] SP [id number] [facility]/Medicare Solu Commercial [id number] Self [id number] MEDICARE COMPLETE-[facility] O [id number] S [id number] MEDICARE COMPLETE [id number] SP [id number] [facility] [id number] SP [id number] MEDICARE COMPLETE [id number] SP [id number] [facility]/Medicare Solu Commercial [id number] Self [id number] ANSI-Medicare Part B [id number] MEDICARE COMPLETE [id number] SP [id number] Problems, Conditions, and Diagnoses Code Display Name Description Problem Type Effective Dates Data Source(s) H25.12 [id number] 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 Problem 06/04/2021 12:00:00 AM EDT eCW1 ([facility]) J32.9 [id number] Other sinusitis, unspecified chronicity P roblem 01/14/2021 12:00:00 AM EDT eCW1 ([facility]) Surgeries/Procedures Procedure Description Date Indications Data Source(s) ECG ROUTINE ECG W/LEAST 12 LDS W/I&R 06/04/2021 12:00: 00 AM EDT eCW1 ([facility]) Colonoscopy W/ Poly 12/18/2020 12:00:00 AM EDT MEDENT ([facility], ) Immunization: Flublok Quadrivalent (18 years & older) 0.5mL IM (Influenza) 06/05/2020 12:00:00 AM EDT eCW1 ([facility]) Results ID Date Data Source VITAMIN D 25-HYDROXY 01/14/2021 12:00:00 AM EDT eCW1 ([facility]) Name Value Range Interpretation Code Description Data Elizabeth rce(s) Supporting Document(s) 82.4 30.0-100.0 TOTAL 25(OH) VITAMIN D eC W1 ([facility]) ID Date Data Source TSH 01/14/2021 12:00:00 AM EDT eCW1 ([facility]) Name Value Range Interpretation Code Description Data Elizabeth rce(s) Supporting Document(s) 1.670 0.358-3.740 THYROID STIMULATING HORM ONE eCW1 ([facility]) ID Date Data Source TOTAL IRON BINDING CAPACIT 01/14/2021 12:00:00 AM EDT eCW1 ( [facility]) Name Value Range Interpretation Code Description Data Elizabeth rce(s) Supporting Document(s) 80 50-170 IRON (FE) eCW1 ([facility]) 22.3 13.2-45.0 PERCENT SATURATION eCW1 ([facility]) 359 250-450 TOTAL IRON BINDING CAPACI TY eCW1 ([facility]) ID Date Data Source LIPID PANEL (CARDIAC RISK) 01/14/2021 12:00:00 AM EDT eCW1 ( [facility]) Name Value Range Interpretation Code Description Data Elizabeth rce(s) Supporting Document(s) Triglyceride [Mass/volume] in Serum or Plasma by calculation 123 <150 TRIGLYCERIDES LEVEL eCW1 ([facility]) Cholesterol [Moles/volume] in Serum or Plasma 201 <200 CHOLESTEROL LEVEL eCW1 ([facility]) Cholesterol in HDL [Moles/volume] in Serum or Plasma 61 >40 HDL CHOLESTEROL eCW1 ([facility]) 3.295 <5 CHOLESTEROL RISK RATIO eCW1 ([facility]) Cholesterol in LDL [Mass/volume] in Serum or Plasma by calculation 115 <100 LDL CHOLESTEROL eCW1 ([facility]) 140 NON-HDL-C eCW1 ([facility]) ID Date Data Source FERRITIN 01/14/2021 12:00:00 AM EDT eCW1 ([facility]) Name Value Range Interpretation Code Description Data Elizabeth rce(s) Supporting Document(s) 38 8-252 FERRITIN eCW1 ([facility]) ID Date Data Source Comprehensive Metabolic Profile (CMP) 01/14/2021 12:00:00 AM EDT eCW1 ([facility]) Name Value Range Interpretation Code Description Data Elizabeth rce(s) Supporting Document(s) 84 70-100 GLUCOSE, FASTING eCW1 ([facility]) 0.82 0.55-1.30 CREATININE FOR GFR eCW1 ([facility]) 19 7-18 BLOOD UREA NITROGEN eCW1 ([facility]) 138 136-145 SODIUM LEVEL eCW1 ([facility]) > 60.0 >39 GLOMERULAR FILTRATION RATE eCW 1 ([facility]) 5.0 3.5-5.1 POTASSIUM SERUM eCW1 ([facility]) 10.2 8.8-10.2 CALCIUM LEVEL eCW1 ([facility]) 20 7-37 AST/SGOT eCW1 ([facility]) 103 98-107 CHLORIDE LEVEL eCW1 ([facility]) 26 21-32 CARBON DIOXIDE LEVEL eCW1 ([facility]) 105 45-117 ALKALINE PHOSPHATASE eCW1 ([facility]) 0.3 0.2-1.0 BILIRUBIN,TOTAL eCW1 ([facility]) 22 12-78 ALT/SGPT eCW1 ([facility]) 7.6 6.4-8.2 TOTAL PROTEIN eCW1 ([facility]) 1.1 1.2-2.2 ALBUMIN/GLOBULIN RATIO eCW1 ([facility]) 4.0 3.2-5.2 ALBUMIN eCW1 ([facility]) ID Date Data Source CBC with Differential 01/14/2021 12:00:00 AM EDT eCW1 ([facility]) Name Value Range Interpretation Code Description Data Elizabeth rce(s) Supporting Document(s) 9.5 4.0-10.0 WHITE BLOOD COUNT eCW1 ([facility]) 14.2 12.0-15.5 HEMOGLOBIN eCW1 ([facility]) 44.0 36.0-47.0 HEMATOCRIT eCW1 ([facility]) 4.38 4.00-5.40 RED BLOOD COUNT eCW1 ([facility]) 32.4 27.0-33.0 MEAN CORPUSCULAR HEMOGLOB IN eCW1 ([facility]) 100.5 80.0-96.0 MEAN CORPUSCULAR VOLUME e CW1 ([facility]) 32.3 32.0-36.5 MEAN CORPUSCULAR HGB CONC eCW1 ([facility]) 12.7 11.5-14.5 RED CELL DISTRIBUTION WID TH eCW1 ([facility]) 66.9 36.0-66.0 NEUTROPHILS % eCW1 ([facility]) 21.1 24.0-44.0 LYMPH % eCW1 ([facility]) 220 150-450 PLATELET COUNT, AUTOMATED eCW1 ([facility]) 0.8 0.0-1.0 BASO % eCW1 ([facility]) 6.4 1.5-8.5 NEUTROPHILS # eCW1 ([facility]) 9.3 2.0-8.0 MONO % eCW1 ([facility]) 1.4 0.0-3.0 EOS % eCW1 ([facility]) 2.0 1.5-5.0 LYMPH # eCW1 ([facility]) 0.1 0.0-0.5 EOS # eCW1 ([facility]) 0.9 0.0-0.8 MONO # eCW1 ([facility]) 0.1 0.0-0.2 BASO # eCW1 ([facility]) ID Date Data Source [id number] 12/13/2020 10:25:00 AM EDT [facility] Name Value Range Interpretation Code Description Data Elizabeth rce(s) Supporting Document(s) SARS-CoV-2 (COVID-19) RNA [Presence] in Respiratory specimen by [facility] with probe detection Not Detected [facility] This lab was ordered by [facility] and reported by [facility]). Procedure Social History Code Duration Value Status Description Data Source(s ) Smoking 06/04/2021 12:00:00 AM EDT Current Smoker completed Curre nt Smoker eCW1 ([facility]) Smoking 01/14/2021 12:00:00 AM EDT Current Smoker completed Curre nt Smoker eCW1 ([facility]) Smoking 06/05/2020 12:00:00 AM EDT Current Smoker completed Curre nt Smoker eCW1 ([facility]) Smoking 06/05/2020 12:00:00 AM EDT Current Smoker completed Curre nt Smoker eCW1 ([facility]) Vital Signs ID Date Data Source UNK Name Value Range Interpretation Code Description Data Source(s) Body weight 129 [lb_av] 129 [lb_av] eCW1 ([facility]) Body height [in_i] eCW1 ([facility]) Body mass index (BMI) [Ratio] 25.19 kg/m2 25.19 kg/m2 eCW1 ([facility]) Heart rate 94 /min 94 /min eCW1 ([facility]) Respiratory rate 18 /min 18 /min W1 ([facility]) Body temperature 96.9 [degF] 96.9 [degF] eCW1 ( [facility]) Systolic blood pressure 122 mm[Hg] 122 mm[Hg] e CW1 ([facility]) Diastolic blood pressure 70 mm[Hg] 70 mm[Hg] eCW1 ([facility]) Body mass index (BMI) [Ratio] 24.61 kg/m2 24.61 kg/m2 eCW1 ([facility]) Heart rate 79 /min 79 /min eCW1 ([facility]) Respiratory rate 18 /min 18 /min eCW1 ([facility]) Body temperature 97.3 [degF] 97.3 [degF] eCW1 ( [facility]) Systolic blood pressure 120 mm[Hg] 120 mm[Hg] e CW1 ([facility]) Diastolic blood pressure 76 mm[Hg] 76 mm[Hg] eCW1 ([facility]) Body weight 126 [lb_av] 126 [lb_av] eCW1 ([facility]) Body height [in_i] eCW1 ([facility]) Systolic blood pressure 142 mm[Hg] 142 mm[Hg] M EDENT ([facility], ) Diastolic blood pressure 78 mm[Hg] 78 mm[Hg] MEDENT ([facility]) Body height 60 [in_i] 60 [in_i] MEDENT ([facility]) 5'0" Body weight 128.00 [lb_av] 128.00 [lb_av] MEDEN T ([facility]) Body mass index (BMI) [Ratio] 25.0 kg/m2 25.0 k g/m2 MEDENT ([facility]) Strang body weight 100 [lb_av] 100 [lb_av] MEDEN T ([facility]) Body weight 58.061 kg 58.[facility] Body surface area Derived from formula 1.54 m2 1.54 m2 MEDENT ([facility]) Body weight 128.6 [lb_av] 128.6 [lb_av] eCW1 ([facility]) Body height [in_i] eCW1 ([facility]) Body mass index (BMI) [Ratio] 25.11 kg/m2 25.11 kg/m2 eCW1 ([facility]) Heart rate 87 /min 87 /min eCW1 ([facility]) Respiratory rate 18 /min 18 /min eCW1 ([facility]) Body temperature 96.6 [degF] 96.6 [degF] eCW1 ( [facility]) Systolic blood pressure 122 mm[Hg] 122 mm[Hg] e CW1 ([facility]) Diastolic blood pressure 76 mm[Hg] 76 mm[Hg] eCW1 ([facility]) Patient Treatment Plan of Care Planned Activity Planned Date Details Description Data Source (s) Amoxicillin 500 MG Oral Tablet 01/14/2021 12:00:00 AM EDT eCW1 ([facility])
[2021-06-17] MEDS ORDERED: CYCLOPENTOLATE 1% OPHTH SOLN 2 ML BTL OS SCH (09:50)
[2021-06-17] MEDS ORDERED: TETRACAINE 0.5% OPHTH SOLN 4ML OS SCH (09:50)
[2021-06-17] MEDS ORDERED: PHENYLEPHRINE 2.5% OPHTH SOL 2ML OS SCH (09:50)
[2021-06-17] MEDS ORDERED: FLURBIPROFEN 0.03% OPHTH SOLN 2.5 ML OS SCH (09:50)
[2021-06-17] MEDS ORDERED: fentaNYL 100 MCG/2 ML INJECTION (J3010) As Ordered ONE (11:48)
[2021-06-17] MEDS ORDERED: MIDAZOLAM INJ 2MG/2ML VIAL (J2250 PER 1MG) As Ordered ONE (11:48)
[2021-06-17 12:20] VITALS: BP 150/67
--- NOTE | 2021-06-21 08:59 | RO ---
DATE OF SURGERY: 06/17/2021 PREOPERATIVE DIAGNOSIS: Senile cataract left eye. POSTOPERATIVE DIAGNOSIS: Senile cataract left eye. PROCEDURE: Phacoemulsification with posterior chamber intraocular lens implant left eye. SURGEON: Bryon Mcadams Jr., DO SUPERVISOR NUT PROCESSING: ANESTHESIA: IV sedation. DESCRIPTION OF PROCEDURE: The patient was brought into the operating room and given monitored anesthesia by the department of anesthesia by IV route. The patient was then given a standard prep by using betadine solution. One drop of tetracaine was placed in the eye prior to the prep. The patient was then draped in the usual manner. Lid speculum was placed in the eye. The eye was grasped with 0.12 forceps for better exposure of the cornea. A 15-degree stab blade was made at 4-oclock position. 0.3 mL of 1% lidocaine in a syringe attached to a cannula was inserted into the anterior chamber through the port site. Viscoelastic was inserted into the anterior chamber through the port site. A 2.75 mm clear cornea keratome blade was then used to make a clear corneal wound at 3-oclock position. A cystotome was used to start a continuous tear capsulorrhexis, which was completed with Utrata forceps. Balanced salt solution (BSS) in a syringe attached to a cannula was then used to hydrodissect the lens nucleus. Phacoemulsification was then used to remove the lens nucleus using a divide and conquer-type technique. After this was completed, irrigation and aspiration apparatus was brought into the anterior chamber and the remaining cortical material was removed. ProVisc was inserted into the capsular bag. We then inserted a foldable lens, an Pancho AcrySof one-piece lens. It was then dialed into place using a Octaviano pusher. Once the lens was in place, irrigation and aspiration was reinserted into the anterior chamber and the remaining ProVisc was removed. BSS was inserted through the port site, and then the port site was hydrated. The wound was checked. There was no need for sutures at this time. The patient then had the lid speculum removed. The shield was placed over the eye, and the patient was brought back to ambulatory surgery in stable condition. The patient tolerated the procedure well. Phacoemulsification time was 12.68 seconds. Besivance drops were placed in the eye in ambulatory surgery. KENNY
== END 2021-06-17 12:42 | disposition home or self-care (01) ==
LOC: M SDC 09:03
PROVIDERS: ATTEND Ophthalmology
DX: H25.12 Age-related nuclear cataract, left eye (principal); Z92.21 Personal history of antineoplastic chemotherapy; K21.9 Gastro-esophageal reflux disease without esophagitis; D64.9 Anemia, unspecified; M81.0 Age-related osteoporosis without current pathological fracture; R06.83 Snoring; Z92.3 Personal history of irradiation; Z85.3 Personal history of malignant neoplasm of breast; Z87.442 Personal history of urinary calculi; F17.210 Nicotine dependence, cigarettes, uncomplicated; Z79.899 Other long term (current) drug therapy
CPT/HCPCS: 66984; J2250; J3010; V2632

== ENCOUNTER → 2021-07-10 | Outpatient (CLI) | payer MEDICARE ==
[~2021-07-10] MED LIST changes: -DUOVISC (0.50ML VISCOAT/0.85ML PROVISC) OPHTH KIT As Ordered ONE; -LIDOCAINE 1% SDV 5ML VIAL As Ordered ONE; -LR 1,000 ML IV SCH
== END ==
LOC: M LABSMTC 11:40
PROVIDERS: ATTEND Anesthesiology
DX: Z01.818 Encounter for other preprocedural examination (principal); Z11.52 Encounter for screening for COVID-19

== ENCOUNTER 2021-07-15 07:57 | Day surgery (SDC) | payer MEDICARE ==
[~2021-07-15] VITALS: Ht 152.4 cm; Wt 58.1 kg
[~2021-07-15 07:57] MED LIST changes: +CYCLOPENTOLATE 1% OPHTH SOLN 2 ML BTL OD SCH; +DUOVISC (0.50ML VISCOAT/0.85ML PROVISC) OPHTH KIT As Ordered ONE; +FLURBIPROFEN 0.03% OPHTH SOLN 2.5 ML OD SCH; +LIDOCAINE 1% SDV 5ML VIAL As Ordered ONE; +LR 1,000 ML IV SCH; +MIDAZOLAM INJ 2MG/2ML VIAL (J2250 PER 1MG) As Ordered ONE; +PHENYLEPHRINE 2.5% OPHTH SOL 2ML OD SCH; +TETRACAINE 0.5% OPHTH SOLN 4ML OD SCH; +fentaNYL 100 MCG/2 ML INJECTION (J3010) As Ordered ONE
[2021-07-15 10:30] VITALS: BP 131/63
--- NOTE | 2021-07-15 11:36 | RO ---
OPERATIVE NOTE DATE OF OPERATION: 07/15/2021 PREOPERATIVE DIAGNOSIS: Mature cataract, right eye. POSTOPERATIVE DIAGNOSIS: Mature cataract, right eye PROCEDURE: Phacoemulsification with posterior chamber intraocular lens of the left eye. PHACO TIME: 7.14 seconds SURGEON: Bryon Mcadams Jr, DO DESCRIPTION OF PROCEDURE: Patient was brought back to the operating room. Patient positioned on the table. Patient then was prepped and draped in the usual manner using Betadine solution. A lid speculum was placed in the right eye. A 1 mm stab blade was used to make a clear corneal stab incision at 10 o'clock limbus. Then a syringe containing 1% lidocaine attached to a cannula was brought to the port site and approximately 0.3 mL of the Lidocaine was injected into the anterior chamber to help anesthetize the internal structures. Then Viscoat in a syringe attached to a cannula was then brought to the port site, we filled the anterior chamber with viscoelastic. Then a 2.75 keratome blade was used to make a clear corneal wound at 9 o'clock position. Then cystitome followed by Utrata forceps were then used to make a continuous tear capsulorrhexis. BSS in a syringe attached to a cannula was then used to hydrodissect the lens nucleus from the capsular bag. The phacoemulsification apparatus was brought through the temporal wound and lens nucleus was removed with [id number] technique. Irrigation/aspiration apparatus was brought through the temporal wound and remaining cortical material was stripped away from the capsular bag. Provisc in syringe attached to a cannula was brought to the temporal wound and filled the capsular bag and anterior chamber with viscoelastic. Then Pancho AcrySof one-piece foldable lens brought through the temporal wound into the capsular bag, dialed into position with the aid of Octaviano pusher. Irrigation/aspiration apparatus was brought back to the temporal wound into the anterior chamber and remaining viscoelastic material was removed. Then BSS in a syringe attached to a cannula was used to hydrate the corneal wound. The lid speculum was removed. The patient was brought to ambulator surgery in stable condition. The patient tolerated the procedure well.
== END 2021-07-15 10:30 | disposition home or self-care (01) ==
LOC: M SDC 07:57
PROVIDERS: ATTEND Ophthalmology
DX: H25.11 Age-related nuclear cataract, right eye (principal)
CPT/HCPCS: 66984; J2250; J3010; V2632

== ENCOUNTER → 2021-12-30 | Outpatient (REF) | payer MEDICARE ==
[~2021-12-30] MED LIST changes: -ALEN70SO PO; +ALEN70SO2 PO; -CYCLOPENTOLATE 1% OPHTH SOLN 2 ML BTL OD SCH; -DUOVISC (0.50ML VISCOAT/0.85ML PROVISC) OPHTH KIT As Ordered ONE; -FLURBIPROFEN 0.03% OPHTH SOLN 2.5 ML OD SCH; -LIDOCAINE 1% SDV 5ML VIAL As Ordered ONE; -LR 1,000 ML IV SCH; -MIDAZOLAM INJ 2MG/2ML VIAL (J2250 PER 1MG) As Ordered ONE; -PHENYLEPHRINE 2.5% OPHTH SOL 2ML OD SCH; -TETRACAINE 0.5% OPHTH SOLN 4ML OD SCH; -fentaNYL 100 MCG/2 ML INJECTION (J3010) As Ordered ONE
[2021-12-30 13:58] LABS: BASO # 0.1 10^3/uL (0.0-0.2); BASO % 0.6 % (0.0-1.0); EOS # 0.1 10^3/uL (0.0-0.5); EOS % 0.8 % (0.0-3.0); HEMATOCRIT 44.1 % (36.0-47.0); HEMOGLOBIN 14.4 g/dl (12.0-15.5); LYMPH # 1.8 10^3/uL (1.5-5.0); LYMPH % 17.7 % (24.0-44.0); MEAN CORPUSCULAR HGB CONC 32.7 g/dl (32.0-36.5); MEAN CORPUSCULAR VOLUME 100.9 fl (80.0-96.0); MONO # 1.1 10^3/uL (0.0-0.8); MONO % 10.8 % (2.0-8.0); NEUTROPHILS % 69.7 % (36.0-66.0); PLATELET COUNT, AUTOMATED 185 10^3/uL (150-450); RED BLOOD COUNT 4.37 10^6/uL (4.00-5.40)
[2021-12-30 14:44] LABS: CHOLESTEROL RISK RATIO 3.259 (<5); PERCENT SATURATION 29.2 % (13.2-45.0); THYROID STIMULATING HORMONE 1.23 uIU/ML (0.358-3.740); TOTAL 25(OH) VITAMIN D 100.3 NG/ML (30.0-100.0)
== END ==
LOC: M SFHCADAM 11:32
PROVIDERS: ATTEND Physician Assistant Medical
DX: D50.9 Iron deficiency anemia, unspecified (principal); E55.9 Vitamin D deficiency, unspecified; E78.2 Mixed hyperlipidemia

== ENCOUNTER → 2022-02-10 | Outpatient (CLI) | payer MEDICARE | LOC: M WHC 10:45 | PROVIDERS: ATTEND Specialist | DX: Z12.31 Encounter for screening mammogram for malignant neoplasm of breast (principal); Z90.12 Acquired absence of left breast and nipple; Z85.3 Personal history of malignant neoplasm of breast; Z80.3 Family history of malignant neoplasm of breast; Z80.41 Family history of malignant neoplasm of ovary; Z92.21 Personal history of antineoplastic chemotherapy; Z92.3 Personal history of irradiation ==

== ENCOUNTER → 2023-01-15 | Outpatient (REF) | payer MEDICARE ==
[~2023-01-15] MED LIST changes: +NYST-38 SS; -NYST50SS SS
[2023-01-15 14:30] LABS: BASO # 0.1 10^3/uL (0.0-0.2); BASO % 0.8 % (0.0-1.0); EOS # 0.1 10^3/uL (0.0-0.5); EOS % 1.2 % (0.0-3.0); HEMATOCRIT 42.2 % (36.0-47.0); LYMPH # 1.6 10^3/uL (1.5-5.0); LYMPH % 18.9 % (24.0-44.0); MEAN CORPUSCULAR HEMOGLOBIN 33.3 pg (27.0-33.0); MEAN CORPUSCULAR HGB CONC 33.2 g/dl (32.0-36.5); MEAN CORPUSCULAR VOLUME 100.5 fl (80.0-96.0); MONO % 11.8 % (2.0-8.0); NEUTROPHILS # 5.7 10^3/uL (1.5-8.5); NEUTROPHILS % 66.8 % (36.0-66.0); PLATELET COUNT, AUTOMATED 196 10^3/uL (150-450); WHITE BLOOD COUNT 8.5 10^3/uL (4.0-10.0)
[2023-01-15 14:33] LABS: THYROID STIMULATING HORMONE 2.042 uIU/ML (0.55-4.78); TOTAL 25(OH) VITAMIN D 87.4 NG/ML (20.0-100.0)
[2023-01-15 14:34] LABS: ALBUMIN 3.8 G/DL (3.2-5.2); ALKALINE PHOSPHATASE 120 U/L (46-116); ALT/SGPT 20 U/L (7.0-40); AST/SGOT 17 U/L (<34); BILIRUBIN,TOTAL 0.5 MG/DL (0.3-1.2); BLOOD UREA NITROGEN 20 MG/DL (9-23); CALCIUM LEVEL 9.3 MG/DL (8.3-10.6); CARBON DIOXIDE LEVEL 28 MMOL/L (20-31); CHLORIDE LEVEL 103 MMOL/L (98-107); CHOLESTEROL LEVEL 171 MG/DL (<200); CHOLESTEROL RISK RATIO 2.91 (<5); CREATININE FOR GFR 0.77 MG/DL (0.55-1.30); FOLATE 11.6 NG/ML (>5.4); GLOMERULAR FILTRATION RATE > 60.0 (>39); GLUCOSE, FASTING 90 MG/DL (74-106); HDL CHOLESTEROL 58.6 MG/DL (>40); IRON (FE) 105 UG/DL (50-170); LDL CHOLESTEROL 89.2 MG/DL (<100); NON-HDL-C 112.4 MG/DL; PERCENT SATURATION 33.5 % (13.2-45.0); POTASSIUM SERUM 4.2 MMOL/L (3.5-5.1); SODIUM LEVEL 139 MMOL/L (136-145); TOTAL IRON BINDING CAPACITY 313 UG/DL (250-425); TOTAL PROTEIN 6.7 G/DL (5.7-8.2); TRIGLYCERIDES LEVEL 116 MG/DL (<150)
[2023-01-15 14:36] LABS: VITAMIN B12 LEVEL 415 PG/ML (211-911)
== END ==
LOC: M SFHCADAM 08:18
PROVIDERS: ATTEND Physician Assistant Medical
DX: E78.2 Mixed hyperlipidemia (principal); D50.9 Iron deficiency anemia, unspecified; E55.9 Vitamin D deficiency, unspecified; M81.0 Age-related osteoporosis without current pathological fracture

== ENCOUNTER → 2023-02-11 | Outpatient (CLI) | payer MEDICARE | LOC: M WHC 12:34 | PROVIDERS: ATTEND Physician Assistant Medical | DX: Z12.31 Encounter for screening mammogram for malignant neoplasm of breast (principal); M85.88 Other specified disorders of bone density and structure, other site; M81.0 Age-related osteoporosis without current pathological fracture; Z85.3 Personal history of malignant neoplasm of breast; Z90.12 Acquired absence of left breast and nipple | CPT/HCPCS: 77065; 77080; G0279 ==

== ENCOUNTER → 2023-02-11 | Outpatient (CLI) | payer MEDICARE | LOC: M WHC 12:38 | PROVIDERS: ATTEND Specialist | DX: Z12.31 Encounter for screening mammogram for malignant neoplasm of breast (principal); Z85.3 Personal history of malignant neoplasm of breast; Z90.12 Acquired absence of left breast and nipple ==

== ENCOUNTER → 2024-01-20 | Outpatient (REF) | payer MEDICARE ==
[2024-01-20 14:49] LABS: BASO # 0.1 10^3/uL (0.0-0.2); BASO % 0.6 % (0.0-1.0); EOS # 0.1 10^3/uL (0.0-0.5); HEMATOCRIT 47.6 % (36.0-47.0); HEMOGLOBIN 15.4 g/dl (12.0-15.5); LYMPH # 1.9 10^3/uL (1.5-5.0); LYMPH % 17.5 % (24.0-44.0); MEAN CORPUSCULAR HEMOGLOBIN 32.9 pg (27.0-33.0); MEAN CORPUSCULAR HGB CONC 32.4 g/dl (32.0-36.5); MEAN CORPUSCULAR VOLUME 101.7 fl (80.0-96.0); MONO # 1.3 10^3/uL (0.0-0.8); NEUTROPHILS # 7.3 10^3/uL (1.5-8.5); NEUTROPHILS % 68.2 % (36.0-66.0); PLATELET COUNT, AUTOMATED 254 10^3/uL (150-450); RED BLOOD COUNT 4.68 10^6/uL (4.00-5.40); WHITE BLOOD COUNT 10.6 10^3/uL (4.0-10.0)
[2024-01-20 14:54] LABS: TOTAL IRON BINDING CAPACITY 346 UG/DL (250-425)
[2024-01-20 14:55] LABS: ALKALINE PHOSPHATASE 128 U/L (46-116); ALT/SGPT 17 U/L (7.0-40); AST/SGOT 12 U/L (<34); BILIRUBIN,TOTAL 0.5 MG/DL (0.3-1.2); BLOOD UREA NITROGEN 17 MG/DL (9-23); CALCIUM LEVEL 10.1 MG/DL (8.3-10.6); CARBON DIOXIDE LEVEL 30 MMOL/L (20-31); CHLORIDE LEVEL 105 MMOL/L (98-107); CHOLESTEROL LEVEL 191 MG/DL (<200); CHOLESTEROL RISK RATIO 3.13 (<5); CREATININE FOR GFR 0.75 MG/DL (0.55-1.30); FERRITIN 28.3 NG/ML (7.3-270.7); GLOMERULAR FILTRATION RATE > 60.0 (>39); GLUCOSE, FASTING 106 MG/DL (74-106); HDL CHOLESTEROL 60.9 MG/DL (>40); LDL CHOLESTEROL 102.1 MG/DL (<100); NON-HDL-C 130.1 MG/DL; POTASSIUM SERUM 5.1 MMOL/L (3.5-5.1); SODIUM LEVEL 140 MMOL/L (136-145); THYROID STIMULATING HORMONE 2.431 uIU/ML (0.55-4.78); TOTAL PROTEIN 7.2 G/DL (5.7-8.2); TRIGLYCERIDES LEVEL 140 MG/DL (<150)
[2024-01-20 14:56] LABS: IRON (FE) 100 UG/DL (50-170); PERCENT SATURATION 28.9 % (13.2-45.0); TOTAL 25(OH) VITAMIN D 98.3 NG/ML (20.0-100.0)
[2024-01-20 14:57] LABS: FOLATE 17.7 NG/ML (>5.4); VITAMIN B12 LEVEL 496 PG/ML (211-911)
[2024-01-20 14:58] LABS: FREE T4 1.16 NG/DL (0.89-1.76)
== END ==
LOC: M SFHCADAM 08:36
PROVIDERS: ATTEND Physician Assistant Medical
DX: E78.2 Mixed hyperlipidemia (principal); D50.9 Iron deficiency anemia, unspecified; M81.0 Age-related osteoporosis without current pathological fracture

== ENCOUNTER → 2024-02-23 | Outpatient (CLI) | payer MEDICARE | LOC: M WHC 13:11 | PROVIDERS: ATTEND Specialist | DX: C50.919 Malignant neoplasm of unspecified site of unspecified female breast (principal); Z12.31 Encounter for screening mammogram for malignant neoplasm of breast ==

== ENCOUNTER → 2025-02-23 | Outpatient (CLI) | payer MEDICARE ==
[~2025-02-23] MED LIST changes: -PRAV20TA2 PO; +PRAV20TA78 PO
== END ==
LOC: M WHC 10:42
PROVIDERS: ATTEND Physician Assistant Medical
DX: M81.0 Age-related osteoporosis without current pathological fracture (principal); Z12.31 Encounter for screening mammogram for malignant neoplasm of breast; M85.88 Other specified disorders of bone density and structure, other site; Z85.3 Personal history of malignant neoplasm of breast; R92.311 Mammographic fatty tissue density, right breast; Z90.12 Acquired absence of left breast and nipple